=== PATIENT | female | born 1950 | race Two or more races ===

== ENCOUNTER 2020-09-14 15:02 | Emergency (ER) | payer MEDICARE, SELFPAY ==
[2020-09-14 15:56] VITALS: BP 189/81; PULSE 81; RESP 16; TEMP 36.6; O2SAT 98; BMI 45.4
[2020-09-14 19:04] VITALS: BP 151/88; PULSE 78; RESP 19; TEMP 36.6; O2SAT 98
--- NOTE | 2020-09-14 19:29 | CT_ITS ---
EXAMINATION: CT ABDOMEN AND PELVIS WITH CONTRAST CLINICAL INFORMATION: Left lower quadrant pain COMPARISON: None TECHNIQUE: Multidetector volumetric images were obtained from the superior aspect of the liver through the pubic symphysis following administration 85 mL of Omnipaque 350 intravenous contrast. Sagittal and coronal reformatted images were obtained on the technologist's workstation. Oral contrast: No This CT examination was performed using dose optimization techniques as appropriate, variously including the following: *Automated exposure control *Adjustment of mA and/or kV according to patient size (this includes techniques or standardized protocols for targeted exams where dose is matched to indication/reason for exam; i.e. extremities or head) *Use of iterative reconstruction technique DLP: 975 mGy-cm FINDINGS: LUNG BASES: The visualized lung bases are unremarkable. LIVER, GALLBLADDER, AND BILIARY TREE: The liver is normal in size, shape, and attenuation. There are a few scattered subcentimeter cysts. No suspicious liver lesions no intrahepatic or extrahepatic biliary ductal dilatation. Gallbladder unremarkable. PANCREAS: Unremarkable. SPLEEN: Unremarkable. ADRENAL GLANDS: Unremarkable. KIDNEYS AND URETERS: The kidneys are normal in size, shape, and attenuation. Subcentimeter cyst within the midpole left kidney and upper pole of the right kidney. There is a 3 mm hypodensity within the lower pole of the right kidney which is too small to characterize. No hydronephrosis, hydroureter, or calculi seen. No perinephric stranding. BLADDER: Unremarkable. GASTROINTESTINAL TRACT: There is inflammation surrounding a lobule of fat along the inferior sigmoid colon as seen on coronal image 49 and axial image 80, most compatible with epiploic appendicitis. Gastrointestinal tract otherwise unremarkable. ABDOMINAL WALL: No significant hernia is appreciated. LYMPH NODES: Normal. VASCULAR: Unremarkable. PELVIC VISCERA: Hysterectomy. Left oophorectomy. Right ovary unremarkable. OSSEOUS STRUCTURES: No acute or suspicious osseous abnormalities. CT/CT abdomen pelvis w con IMPRESSION: Findings compatible with epiploic appendagitis involving the sigmoid colon.
[2020-09-14 19:50] LABS: Basophils Percent Auto 0.4 % (0-2); Eosinophils Absolute Auto 0.2 X10*3/uL (0.0-0.4); Eosinophils Percent Auto 2.9 % (0-4); Hematocrit 45.1 % (37-47); Imm Gran Abs Auto 0.01 X10*3/uL (0.00-0.03); Imm Gran Pct Auto 0.1 % (0.0-0.4); Lymphocytes Absolute Auto 2.2 X10*3/uL (1.2-4.9); Lymphocytes Percent Auto 27.2 % (20-40); Mean Corpuscular HGB Conc 33.3 g/dl (31.0-35.0); Mean Corpuscular Hemoglobin 32.5 pg (27.0-33.0); Mean Corpuscular Volume 97.8 fL (80-98); Mean Platelet Volume 11.1 fL (9.4-12.3); Monocytes Absolute Auto 0.5 X10*3/uL (0.1-1.2); Monocytes Percent Auto 5.5 % (2-11); Neutrophils Absolute Auto 5.2 X10*3/uL (2.0-8.3); Neutrophils Percent Auto 63.9 % (45-73); Platelet Count 227 X10*3/uL (160-400); Red Blood Count 4.61 X10*6/uL (4.20-5.50); Red Cell Distribution Width 12.9 % (11.0-16.0); White Blood Count 8.2 X10*3/uL (4.8-10.8)
[2020-09-14 19:51] LABS: MANUAL DIFF FLAG NO
--- NOTE | 2020-09-14 20:00 | ED.ABDPAIN ---
HPI - Abdominal Pain General Chief Complaint: Abdominal Pain Stated Complaint: Pelvis pain Time Seen by Provider: 09/14/20 19:18 Source: patient Mode of arrival: ambulatory Limitations: no limitations History of Present Illness HPI narrative: Patient comes to the emergency room complaining of left lower quadrant pain since 05:00. Patient states she initially tried to wait it out at home, however at 15:00 the pain became very intense and decided to come to the emergency room. Patient states that she has history of constipation, today she got [id number] medicine for constipation and the pharmacy, but did not drink it because she was not feeling well and came here to the ED. patient denies previous history of diverticulosis. Patient denies vomiting, no diarrhea, no fever. Patient states the pain is 8 out of 10, constant, nonradiating. Denies urinary symptoms. Related Data Home Medications Medication Instructions Recorded Confirmed atorvastatin 1 tab PO BEDTIME 09/14/20 09/14/20 cetirizine 1 tab PO DAILY 09/14/20 09/14/20 cyclobenzaprine 1 tab PO TID PRN 09/14/20 09/14/20 famotidine 1 tab PO DAILY 09/14/20 09/14/20 Previous Rx's Medication Instructions Recorded ibuprofen 600 mg PO Q6H #14 tab 09/14/20 Allergies Allergy/AdvReac Type Severity Reaction Status Date / Time No Known Allergies Allergy Unverified 06/16/20 17:05 [No Known Allergies*] Review of Systems Review of Systems Constitutional : No Weight loss, No Fever, No Chills, No Night Sweats, No Fatigue, No Malaise ENT/Mouth : No Hearing loss, No Ear Pain, No Nasal Congestion, No Sinus Pain, No Hoarseness, No sore throat, No Rhinorrhea, No Swallowing Difficulty Eyes: No Eye Pain, No Swelling, No Redness, No Foreign Body, No Discharge, No Vision Changes Cardiovascular : No Chest Pain, No SOB, No Dyspnea on Exertion, No Orthopnea, No Edema, No Palpitations Respiratory : No Cough, No Sputum, No Wheezing, No Smoke Exposure, No Dyspnea Gastrointestinal : No Nausea, No Vomiting, No Diarrhea, No Constipation, complaining of left lower quadrant pain, No Hematochezia, No Melena Genitourinary : no irregular bleeding, No Dysuria, No Urinary Frequency, No Hematuria, No Urinary Incontinence, No Urgency, No Flank Pain, No Urinary Flow Changes, No Hesitancy Musculoskeletal : No joint pain, No Myalgias, No Joint Swelling Skin : No Skin Lesions, No rash Neuro : No Weakness, No Numbness, No Paresthesias, No Loss of Consciousness, No Dizziness, No Headache Psych : No Anxiety/Panic, No Depression, No SI/HI/AH/VH, No Social Issues, Heme/Lymph: No Bruising, No Bleeding,No Lymphadenopathy Endocrine : No Polyuria, No Polydipsia, No Temperature Intolerance Physical Exam Vital Signs: Vital Signs: Last Vital Signs Temp 97.9 F 09/14/20 19:04 Pulse 78 09/14/20 19:04 Resp 19 09/14/20 20:02 BP 151/88 H 09/14/20 19:04 Pulse Ox 98 09/14/20 19:04 Body Mass Index 45.4 Appearance: Alert. Oriented X3. No acute distress. Eyes: Pupils equal, round and reactive to light. ENT: Pharynx normal. Neck: Normal inspection. Neck supple. No lymph nodes noted. No crepitus CVS: Normal heart rate and rhythm. Pulses normal. Normal S1 and S2 Respiratory: No respiratory distress. Breath sounds normal. No Wheezing. No rales Abdomen: Soft , tender to palpation in left lower quadrant, No rigidity. No distention. good BS x4 Skin: Skin warm and dry. Normal skin color. Normal skin turgor. Extremities: No lower extremity edema. No lower extremity edema. No Lacerations. No Rash Neuro: Oriented X 3. No motor deficit. No sensory deficit. Moving all extermities. No slurred speech. Course Course Course Narrative: Patient is feeling better, I discussed with the patient the CT findings, patient does not have diverticulosis, perforation or infection. Patient will be medicated with ibuprofen prior to discharge, and her prescription will be sent to the pharmacy. MDM - Abdominal Pain Lab Data Result diagrams: 09/14/20 19:42 09/14/20 20:15 Labs: Lab Results 09/14/20 09/14/20 09/14/20 Range/Units 19:42 19:42 20:15 WBC 8.2 (4.8-10.8) X10*3/uL RBC 4.61 (4.20-5.50) X10*6/uL Hgb 15.0 (12.0-16.0) g/dl Hct 45.1 (37-47) % MCV 97.8 (80-98) fL MCH 32.5 (27.0-33.0) pg MCHC 33.3 (31.0-35.0) g/dl RDW 12.9 (11.0-16.0) % Plt Count 227 (160-400) X10*3/uL MPV 11.1 (9.4-12.3) fL Immature Gran % (Auto) 0.1 (0.0-0.4) % Neut % (Auto) 63.9 (45-73) % Lymph % (Auto) 27.2 (20-40) % [place] % (Auto) 5.5 (2-11) % Eos % (Auto) 2.9 (0-4) % Baso % (Auto) 0.4 (0-2) % Lymph # (Auto) 2.2 (1.2-4.9) X10*3/uL [place] # (Auto) 0.5 (0.1-1.2) X10*3/uL Eos # (Auto) 0.2 (0.0-0.4) X10*3/uL Baso # (Auto) 0.0 (0.0-0.2) X10*3/uL Abs Immat Gran (auto) 0.01 (0.00-0.03) X10*3/uL Absolute Neuts (auto) 5.2 (2.0-8.3) X10*3/uL Absolute Nucleated RBC 0.000 (0.0-0.012) X10*3/uL Nucleated RBC % (auto) 0.0 (0.0-0.2) /100WBC Sodium Cancelled 140 Potassium Cancelled 4.3 Chloride Cancelled 104 Carbon Dioxide Cancelled 29 Anion Gap Cancelled 11 L BUN Cancelled 17 H Creatinine Cancelled 0.83 Estim Creat Clear Calc Cancelled 82.8 Estimated GFR Cancelled > 60 Random Glucose Cancelled 91 Calcium Cancelled 9.7 Total Bilirubin Cancelled 0.4 Direct Bilirubin Cancelled 0.2 AST Cancelled 18 ALT Cancelled 11 Alkaline Phosphatase Cancelled 82 Total Protein Cancelled 7.4 Albumin Cancelled 4.[address] scan - abdomen: Radiologist's impression: This CT examination was performed using dose optimization techniques as appropriate, variously including the following: *Automated exposure control *Adjustment of mA and/or kV according to patient size (this includes techniques or standardized protocols for targeted exams where dose is matched to indication/reason for exam; i.e. extremities or head) *Use of iterative reconstruction technique DLP: 975 mGy-cm FINDINGS: LUNG BASES: The visualized lung bases are unremarkable. LIVER, GALLBLADDER, AND BILIARY TREE: The liver is normal in size, shape, and attenuation. There are a few scattered subcentimeter cysts. No suspicious liver lesions no intrahepatic or extrahepatic biliary ductal dilatation. Gallbladder unremarkable. PANCREAS: Unremarkable. SPLEEN: Unremarkable. ADRENAL GLANDS: Unremarkable. KIDNEYS AND URETERS: The kidneys are normal in size, shape, and attenuation. Subcentimeter cyst within the midpole left kidney and upper pole of the right kidney. There is a 3 mm hypodensity within the lower pole of the right kidney which is too small to characterize. No hydronephrosis, hydroureter, or calculi seen. No perinephric stranding. BLADDER: Unremarkable. GASTROINTESTINAL TRACT: There is inflammation surrounding a lobule of fat along the inferior sigmoid colon as seen on coronal image 49 and axial image 80, most compatible with epiploic appendicitis. Gastrointestinal tract otherwise unremarkable. ABDOMINAL WALL: No significant hernia is appreciated. LYMPH NODES: Normal. VASCULAR: Unremarkable. PELVIC VISCERA: Hysterectomy. Left oophorectomy. Right ovary unremarkable. OSSEOUS STRUCTURES: No acute or suspicious osseous abnormalities. CT/CT abdomen pelvis w con IMPRESSION: Findings compatible with epiploic appendagitis involving the sigmoid colon. Discharge Plan Discharge Clinical Impression: Epiploic appendagitis Patient Disposition: Home, Self-Care Instructions: Abdominal Pain (ED) Additional Instructions: Please follow-up with your primary care physician tomorrow. If you have any worsening or new symptoms, please return to the emergency room or call 911 Prescriptions: New ibuprofen 600 mg tablet 600 mg PO Q6H Qty: 14 RF: 0 No Action atorvastatin 20 mg tablet 1 tab PO BEDTIME RF: 0 cetirizine 10 mg tablet 1 tab PO DAILY RF: 0 famotidine 40 mg tablet 1 tab PO DAILY RF: 0 cyclobenzaprine 5 mg tablet 1 tab PO TID PRN (Reason: Pain) RF: 0 PMFSH Past Medical History Medical History (Updated 09/14/20 @ 22:08 by Danyelle Bucio MD) Hypercholesteremia Social History Social History Alcohol intake: never Smoked in Last 30 Days: No Use of substances other than those prescribed or required for medical reasons: No Advance Directives: No Advance Directives Information Provided: Yes
[2020-09-14 20:02] VITALS: RESP 19
[2020-09-14] MEDS: ondansetron HCL 4 MG/2 ML VIAL IVPUSH (20:02)
[2020-09-14] MEDS: Morphine Sulfate 4 MG/ML CARTRIDGE IVPUSH (20:02)
[2020-09-14 20:58] LABS: Alanine Aminotransferase 11 U/L (0-31); Albumin Level 4.6 g/dL (3.5-5.0); Alkaline Phosphatase 82 U/L (39-117); Anion Gap 11 (12-20); Aspartate Amino Transferase 18 U/L (5-31); Bilirubin Direct 0.2 mg/dL (0.0-0.5); Bilirubin Total 0.4 mg/dL (0.0-1.0); Blood Urea Nitrogen 17 mg/dL (9-16); Calcium 9.7 mg/dL (8.4-10.2); Carbon Dioxide 29 mmol/L (22-29); Chloride 104 mmol/L (96-108); Creatinine Clr Calc Pharmacy 82.8; Estimated Glomerular Filt Rate > 60; Glucose Random 91 mg/dL (60-115); Potassium 4.3 mmol/l (3.3-5.1); Sodium 140 mmol/L (135-145); Total Protein 7.4 g/dL (6.5-8.0)
[2020-09-14] MEDS: iohexoL 350 MG/ML 100 ML INFUS..BTL IV (21:21)
[2020-09-14] MEDS: Ibuprofen 600 MG TABLET PO (22:18)
== END 2020-09-14 22:24 | disposition home or self-care (01) ==
PROVIDERS: Emergency Provider Emergency Medicine; PCP Family Medicine
DX: K63.89 Other specified diseases of intestine (principal); R10.32 Left lower quadrant pain
CPT/HCPCS: 36415; 74177; 80048; 80076; 85025; 96374; 96375; 99284; J2270; J2405; Q9967

== ENCOUNTER 2021-07-10 11:29 | Emergency (ER) | payer MEDICARE, SELFPAY ==
[2021-07-10 11:54] VITALS: BP 165/90; PULSE 82; RESP 16; TEMP 37.1; O2SAT 95; BMI 46.3
== END 2021-07-10 14:15 | disposition left against medical advice (07) ==
PROVIDERS: Emergency Provider Emergency Medicine
DX: R10.2 Pelvic and perineal pain (principal)
CPT/HCPCS: 99281; 99282

== ENCOUNTER 2022-02-08 07:01 | Outpatient (REF) | payer MEDICARE, SELFPAY ==
--- NOTE | ~2022-02-08 | XR_ITS ---
EXAMINATION: XR KNEE STANDING, BILATERAL XR KNEE, RIGHT CLINICAL INFORMATION: Right knee pain COMPARISON: None TECHNIQUE: AP bilateral knees standing. Right knee 2 views. FINDINGS: AP BILATERAL KNEE: There is severe loss of medial compartment joint spaces, both knees, with moderate jane-articular spurring. The lateral compartment joints were maintained, normal. RIGHT KNEE: There is loss of patellofemoral compartment joint space with superior jane-articular spurring. There is mild suprapatellar joint effusion. No visible acute fracture, dislocation, or subluxation seen. XR/XR knee RT 2V IMPRESSION: 1. Severe degenerative changes, medial compartment, both knees, with moderate jane-articular spurring. 2. Mild suprapatellar joint effusion with degenerative changes, patellofemoral compartment, right knee. No acute fracture or loose body seen.
--- NOTE | ~2022-02-08 | XR_ITS ---
EXAMINATION: XR KNEE STANDING, BILATERAL XR KNEE, RIGHT CLINICAL INFORMATION: Right knee pain COMPARISON: None TECHNIQUE: AP bilateral knees standing. Right knee 2 views. FINDINGS: AP BILATERAL KNEE: There is severe loss of medial compartment joint spaces, both knees, with moderate jane-articular spurring. The lateral compartment joints were maintained, normal. RIGHT KNEE: There is loss of patellofemoral compartment joint space with superior jane-articular spurring. There is mild suprapatellar joint effusion. No visible acute fracture, dislocation, or subluxation seen. XR/XR knee standing BI IMPRESSION: 1. Severe degenerative changes, medial compartment, both knees, with moderate jane-articular spurring. 2. Mild suprapatellar joint effusion with degenerative changes, patellofemoral compartment, right knee. No acute fracture or loose body seen.
== END 2022-02-08 07:02 | disposition home or self-care (01) ==
LOC: HO.HOSX 07:01
PROVIDERS: Visit Provider Orthopaedic Surgery
DX: M25.561 Pain in right knee (principal); M17.11 Unilateral primary osteoarthritis, right knee; E78.00 Pure hypercholesterolemia, unspecified; E66.9 Obesity, unspecified; Z68.42 Body mass index [BMI] 45.0-49.9, adult; Z98.890 Other specified postprocedural states
CPT/HCPCS: 20610; 73560; 73565; 99202; J1100

== ENCOUNTER 2022-09-01 06:22 | Emergency (ER) | payer MEDICARE, SELFPAY ==
--- NOTE | 2022-09-01 | ECG_ITS ---
Test Reason : abd pain Blood Pressure : / mmHG Vent. Rate : 070 BPM Atrial Rate : 070 BPM P-R Int : 176 ms QRS Dur : 090 ms QT Int : 386 ms P-R-T Axes : 001 -12 033 degrees QTc Int : 416 ms Normal sinus rhythm Normal ECG When compared with ECG of 15-FEB-2019 10:46, No significant change was found Referred By: Generic ED Physician Electronically Signed By:Dangelo Stern
--- NOTE | ~2022-09-01 | CT_ITS ---
EXAMINATION: CT ABDOMEN AND PELVIS WITH CONTRAST CLINICAL INFORMATION: Abdominal pain. COMPARISON: 09/14/2020 TECHNIQUE: Multidetector volumetric images were obtained from the superior aspect of the liver through the pubic symphysis following administration 85 mL of Omnipaque 350 intravenous contrast. Sagittal and coronal reformatted images were obtained on the technologist's workstation. Oral contrast: No This CT examination was performed using dose optimization techniques as appropriate, variously including the following: *Automated exposure control *Adjustment of mA and/or kV according to patient size (this includes techniques or standardized protocols for targeted exams where dose is matched to indication/reason for exam; i.e. extremities or head) *Use of iterative reconstruction technique DLP: 1359 mGy-cm FINDINGS: LOCALIZER IMAGES: Obese body habitus. Normal bowel gas pattern. LUNG BASES: No acute findings in the visualized lung bases. No pulmonary consolidation or pleural effusion. The right diaphragm is chronically elevated, unchanged compared to 09/14/2020. LIVER: The liver has normal size, shape, and attenuation. 1 cm simple cyst is present in the left lobe of the liver. Also, there appear to be two very small cysts in the right lobe. No suspicious hepatic lesion. No liver imaging follow-up is recommended. GALLBLADDER AND BILIARY TREE: Gallbladder is without radiopaque stones, wall thickening or pericholecystic fluid. No dilated bile ducts. PANCREAS: Normal. No edema, pancreatic ductal dilatation or mass. SPLEEN: Normal. ADRENAL GLANDS: Normal. KIDNEYS AND URETERS: Kidneys are normal in size and enhance symmetrically. No nephrolithiasis or hydronephrosis. Small simple cysts of both kidneys. No renal imaging follow-up is recommended. No nephrolithiasis, hydronephrosis or perinephric edema. The ureters are unremarkable. BLADDER: Normal. No calculi or wall thickening. BOWEL AND PERITONEUM: Stomach is unremarkable. No dilated loops of bowel. The appendix is normal. No overt bowel wall thickening. No free fluid or pneumoperitoneum. There is a focus of circumscribed fat surrounded by mild haziness inferior to the sigmoid colon, corresponding to same region of mild inflammation of fat observed on 09/14/2020. If patient has pelvic pain, then this could represent recurrent epiploic appendagitis. There is no evidence of an inflamed diverticulum in this region. ABDOMINAL WALL: Unremarkable. VASCULATURE: Unremarkable. LYMPH NODES: No pathologic sized lymph nodes in the abdomen or pelvis. No inguinal lymphadenopathy. PELVIC VISCERA: Status post hysterectomy. No adnexal mass. No pelvic free fluid. MUSCULOSKELETAL: No suspicious bone lesions. 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 Chronic moderate degenerative change of L3-L4, L4-5 and L5-S1. Also, there are are multilevel discovertebral degenerative changes of the visualized lower thoracic spine. CT/CT abdomen pelvis w IV con IMPRESSION: The findings are consistent with epiploic appendagitis along the inferior sigmoid colon. Correlate for presence of pelvic pain. No new abnormalities along the gastrointestinal tract compared to 09/14/2020.
[2022-09-01 06:26] VITALS: BP 165/91; PULSE 66; RESP 18; TEMP 36.6; O2SAT 95; BMI 50.3
[2022-09-01 06:41] LABS: MANUAL DIFF FLAG NO
[2022-09-01 07:00] LABS: Basophils Percent Auto 0.7 % (0-2); Eosinophils Absolute Auto 0.2 X10*3/uL (0.0-0.4); Eosinophils Percent Auto 2.7 % (0-4); Hematocrit 41.4 % (37.0-47.0); Imm Gran Abs Auto 0.01 X10*3/uL (0.00-0.03); Imm Gran Pct Auto 0.2 % (0.0-0.4); Lymphocytes Absolute Auto 2.2 X10*3/uL (1.2-4.9); Lymphocytes Percent Auto 37.2 % (20-40); Mean Corpuscular HGB Conc 33.8 g/dl (31.0-35.0); Mean Corpuscular Volume 94.7 fL (80.0-98.0); Monocytes Absolute Auto 0.5 X10*3/uL (0.1-1.2); Monocytes Percent Auto 7.8 % (2-11); Neutrophils Absolute Auto 3.1 x10*3/uL (2.0-8.3); Neutrophils Percent Auto 51.4 % (45-73); Platelet Count 208 X10*3/uL (160-400); Red Blood Count 4.37 X10*6/uL (4.20-5.50); White Blood Count 5.9 X10*3/uL (4.8-10.8)
[2022-09-01 07:19] LABS: Influenza A PCR NEGATIVE (Negative); Influenza B PCR NEGATIVE (Negative); Resp Syncy Virus RNA Qual PCR NEGATIVE (Negative); SARS COV2 PCR INHOUSE NEGATIVE (Negative)
[2022-09-01 07:55] VITALS: BP 154/80; PULSE 72; RESP 16; TEMP 36.8; O2SAT 97
[2022-09-01 07:56] LABS: Alanine Aminotransferase 10 U/L (0-31); Albumin Level 4.1 g/dL (3.5-5.0); Alkaline Phosphatase 78 U/L (39-117); Anion Gap 12 (12-20); Aspartate Amino Transferase 18 U/L (5-31); Bilirubin Total 0.6 mg/dL (0.0-1.0); Blood Urea Nitrogen 14 mg/dL (9-16); Calcium 9.4 mg/dL (8.4-10.2); Carbon Dioxide 22 mmol/L (22-29); Chloride 106 mmol/L (96-108); Creatinine Clr Calc Pharmacy 82.5; Estimated Glomerular Filt Rate > 60; Glucose Random 98 mg/dL (60-115); Lipase 22 U/L (8-78); Potassium 4.1 mmol/L (3.3-5.1); Sodium 136 mmol/L (135-145); Total Protein 6.7 g/dL (6.5-8.0)
[2022-09-01 08:26] LABS: Appearance Urine Clear; Color Urine Yellow; Glucose Urine UA Negative (Negative); Leukocyte Esterase Urine Negative (Negative); Nitrite Urine Negative (Negative); PH 5.5 (5.0-9.0); Specific Gravity - Urine 1.015 (1.005-1.025); Urine Blood Negative (Negative); Urine Ketones Negative (Negative); Urine Protein Negative (Neg-Trace)
--- NOTE | 2022-09-01 08:27 | ED_ITS ---
HPI - General Adult General Chief complaint: General Medical Stated complaint: Abd pain/ Nausea Time Seen by Provider: 09/01/22 07:59 Source: patient Mode of arrival: ambulatory Limitations: no limitations History of Present Illness HPI narrative: 72 year old female with a past medical history of epiploic appendagitis and high cholesterol presents to the ED today with abdominal pain. The patient states she has had left lower quadrant abdominal pain for approximately 2 weeks. She did call her primary care doctor last week who told her to go to the emergency room because it will be faster , but she did not want to come at that time. Denies any nausea or vomiting. There has been no diarrhea. Pain is mil [id number] and is fairly constant. Onset (ago): week(s) Location: abdomen Radiation: non-radiation Severity: mild and moderate Quality: aching and dull Pain Consistency: constant Relieving factors: none Exacerbating factors: none Associated symptoms: denies other symptoms Related Data Home Medications Medication Instructions Recorded Confirmed atorvastatin 20 mg tablet 1 tab PO BEDTIME 09/14/20 09/14/20 cetirizine 10 mg tablet 1 tab PO DAILY 09/14/20 09/14/20 cyclobenzaprine 5 mg tablet 1 tab PO TID PRN Pain 09/14/20 09/14/20 famotidine 40 mg tablet 1 tab PO DAILY 09/14/20 09/14/20 Previous Rx's Medication Instructions Recorded ibuprofen 600 mg tablet 600 mg PO Q6H #14 tabs 09/14/20 Allergies Allergy/AdvReac Type Severity Reaction Status Date / Time No Known Allergies Allergy Verified 09/01/22 06:30 [No Known Allergies*] Review of Systems Constitutional: Constitutional: Denies chills, Denies fever(s), Denies headache(s), Denies weakness, Denies weight gain and Denies weight loss Eyes: Eyes: Denies blurry vision and Denies diplopia ENT: Denies dizziness, Denies headache(s) and Denies sore throat Cardiovascular: Cardiovascular: Denies chest pain, Denies rapid heart rate, Denies Loss of Consciousness and Denies dyspnea Respiratory: Respiratory: Denies cough, Denies dyspnea and Denies wheezing Gastrointestinal: Gastrointestinal: Reports abdominal pain, Denies consti pation, Denies diarrhea and Denies nausea Genitourinary: Genitourinary: Reports no additional female genitourinary complaints Musculoskeletal: Musculoskeletal: Reports no additional musculoskeletal complaints Neurologic: Denies Abnormal speech present, Denies dizziness, Denies headache(s) and Denies weakness Allergic/Immunologic: Allergic/Immunologic: Denies wheezing [facility] Past Medical History Attestation statement: The following information was validated with the patient. Medical History Hypercholesteremia Social History Social History Alcohol intake: never Smoked in Last 30 Days: No Use of substances other than those prescribed or required for medical reasons: No Advance Directives: No Advance Directives Information Provided: Yes Physical Exam ED Vital Signs: Vital Signs - 24 hr 09/01/22 06:26 09/01/22 07:55 09/01/22 08:32 Temperature 98 F 98.2 F Pulse Rate 66 72 70 Respiratory Rate 18 16 20 Blood Pressure 165/91 H 154/80 H 128/63 Pulse Oximetry 95 97 96 Oxygen Delivery Method Room Air Room Air Room Air 09/01/22 10:59 Temperature 98.4 F Pulse Rate 67 Respiratory Rate 16 Blood Pressure 139/62 Pulse Oximetry 94 Oxygen Delivery Method Room Air BMI result Body Mass Index 50.3 Vital signs stable and normal with mild hypertension Const General: cooperative, healthy appearing and no acute distress; No acute distress Nutritional Appearance: obese Orientation/consciousness: patient oriented x3 HENMT Head: Yes normal to inspection, Yes normocephalic and Yes atraumatic Ears: external ears normal General nose exam: Normal external nose present Face and sinus: Yes normal facial exam Eyes Eyelids: Yes eyelids normal Conjunctivae: conjunctivae normal Sclerae: sclerae normal Pupils: Equal, round and reactive pupils present EOM: EOMs intact bilaterally Neck Neck: Yes normal visual inspection and Yes full ROM Resp Effort & Inspection: normal respiratory effort and no cough Auscultation: clear to auscultation bilaterally Cardio Rate: regular rate Rhythm: regular rhythm GI Inspection: Yes obesity Palpation (GI): Soft to palpation and nontender General: Yes CVA tenderness and Yes no CVA tenderness Back/Spine/Pelvis Back: no CVA tenderness and CVA tenderness Skin General skin exam: no rashes or lesions noted, no mottling and no pallor Neuro General: patient oriented x3 Cranial nerves: Yes CN's II-XII intact bilaterally and Yes Equal, round and reactive pupils present Cognition (Neuro): normal cognition Speech: No Abnormal speech present Gait exam (Neuro): Normal gait present Medications Administered Discontinued Medications Generic Name Dose Route Start Last Admin Trade Name Ann PRN Reason Stop Dose Admin Iohexol 100 ml 09/01/22 11:11 09/01/22 11:12 Iohexol 350 Mg/Ml 100 Ml Infus..Btl IV 09/01/22 11:12 85 ml ONCE ONE Administration Medical Decision Making MDM Narrative Medical decision making narrative: 72-year-old female presenting to the ED with abdominal pain. Similar to previous episodes. The patient states she has been diagnosed with epiploic appendagitis in the past. Laboratory studies were reviewed and are documented below. CT scan normal with the exception of finding epiploic appendagitis as documented below. the patient will be discharged home with mild pain medication and instructed to follow-up with her primary care doctor Medical Records Medical records reviewed: Yes I reviewed the patient's medical records. Lab Data Lab results reviewed: Yes I reviewed the patient's lab results. Lab results narrative: labs are normal Result diagrams: 09/01/22 06:33 09/01/22 06:33 Labs: Lab Results 09/01/22 09/01/22 09/01/22 Range/Units 06:33 06:33 06:35 WBC 5.9 (4.8-10.8) X10*3/uL RBC 4.37 (4.20-5.50) X10*6/uL Hgb 14.0 (12.0-16.0) g/dl Hct 41.4 (37.0-47.0) % MCV 94.7 (80.0-98.0) fL MCH 32.0 (27.0-33.0) pg MCHC 33.8 (31.0-35.0) g/dl RDW 13.0 (11.0-16.0) % Plt Count 208 (160-400) X10*3/uL MPV 11.0 (9.4-12.3) fL Immature Gran % (Auto) 0.2 (0.0-0.4) % Neut % (Auto) 51.4 (45-73) % Lymph % (Auto) 37.2 (20-40) % [place] % (Auto) 7.8 (2-11) % Eos % (Auto) 2.7 (0-4) % Baso % (Auto) 0.7 (0-2) % Lymph # (Auto) 2.2 (1.2-4.9) X10*3/uL [place] # (Auto) 0.5 (0.1-1.2) X10*3/uL Eos # (Auto) 0.2 (0.0-0.4) X10*3/uL Baso # (Auto) 0.0 (0.0-0.2) X10*3/uL Abs Immat Gran (auto) 0.01 (0.00-0.03) X10*3/uL Absolute Neuts (auto) 3.1 (2.0-8.3) x10*3/uL Absolute Nucleated RBC 0.000 (0.0-0.012) X10*3/uL Nucleated RBC % (auto) 0.0 (0.0-0.2) /100WBC Sodium 136 (135-145) mmol/L Potassium 4.1 (3.3-5.1) mmol/L Chloride 106 (96-108) mmol/L Carbon Dioxide 22 (22-29) mmol/L Anion Gap 12 (12-20) BUN 14 (9-16) mg/dL Creatinine 0.80 (0.5-1.4) mg/dL Estim Creat Clear Calc 82.5 Estimated GFR > 60 Random Glucose 98 (60-115) mg/dL Calcium 9.4 (8.4-10.2) mg/dL Total Bilirubin 0.6 (0.0-1.0) mg/dL AST 18 (5-31) U/L ALT 10 (0-31) U/L Alkaline Phosphatase 78 (39-117) U/L Total Protein 6.7 (6.5-8.0) g/dL Albumin 4.1 (3.5-5.0) g/dL Lipase 22 (8-78) U/L Urine Color Urine Appearance Urine pH (5.0-9.0) Ur Specific [place] (1.005-1.025) Urine Protein (Neg-Trace) mg/dL Urine Glucose (UA) (Negative) mg/dL Urine Ketones (Negative) mg/dL Urine Blood (Negative) Urine Nitrite (Negative) Ur Leukocyte Esterase (Negative) Influenza Type A (PCR) NEGATIVE (Negative) Influenza Type B (PCR) NEGATIVE (Negative) RSV RNA Qual (PCR) NEGATIVE (Negative) SARS-CoV-2 RNA (RT-PCR) NEGATIVE (Negative) 09/01/22 Range/Units 08:16 WBC (4.8-10.8) X10*3/uL RBC (4.20-5.50) X10*6/uL Hgb (12.0-16.0) g/dl Hct (37.0-47.0) % MCV (80.0-98.0) fL MCH (27.0-33.0) pg MCHC (31.0-35.0) g/dl RDW (11.0-16.0) % Plt Count (160-400) X10*3/uL MPV (9.4-12.3) fL Immature Gran % (Auto) (0.0-0.4) % Neut % (Auto) (45-73) % Lymph % (Auto) (20-40) % [place] % (Auto) (2-11) % Eos % (Auto) (0-4) % Baso % (Auto) (0-2) % Lymph # (Auto) (1.2-4.9) X10*3/uL [place] # (Auto) (0.1-1.2) X10*3/uL Eos # (Auto) (0.0-0.4) X10*3/uL Baso # (Auto) (0.0-0.2) X10*3/uL Abs Immat Gran (auto) (0.00-0.03) X10*3/uL Absolute Neuts (auto) (2.0-8.3) x10*3/uL Absolute Nucleated RBC (0.0-0.012) X10*3/uL Nucleated RBC % (auto) (0.0-0.2) /100WBC Sodium (135-145) mmol/L Potassium (3.3-5.1) mmol/L Chloride (96-108) mmol/L Carbon Dioxide (22-29) mmol/L Anion Gap (12-20) BUN (9-16) mg/dL Creatinine (0.5-1.4) mg/dL Estim Creat Clear Calc Estimated GFR Random Glucose (60-115) mg/dL Calcium (8.4-10.2) mg/dL Total Bilirubin (0.0-1.0) mg/dL AST (5-31) U/L ALT (0-31) U/L Alkaline Phosphatase (39-117) U/L Total Protein (6.5-8.0) g/dL Albumin (3.5-5.0) g/dL Lipase (8-78) U/L Urine Color Yellow Urine Appearance Clear Urine pH 5.5 (5.0-9.0) Ur Specific [place] 1.015 (1.005-1.025) Urine Protein Negative (Neg-Trace) mg/dL Urine Glucose (UA) Negative (Negative) mg/dL Urine Ketones Negative (Negative) mg/dL Urine Blood Negative (Negative) Urine Nitrite Negative (Negative) Ur Leukocyte Esterase Negative (Negative) Influenza Type A (PCR) (Negative) Influenza Type B (PCR) (Negative) RSV RNA Qual (PCR) (Negative) SARS-CoV-2 RNA (RT-PCR) (Negative) Imaging Data CT scan - abdomen: Radiologist's impression: IMPRESSION: The findings are consistent with epiploic appendagitis along the inferior sigmoid colon. Correlate for presence of pelvic pain. No new abnormalities along the gastrointestinal tract compared to 09/14/2020 Discharge Plan Discharge Clinical Impression: Epiploic appendagitis, Abdominal pain Patient Disposition: Home, Self-Care Instructions: Abdominal Pain (ED) Additional Instructions: may take ibuprofen 600 mg. every every 6 hours as needed for pain. Prescriptions: No Action atorvastatin 20 mg tablet 1 tab PO BEDTIME cetirizine 10 mg tablet 1 tab PO DAILY famotidine 40 mg tablet 1 tab PO DAILY cyclobenzaprine 5 mg tablet 1 tab PO TID PRN (Reason: Pain) ibuprofen 600 mg tablet 600 mg PO Q6H Qty: 14 0RF
[2022-09-01 08:32] VITALS: BP 128/63; PULSE 70; RESP 20; O2SAT 96
[2022-09-01 10:59] VITALS: BP 139/62; PULSE 67; RESP 16; TEMP 36.9; O2SAT 94
[2022-09-01] MEDS: iohexoL 350 MG/ML 100 ML INFUS..BTL IV (11:12)
== END 2022-09-01 13:30 | disposition home or self-care (01) ==
PROVIDERS: Emergency Provider Emergency Medicine
DX: K63.89 Other specified diseases of intestine (principal); R10.32 Left lower quadrant pain; Z20.822 Contact with and (suspected) exposure to COVID-19; E78.5 Hyperlipidemia, unspecified; E66.9 Obesity, unspecified; Z68.43 Body mass index [BMI] 50.0-59.9, adult; Z79.02 Long term (current) use of antithrombotics/antiplatelets; Z79.899 Other long term (current) drug therapy
CPT/HCPCS: 0241U; 36415; 74177; 80053; 81003; 83690; 85025; 93005; 99284; Q9967

== ENCOUNTER → 2022-09-13 08:14 | Outpatient (BNVA) | payer MEDICARE, SELFPAY | PROVIDERS: Visit Provider Orthopaedic Surgery | DX: M17.11 Unilateral primary osteoarthritis, right knee (principal) | CPT/HCPCS: 20610; 99212; J1100 ==

== ENCOUNTER 2022-12-28 12:49 | Emergency (ER) | payer MEDICARE, SELFPAY ==
--- NOTE | ~2022-12-28 | XR_ITS ---
EXAMINATION: XR SHOULDER, LEFT CLINICAL INFORMATION: Left shoulder pain. COMPARISON: None available. TECHNIQUE: Three views of the left shoulder. FINDINGS: The bones and soft tissues are normal. No fracture. Glenohumeral and acromioclavicular alignment is anatomic with normal joint space. No abnormal soft tissue calcifications. XR/XR shoulder LT min 2V IMPRESSION: Unremarkable left shoulder.
--- NOTE | ~2022-12-28 | XR_ITS ---
EXAMINATION: XR CERVICAL SPINE CLINICAL INFORMATION: Neck and shoulder pain. COMPARISON: Cervical spine radiographs dated 08/18/2019. TECHNIQUE: 3 views of the cervical spine were obtained. FINDINGS: There are no prevertebral soft tissue or bony abnormalities demonstrated. No compression fractures or subluxations are identified. Alignment is maintained at the atlanto-axial articulation. The disc spaces are preserved. Mild anterior osteophyte formation is seen at C5-6. No endplate changes are seen. The prevertebral soft tissues are normal. The foramina are patent. XR/XR cervical spine 3V IMPRESSION: C5-6 mild anterior osteophyte formation without significant change. No acute abnormality or significant degenerative changes.
[2022-12-28 12:54] VITALS: BP 158/81; PULSE 70; RESP 17; TEMP 36.3; O2SAT 97; BMI 47.8
--- NOTE | 2022-12-28 12:55 | ED.GENADULT ---
HPI - General Adult General Chief complaint: Extremity Problem <MARIELLE Ruiz Last Filed: 12/28/22 17:19> Stated complaint: L arm pain no inj <MARIELLE Ruiz Last Filed: 12/28/22 17:19> Time Seen by Provider: 12/28/22 13:06 <MARIELLE Ruiz Last Filed: 12/28/22 17:19> Source: patient and RN notes reviewed <MARIELLE James Last Filed: 12/28/22 18:57> Mode of arrival: ambulatory <MARIELLE James Last Filed: 12/28/22 18:57> Limitations: no limitations <MARIELLE James Last Filed: 12/28/22 18:57> History of Present Illness HPI narrative: This is a 72-year-old female with no significant past medical history, who presents emergency department today with complaints left shoulder pain and left sided neck pain since yesterday. Patient reports that she just returned from vacation and was wearing a backpack over her back. She states that she has slowly felt her left side of her neck as well as her left shoulder start to cause her pain. She reports that she woke up this morning and her pain was significant. She has had decreased range of motion of her left shoulder secondary to the pain. She denies history of shoulder injuries in the past. She denies any fevers, chills, nausea, vomiting, diarrhea chest pain, shortness of breath, or palpitations. She took muscle relaxers this morning which provided her with no relief. She also tried a heating pad without relief. <MARIELLE James Last Filed: 12/28/22 18:57> MD complaint: Left shoulder pain <MARIELLE James Last Filed: 12/28/22 18:57> Onset (ago): day(s) <MARIELLE James Last Filed: 12/28/22 18:57> Location: upper extremity <MARIELLE aJmes Last Filed: 12/28/22 18:57> Severity: moderate <MARIELLE James Last Filed: 12/28/22 18:57> Severity scale (1-10): 5 <MARIELLE James Last Filed: 12/28/22 18:57> Quality: aching <MARIELLE James - Last Filed: 12/28/22 18:57> Pain Consistency: constant <MARIELLE James - Last Filed: 12/28/22 18:57> Relieving factors: none <MARIELLE James - Last Filed: 12/28/22 18:57> Exacerbating factors: none <MARIELLE James - Last Filed: 12/28/22 18:57> Associated symptoms: denies other symptoms <MARIELLE James - Last Filed: 12/28/22 18:57> Treatments prior to arrival: none <MARIELLE James - Last Filed: 12/28/22 18:57> Related Data Home medications: Home Medications Medication Instructions Recorded Confirmed atorvastatin 20 mg tablet 1 tab PO BEDTIME 09/14/20 09/14/20 cetirizine 10 mg tablet 1 tab PO DAILY 09/14/20 09/14/20 cyclobenzaprine 5 mg tablet 1 tab PO TID PRN Pain 09/14/20 09/14/20 famotidine 40 mg tablet 1 tab PO DAILY 09/14/20 09/14/20 Previous Rx's Medication Instructions Recorded ibuprofen 600 mg tablet 600 mg PO Q6H #14 tabs 09/14/20 acetaminophen 325 mg capsule 650 mg PO Q6H PRN pain #30 caps 12/28/22 (Tylenol) cyclobenzaprine 5 mg tablet 5 mg PO BEDTIME PRN muscle spasm 12/28/22 #5 tabs <MARIELLE Ruiz - Last Filed: 12/28/22 17:19> Allergies/adverse reactions: Allergies Allergy/AdvReac Type Severity Reaction Status Date / Time No Known Allergies Allergy Verified 09/13/22 08:22 [No Known Allergies*] <MARIELLE Ruiz - Last Filed: 12/28/22 17:19> Review of Systems Review of Systems: Yes all other systems are reviewed and are negative <MARIELLE James - Last Filed: 12/28/22 18:57> [facility] Past Medical History Medical History: Medical History Hypercholesteremia <MARIELLE Ruiz Last Filed: 12/28/22 17:19> Social History Social History: Social History Alcohol intake: never Advance Directives: Yes Advance Directives Information Provided: Yes Advance Directives on File: No <MARIELLE Ruiz - Last Filed: 12/28/22 17:19> Physical Exam ED Vital Signs: Vital Signs - 24 hr 12/28/22 12:54 12/28/22 13:07 Temperature 97.4 F 97.5 F Pulse Rate 70 76 Respiratory Rate 17 18 Blood Pressure 158/81 H 168/83 H Pulse Oximetry 97 96 Oxygen Delivery Method Room Air Room Air BMI result Body Mass Index 47.8 <MARIELLE Ruiz - Last Filed: 12/28/22 17:19> Vital Signs - 24 hr 12/28/22 12:54 12/28/22 13:07 Temperature 97.4 F 97.5 F Pulse Rate 70 76 Respiratory Rate 17 18 Blood Pressure 158/81 H 168/83 H Pulse Oximetry 97 96 Oxygen Delivery Method Room Air Room Air BMI result Body Mass Index 47.8 <MARIELLE James - Last Filed: 12/28/22 18:57> General: Awake, alert, and oriented X3. No acute distress. HEENT: Normal inspection CVS: Normal heart rate and rhythm. Pulses normal. S1-S2 regular, no murmurs rubs or gallops. Respiratory: No respiratory distress, lungs clear to auscultation bilaterally Skin: Warm, dry, no rashes noted to exposed skin. Normal skin color. Normal skin turgor. Extremities: Left shoulder with tenderness to palpation over the entire joint, patient able to flex to approximately 90?, shoulder abduction about 90?, unable to perform lift-off test secondary to pain. Positive empty can test. Distal sensation and circulation intact. MSK: No midline cervical spine tenderness. Tenderness to palpation to the left cervical paraspinous muscles with spasm. Full ROM of the neck. Neuro: Oriented X 3. No motor deficit. No sensory deficit. <MARIELLE James - Last Filed: 12/28/22 18:57> Course Course Course Narrative: RME performed by Kamille Chery PA-C. Patient is 72 year old assigned female at presenting to the emergency department with left shoulder pain. Patient's exam is consistent with a left rotator cuff injury. Imaging ordered. Patient placed back in the waiting room pending room availability and results. <MARIELLE Ruiz - Last Filed: 12/28/22 17:19> Medications Administered Discontinued Medications Generic Name Dose Route Start Last Admin Trade Name Freq PRN Reason Stop Dose Admin Cyclobenzaprine HCl 5 mg 12/28/22 14:04 12/28/22 14:26 Cyclobenzaprine Hcl 5 Mg Tablet PO 12/28/22 14:05 5 mg ONCE ONE Administration Ketorolac Tromethamine 30 mg 12/28/22 14:04 12/28/22 14:25 Ketorolac Tromethamine 30 Mg/Ml Vial IM 12/28/22 14:05 30 mg ONCE ONE Administration <MARIELLE Ruiz - Last Filed: 12/28/22 17:19> Medications Administered Discontinued Medications Generic Name Dose Route Start Last Admin Trade Name Freq PRN Reason Stop Dose Admin Cyclobenzaprine HCl 5 mg 12/28/22 14:04 12/28/22 14:26 Cyclobenzaprine Hcl 5 Mg Tablet PO 12/28/22 14:05 5 mg ONCE ONE Administration Ketorolac Tromethamine 30 mg 12/28/22 14:04 12/28/22 14:25 Ketorolac Tromethamine 30 Mg/Ml Vial IM 12/28/22 14:05 30 mg ONCE ONE Administration <MARIELLE James - Last Filed: 12/28/22 18:57> Medical Decision Making Medical Decision Making [facility] Narrative: 72 y/o F presents to the ED for left shoulder and neck pain since yesterday. Recently wearing a backpack on shoulders yesterday. No recent trauma or injury. Left shoulder x-ray unremarkable. Cervical spine x-rays revealed C5-6 mild anterior osteophyte formation without significant change. No acute abnormality or significant degenerative changes . On examination patient has tenderness palpation overlying the left cervical paraspinous muscles, no midline spine tenderness. Good range of motion of the shoulder with a positive empty can test. Patient's vital signs are stable in the department today. Patient medicated in department with Toradol 30 mg IM and flexeril 5mg PO. Patient's symptoms significantly improved, with better ROM of the left shoulder. Patient's symptoms likely secondary to muscle spasms, but can have underlying tendinous injury. Discussed this with patient, discharged on flexeril and tylenol. Advised to use left shoulder and arm to prevent adhesive capsulitis. Advised if her symptoms do not improve, to call [facility] for further management. ? <MARIELLE James - Last Filed: 12/28/22 18:57> Differential Diagnosis Differential Diagnoses: The differential diagnosis associated with the presentation includes <MARIELLE James - Last Filed: 12/28/22 18:57> Cervical sprain, cervical radiculopathy, rotator cuff injury <MARIELLE James - Last Filed: 12/28/22 18:57> Independent Interpretation I performed an independent interpretation of an: Plain X-Ray <MARIELLE James - Last Filed: 12/28/22 18:57> Interpretation: I have reviewed cervical spine and shoulder x-rays and agree with radiologist's report. <MARIELLE James - Last Filed: 12/28/22 18:57> Radiology Impression Discussion of test interpretation with radiology: I have reviewed the radiologist's reading. <MARIELLE James - Last Filed: 12/28/22 18:57> Radiologist Impression: [address] [address] XRay Report Signed Patient: Kristal Calixto MR#: [id number] : 1950 Acct:[id number] Age/Sex: 72 / F ADM Date: 12/28/22 Loc: .ED Attending Dr: Ordering Physician: Viv Feliciano Date of Service: 12/28/22 Procedure(s): XR cervical spine 3V Accession Number(s): [id number] cc: Viv Feliciano~ EXAMINATION: XR CERVICAL SPINE CLINICAL INFORMATION: Neck and shoulder pain. COMPARISON: Cervical spine radiographs dated 08/18/2019. TECHNIQUE: 3 views of the cervical spine were obtained. FINDINGS: There are no prevertebral soft tissue or bony abnormalities demonstrated. No compression fractures or subluxations are identified. Alignment is maintained at the atlanto-axial articulation. The disc spaces are preserved. Mild anterior osteophyte formation is seen at C5-6. No endplate changes are seen. The prevertebral soft tissues are normal. The foramina are patent. XR/XR cervical spine 3V IMPRESSION: C5-6 mild anterior osteophyte formation without significant change. No acute abnormality or significant degenerative changes. ? [address] [address] XRay Report Signed Patient: Kristal Calixto MR#: [id number] : 1950 Acct:[id number] Age/Sex: 72 / F ADM Date: 12/28/22 Loc: HO.ED Attending Dr: Ordering Physician: Kamille Chery Date of Service: 12/28/22 Procedure(s): XR shoulder LT min 2V Accession Number(s): [id number] cc: Kamille Chery~ EXAMINATION: XR SHOULDER, LEFT CLINICAL INFORMATION: Left shoulder pain.? COMPARISON: None available.? TECHNIQUE: Three views of the left shoulder. FINDINGS: The bones and soft tissues are normal. No fracture. Glenohumeral and acromioclavicular alignment is anatomic with normal joint space. No abnormal soft tissue calcifications.? XR/XR shoulder LT min 2V IMPRESSION: Unremarkable left shoulder. <MARIELLE James - Last Filed: 12/28/22 18:57> Discharge Plan Discharge Clinical Impression: Acute pain of left shoulder, Spasm of cervical paraspinous muscle <MARIELLE Ruiz - Last Filed: 12/28/22 17:19> Patient Disposition: Home, Self-Care <MARIELLE Ruiz - Last Filed: 12/28/22 17:19> Instructions: Muscle Spasm (ED), Shoulder Pain (ED) <MARIELLE Ruiz - Last Filed: 12/28/22 17:19> Additional Instructions: Your x-rays of your left shoulder was normal today. Your neck x-ray revealed C5-6 mild anterior osteophyte formation. Please take prescribed medications as directed. Please be advised that MUSCLE RELAXERS CAN CAUSE DROWSINESS AND DIZZINESS. Do not drink or drive while taking this medication. Follow-up with your primary care physician. If your symptoms do not improve in next week, he may want to follow-up with [facility] as there may be a tendon involvement injury in her left shoulder. Any new or worsening symptoms occur please return for re-evaluation. <MARIELLE Ruiz - Last Filed: 12/28/22 17:19> Prescriptions: New acetaminophen [Tylenol] 325 mg capsule 650 mg PO Q6H PRN (Reason: pain) Qty: 30 0RF cyclobenzaprine 5 mg tablet 5 mg PO BEDTIME PRN (Reason: muscle spasm) Qty: 5 0RF No Action atorvastatin 20 mg tablet 1 tab PO BEDTIME cetirizine 10 mg tablet 1 tab PO DAILY famotidine 40 mg tablet 1 tab PO DAILY cyclobenzaprine 5 mg tablet 1 tab PO TID PRN (Reason: Pain) ibuprofen 600 mg tablet 600 mg PO Q6H Qty: 14 0RF <MARIELLE Ruiz - Last Filed: 12/28/22 17:19> Referrals: [facility] [Provider Group] <MARIELLE Ruiz - Last Filed: 12/28/22 17:19> Interventions: ED Discharge Assessment Last Done: 12/28/22 15:30 <MARIELLE Ruiz - Last Filed: 12/28/22 17:19> Discharge Date/Time: 12/28/22 15:35 <MARIELLE Ruiz - Last Filed: 12/28/22 17:19>
[2022-12-28 13:07] VITALS: BP 168/83; PULSE 76; RESP 18; TEMP 36.4; O2SAT 96
[2022-12-28] MEDS: Ketorolac Tromethamine 30 MG/ML VIAL IM (14:25)
[2022-12-28] MEDS: Cyclobenzaprine HCl 5 MG TABLET PO (14:26)
== END 2022-12-28 15:35 | disposition home or self-care (01) ==
PROVIDERS: Emergency Provider Emergency Medicine Emergency Medical Services
DX: M25.512 Pain in left shoulder (principal); M62.838 Other muscle spasm; E78.00 Pure hypercholesterolemia, unspecified; Z79.02 Long term (current) use of antithrombotics/antiplatelets
CPT/HCPCS: 72040; 73030; 96372; 99283; 99284; J1885

== ENCOUNTER 2023-03-05 07:14 | Outpatient (REF) | payer MEDICARE, SELFPAY ==
[2023-03-05 07:34] LABS: MANUAL DIFF FLAG NO
[2023-03-05 07:41] LABS: Basophils Percent Auto 0.5 % (0-2); Eosinophils Absolute Auto 0.1 X10*3/uL (0.0-0.4); Eosinophils Percent Auto 1.7 % (0-4); Hematocrit 43.3 % (37.0-47.0); Hemoglobin 14.3 g/dl (12.0-16.0); Imm Gran Abs Auto 0.01 X10*3/uL (0.00-0.03); Imm Gran Pct Auto 0.2 % (0.0-0.4); Lymphocytes Absolute Auto 2.2 X10*3/uL (1.2-4.9); Lymphocytes Percent Auto 37.5 % (20-40); Mean Corpuscular Hemoglobin 32.4 pg (27.0-33.0); Mean Corpuscular Volume 98.2 fL (80.0-98.0); Mean Platelet Volume 10.7 fL (9.4-12.3); Monocytes Absolute Auto 0.5 X10*3/uL (0.1-1.2); Neutrophils Percent Auto 52.1 % (45-73); Platelet Count 215 X10*3/uL (160-400); Red Blood Count 4.41 X10*6/uL (4.20-5.50); Red Cell Distribution Width 13.1 % (11.0-16.0); White Blood Count 5.8 X10*3/uL (4.8-10.8)
[2023-03-05 08:21] LABS: Alanine Aminotransferase 12 U/L (0-31); Albumin Level 4.1 g/dL (3.5-5.0); Alkaline Phosphatase 78 U/L (39-117); Anion Gap 12 (12-20); Aspartate Amino Transferase 18 U/L (5-31); Bilirubin Total 0.9 mg/dL (0.0-1.0); Blood Urea Nitrogen 15 mg/dL (9-16); Carbon Dioxide 26 mmol/L (22-29); Chloride 110 mmol/L (96-108); Cholesterol 151 mg/dL; Estimated Glomerular Filt Rate > 60; Glucose Random 96 mg/dL (60-115); HDL Cholesterol 54 mg/dL; LDL Cholesterol Calculated 79 mg/dl; Potassium 4.5 mmol/L (3.3-5.1); Sodium 143 mmol/L (135-145); Total Protein 6.8 g/dL (6.5-8.0); Triglycerides 92 mg/dL
== END 2023-03-05 07:15 | disposition home or self-care (01) ==
LOC: HO.LAB 07:14
PROVIDERS: PCP Internal Medicine; Visit Provider Internal Medicine
DX: E78.00 Pure hypercholesterolemia, unspecified (principal); G47.33 Obstructive sleep apnea (adult) (pediatric); H93.13 Tinnitus, bilateral; I10 Essential (primary) hypertension
CPT/HCPCS: 36415; 80053; 80061; 84443; 85025

== ENCOUNTER 2023-04-19 15:00 | Outpatient (REF) | payer MEDICARE, SELFPAY ==
[2023-04-19 18:52] LABS: Folate 9.5 ng/mL (> or = 4.0); Vitamin B12 367 pg/mL (200-900)
[2023-04-22 19:17] LABS: Transglutaminase Ab IgG <1.0 U/mL; Transglutaminase IgA <1.0 U/mL
[2023-04-25 12:53] LABS: Vitamin D 25-OH, D2 <4 ng/mL; Vitamin D 25-OH, D3 23 ng/mL; Vitamin D 25-OH, Total 23 ng/mL (30-100)
== END 2023-04-19 15:01 | disposition home or self-care (01) ==
LOC: HO.LAB 15:00
PROVIDERS: PCP Internal Medicine; Visit Provider Nurse Practitioner Family
DX: R10.12 Left upper quadrant pain (principal); K63.89 Other specified diseases of intestine; R19.7 Diarrhea, unspecified; K59.04 Chronic idiopathic constipation; E78.00 Pure hypercholesterolemia, unspecified; E55.9 Vitamin D deficiency, unspecified
CPT/HCPCS: 36415; 82306; 82607; 82746; 86364; 99202

== ENCOUNTER 2023-04-19 15:00 | Outpatient (AMB) | payer MEDICARE, SELFPAY ==
--- NOTE | 2023-04-19 15:02 | A.OFFVIS_ITS ---
Intake Vital Signs 04/19/23 15:03 Height 5 ft 3 in Weight 263 lb BMI 46.6 Blood Pressure Location Lt brachial Position Sitting Intake Visit Reasons: Abdominal pain Intake Note: New consult for abdominal pain., acid reflex, Patient cc: abdominal pain/bloating, constipation, pressing on her rectum ??? hemorrhoids. 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 Patient previously seen GI in [place], however due to her 's illness patient wants to be closer to home. Patient states that her needs 22/04 care. Patient was diagnosed with epiploic appendagitis and reports to her colonoscopy in 2019. The patient was told that she was told that she has polyps, however unsure of what kind or when she needs to return for screening. Patient reports left upper and left lower quadrant pain, constipation and rectal pain. Patient denies melena, hematochezia, unintentional weight loss or ribbon like stools. Patient reports occasional acid reflux with dyspepsia, without dysphagia or odynophagia. Patient denies any nausea or vomiting. [facility] Medical History Hypercholesteremia Surgical History Hx of hysterectomy Hx of knee surgery Family History Father Stomach cancer Paternal Grandfather Esophageal cancer Brother Diabetes Social History Household Members: Spouse Alcohol intake: never Patient Tobacco Use Status: Never used Tobacco Review of Systems Const Denies weight gain and Denies weight loss ENT Reports no additional complaints, Denies dysphagia and Denies odynophagia Card Reports no additional complaints Resp Reports no additional complaints GI Reports abdominal pain (Epigastric), Denies belching, Denies melena, Reports bloating, Denies change in bowel habits, Denies dysphagia, Denies excessive flatus, Reports dyspepsia, Reports heartburn, Denies diarrhea, Denies loose stools, Denies nausea, Denies odynophagia and Denies vomiting Reports no additional complaints Musc Reports no additional complaints Neuro Reports no additional complaints Psych Reports no additional complaints Endo Reports no additional complaints Physical Exam Vital Signs: BMI result Body Mass Index 46.6 Const General: healthy appearing, no acute distress and well developed Nutritional Appearance: obese Orientation/consciousness: patient oriented x3 HEENT Head: Yes normal to inspection, Yes normocephalic and Yes atraumatic Face and sinus: Yes normal facial exam Mouth: Normal oral and palatal mucosa present Throat: Yes posterior oropharynx normal, Yes tonsils normal and Yes uvula midline Eyes General: appearance normal, both eyes and all related structures Neck Neck: Yes normal visual inspection, Yes full ROM and Yes trachea midline Thyroid: Thyroid normal Resp Effort & Inspection: normal respiratory effort, able to speak in complete sentences, no tracheal deviation and symmetric chest movement Auscultation: clear to auscultation bilaterally Cardio Jugular venous distension: no JVD Rate: regular rate Heart sounds: S1 normal heart sound present, S2 normal heart sound present, no gallops and no murmurs GI Inspection: Yes normal to inspection and No distended Palpation (GI): Soft to palpation, not firm, nontender and No hepatosplenomegaly present Auscultation: normal bowel sounds General: Yes no CVA tenderness Back/Spine/Pelvis Back: no CVA tenderness Skin General skin exam: elasticity normal, turgor normal and dry skin Neuro General: patient oriented x3 Psych Appearance: grossly normal Mental Status: mental status grossly normal Speech and movement: Normal speech and movement present Affect: normal affect Attitude: cooperative Thought process: Normal thought process present Thought content: Normal thought content present Insight: Good insight present (Psych) Judgement: Good judgement present (Psych) Assessment & Plan Assessment & Plan (1) Epiploic appendagitis: Code(s): K63.89 - Other specified diseases of intestine Plan: Will order MRI. Patient keeps having abdominal pain. Will get records from her colonoscopy and last GI visit (2) Abdominal pain: Code(s): R10.9 - Unspecified abdominal pain Qualifiers: Abdominal location: left upper quadrant Qualified Code(s): R10.12 - Left upper quadrant pain Plan: Left upper and left lower quadrant pain most likely related to constipation. Patient does not have nausea or vomiting. Will send patient for MRI. (3) Chronic idiopathic constipation: Code(s): K59.04 - Chronic idiopathic constipation Plan: Start Senokot and MiraLax. Patient was also encouraged to increase fluid intake and activity to promote better bowel motility. I will see patient in 2 months, sooner on as needed basis. Patient is agreeable to this plan and verbalizes understanding of instructions. She was given the opportunity to ask questions and all questions answered Thank you for allowing me to participate in her care Orders: Orders Transglutaminase Ab IgG 04/19/23 R10.9 - Unspecified abdominal pain Transglutaminase IgA 04/19/23 R10.9 - Unspecified abdominal pain Vitamin B12 and Folate 04/19/23 R19.7 - Diarrhea, unspecified Vitamin D 25-OH (D2 and D3) 04/19/23 E55.9 - Vitamin D deficiency, unspecified MR abdomen wo/w con 04/19/23 K63.89 - Other specified diseases of intestine, R10.9 - Unspecified abdominal pain Medications: New sennosides (Natural Senna Laxative) 17.2 mg (2 x 8.6 mg) PO BEDTIME 180 tabs 3RF constipation K59.00 - Constipation, unspecified polyethylene glycol 3350 (Miralax) 17 grams PO DAILY 510 grams 2RF omeprazole 20 mg PO DAILY 30 caps 3RF K21.9 - Gastro-esophageal reflux disease without esophagitis Coding Level of Care Code New Pt Level 4 (58554) Diagnoses Epiploic appendagitis K63.89 Abdominal pain R10.12 Abdominal location: left upper quadrant Chronic idiopathic constipation K59.04 Time Spent (min) 45 Comment 30 minutes spent with patient and additional 15 minutes spent reviewing her records
[2023-04-19 15:03] VITALS: BMI 46.6
== END 2023-04-19 16:42 | disposition home or self-care (01) ==
PROVIDERS: PCP Internal Medicine; Visit Provider Nurse Practitioner Family
DX: K63.89 Other specified diseases of intestine (principal); R10.12 Left upper quadrant pain; K59.04 Chronic idiopathic constipation
CPT/HCPCS: 99204

== ENCOUNTER 2023-04-30 15:08 | Outpatient (AMB) | payer MEDICARE, SELFPAY ==
[2023-04-30 15:19] VITALS: BP 160/76; PULSE 77; BMI 46.4
--- NOTE | 2023-04-30 15:19 | A.OFFVIS_ITS ---
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 Patient keeps having abdominal pain.? Will get records from her colonoscopy and last GI visit (2) Abdominal pain: ?Code(s): R10.9 - Unspecified abdominal pain ?Qualifiers: ?Abdominal location:?left upper quadrant? Qualified Code(s):?R10.12 - Left upper quadrant pain ?Plan: Left upper and left lower quadrant pain most likely related to constipation.? Patient does not have nausea or vomiting.? Will send patient for MRI. (3) Chronic idiopathic constipation: ?Code(s): K59.04 - Chronic idiopathic constipation ?Plan: Start Senokot and MiraLax.? Patient was also encouraged to increase fluid intake and activity to promote better bowel motility.? I will see patient in 2 months, sooner on as needed basis.? Patient is agreeable to this plan and verbalizes understanding of instructions.? She was given the opportunity to ask questions and all questions answered TODAY'S VISIT Patient requested to be seen earlier than planned visit. Patient continues to have left lower quadrant pain and feeling like she needs to have a bowel movement and I able to go. Patient reports to have abdominal cramping not really empty her bowels better despite taking MiraLax and senna. Patient denies melena, hematochezia, unintentional weight loss or ribbon like stools. Awaiting records from patient GI specialist from [place]. Patient reports that omeprazole is working and she has no acid reflux. Patient denies dyspepsia, dysphagia or odynophagia. Lab results discussed with patient. Patient was found to have a low vitamin-D level and she started taking vitamin-D supplement. Patient denies any other GI concerning symptoms today. PFSH Medical History Hypercholesteremia Surgical History Hx of hysterectomy Hx of knee surgery Family History Father Stomach cancer Paternal Grandfather Esophageal cancer Brother Diabetes Social History Household Members: Spouse Alcohol intake: never Patient Tobacco Use Status: Never used Tobacco Review of Systems Const Denies weight gain and Denies weight loss ENT Reports no additional complaints, Denies dysphagia and Denies odynophagia Card Reports no additional complaints Resp Reports no additional complaints GI Reports abdominal pain (LLQ), Denies belching, Denies melena, Reports bloating, Reports constipation, Denies dysphagia, Denies excessive flatus, Denies dyspepsia, Denies heartburn, Denies diarrhea, Denies loose stools, Denies nausea, Denies odynophagia and Denies vomiting Reports no additional complaints Musc Reports no additional complaints Neuro Reports no additional complaints Psych Reports no additional complaints Endo Reports no additional complaints Physical Exam Vital Signs: Last Vital Signs Pulse 77 04/30/23 15:19 BP 160/76 H 04/30/23 15:19 BMI result Body Mass Index 46.4 Const General: healthy appearing, no acute distress and well developed Nutritional Appearance: obese Orientation/consciousness: patient oriented x3 HEENT Head: Yes normal to inspection, Yes normocephalic and Yes atraumatic Face and sinus: Yes normal facial exam Mouth: Normal oral and palatal mucosa present Throat: Yes posterior oropharynx normal, Yes tonsils normal and Yes uvula midline Eyes General: appearance normal, both eyes and all related structures Neck Neck: Yes normal visual inspection, Yes full ROM and Yes trachea midline Thyroid: Thyroid normal Resp Effort & Inspection: normal respiratory effort, able to speak in complete sentences, no tracheal deviation and symmetric chest movement Auscultation: clear to auscultation bilaterally Cardio Rate: regular rate Heart sounds: S1 normal heart sound present and S2 normal heart sound present GI Inspection: Yes normal to inspection, No distended and Yes obesity Palpation (GI): Soft to palpation, not firm, nontender and No hepatosplenomegaly present Auscultation: normal bowel sounds General: Yes no CVA tenderness Back/Spine/Pelvis Back: no CVA tenderness Skin General skin exam: elasticity normal, turgor normal and dry skin Neuro General: patient oriented x3 Psych Appearance: grossly normal Mental Status: mental status grossly normal Speech and movement: Normal speech and movement present Results Reviewed Results Reviewed: Laboratory Tests 04/19/23 04/19/23 04/19/23 16:16 16:16 16:16 Vitamin B12 367 25-OH Vitamin D Total 23 L Folate 9.5 Tiss Transglutamin IgG <1.0 Tiss Transglutamin IgA <1.0 Assessment & Plan Assessment & Plan (1) Abdominal pain: Code(s): R10.9 - Unspecified abdominal pain Qualifiers: Abdominal location: left lower quadrant Qualified Code(s): R10.32 - Left lower quadrant pain Plan: Left lower quadrant abdominal discomfort most likely related to patient not being able to empty completely. Possible gas trapping pain. Discussed with patient changing her diet (2) Chronic idiopathic constipation: Code(s): K59.04 - Chronic idiopathic constipation Plan: Patient reports that senna and MiraLax not working for her. Patient does not feel like she empties her bowels completely. Will start her on Linzess 145 mcg daily. Patient was also encouraged to increase fluid intake and activity to promote better bowel motility. (3) GERD (gastroesophageal reflux disease): Code(s): K21.9 - Gastro-esophageal reflux disease without esophagitis Qualifiers: Esophagitis presence: esophagitis presence not specified Qualified Code(s): K21.9 - Gastro-esophageal reflux disease without esophagitis Plan: Continue omeprazole daily. Patient was encouraged to avoid dietary triggers in late night snacking. Staying upright for minimal 3 hours after meals discussed with patient. I will see patient in 6 weeks, sooner on as needed basis. Patient is agreeable to this plan and verbalizes understanding of instructions. She was given the opportunity to ask questions and all questions answered. Thank you for allowing me to participate in her care Medications: New linaclotide (Linzess) 145 mcg PO DAILY 30 caps 2RF Coding Level of Care Code Est Pt Level 4 (32316) Diagnoses Abdominal pain R10.32 Abdominal location: left lower quadrant Chronic idiopathic constipation K59.04 GERD (gastroesophageal reflux disease) K21.9 Esophagitis presence: esophagitis presence not specified Time Spent (min) 35 Comment 20 minutes spent with patient and additional 15 minutes spent reviewing her
== END 2023-04-30 15:44 | disposition home or self-care (01) ==
PROVIDERS: PCP Internal Medicine; Visit Provider Nurse Practitioner Family
DX: R10.32 Left lower quadrant pain (principal); K59.04 Chronic idiopathic constipation; K21.9 Gastro-esophageal reflux disease without esophagitis
CPT/HCPCS: 99214

== ENCOUNTER → 2023-04-30 15:08 | Outpatient (BNVA) | payer MEDICARE, SELFPAY | PROVIDERS: PCP Internal Medicine; Visit Provider Nurse Practitioner Family | DX: K59.04 Chronic idiopathic constipation (principal); K21.9 Gastro-esophageal reflux disease without esophagitis; R10.32 Left lower quadrant pain | CPT/HCPCS: 99212 ==

== ENCOUNTER 2023-06-17 11:50 | Outpatient (REF) | payer MEDICARE, SELFPAY | END 2023-06-17 11:51 | disposition home or self-care (01) | LOC: HO.MAMMO 11:50 | PROVIDERS: PCP Internal Medicine; Visit Provider Internal Medicine | DX: Z12.31 Encounter for screening mammogram for malignant neoplasm of breast (principal); M17.11 Unilateral primary osteoarthritis, right knee | CPT/HCPCS: 20610; 77063; 77067; 99212; J1100 ==

== ENCOUNTER → 2023-06-17 12:30 | Outpatient (BNV) | payer MEDICARE, SELFPAY | PROVIDERS: PCP Internal Medicine; Visit Provider Radiology Diagnostic Radiology | DX: Z12.31 Encounter for screening mammogram for malignant neoplasm of breast (principal) | CPT/HCPCS: 77063; 77067 ==

== ENCOUNTER 2023-06-17 13:04 | Outpatient (AMB) | payer MEDICARE, SELFPAY ==
--- NOTE | 2023-06-17 13:14 | MHC.OFFVIS ---
Intake Intake Visit Reasons: OV - Right Knee OA - Last Injection 09/13/22 Intake Note: The patient agreed to use of a medical territory manager during this encounter. Scribed for Dr. Osmel Ortega by Shala Calero medical territory manager, on 06/17/2023 at 1:45 npm EST. Giraldo is a 73 year old female who presents today for a follow up of her right knee OA. Last Injection was 09/13/2022. This injection was very helpful and she would like to repeat injection today. She would like to talk about knee replacement but was told by Dr. Sahu she needs to loose weight prior to this discussion. States she is having slight pain in right knee. Allergies No Known Allergies [No Known Allergies*] Allergy (Verified 06/24/23 09:55) HPI OV - Right Knee OA - Last Injection 09/13/22 HPI Details This is a 73 yo with right knee OA. She has had injections in the past. Is possibly interested in TKA. She has a history of right knee . She describes pain with stairs and cannot walk for more than 5 minutes without pain. She feels the quality of her life is diminished. Her BMI is 46 PFSH Medical History Osteoarthritis of right knee Hypercholesteremia Surgical History Hx of knee surgery Hx of hysterectomy Family History Father Stomach cancer Paternal Grandfather Esophageal cancer Brother Diabetes Social History Household Members: Spouse Alcohol intake: never Patient Tobacco Use Status: Never used Tobacco Physical Exam Const General: cooperative, healthy appearing, no acute distress, well developed and alert HEENT Head: Yes normal to inspection, Yes normocephalic and Yes atraumatic Mouth: moist mucous membranes Eyes General: appearance normal, both eyes and all related structures EOM: EOMs intact bilaterally Chest Other: no audible wheezing. Resp Other: No audible wheezing Effort & Inspection: normal respiratory effort Cardio Other: Radial pulse palpable with no rythmic abnormalities Back/Spine/Pelvis Cervical Spine: normal cervical lordosis Skin General skin exam: no rashes or lesions noted Neuro General: no focal motor deficits Extrem Other: TTP medial joitn line + antalgic gait Psych Appearance: grossly normal and well kempt Mental Status: mental status grossly normal Speech and movement: Normal speech and movement present Affect: normal affect Attitude: cooperative Office Procedures Joint Injection/Drain Joint Injection/Drain Details: Injected 1 mL of Decadron and 3 mL 1% lidocaine and 3 mL of 0.25% Marcaine. Site was prepped using aseptic technique. Patient tolerated the procedure well. Primary Site: right knee Approach Used: anterolateral Coding - Large joint Procedure code (CPT) selection complete Results Reviewed Results Reviewed: 06/17/23 13:13 BUPivacaine MPF 0.25 % [Sensorcaine-MPF 0.25% 10 ML] 10 ml .ROUTE .STK-MED ONE Lidocaine HCl 2 % MPF [Xylocaine 2 % MPF] 5 ml .ROUTE .STK-MED ONE dexAMETHasone sod phosphate [Decadron] 4 mg .ROUTE .STK-MED ONE I personally reviewed relevant radiographs. Severe degenerative changes, medial compartment, both knees, with moderate jane-articular spurring. 2. Mild suprapatellar joint effusion with degenerative changes, patellofemoral compartment, right knee. No acute fracture or loose body seen. Assessment & Plan Assessment & Plan (1) Osteoarthritis of right knee: Code(s): M17.11 - Unilateral primary osteoarthritis, right knee Plan: Right knee OA. injected her right knee and discussed surgical options. She would benefit from weight loss although arthroplasty would benefit her regardless. I discussed the risks benefits and alternatives including but not limited to the risk of pain, infection, stiffness, need for further surgery as well as potential medical complications such as blood clots, pulmonary embolism and cardiac complications. Her family was present. I injected her knee and will see her in 3 months. Coding Level of Care Code Est Pt Level 4 (94743) Diagnoses Osteoarthritis of right knee M17.11 CPT Codes Coding - Large joint: 82961 - Large joint ([id number])
== END 2023-06-17 13:59 | disposition home or self-care (01) ==
PROVIDERS: PCP Internal Medicine; Visit Provider Orthopaedic Surgery
DX: M17.11 Unilateral primary osteoarthritis, right knee (principal)
CPT/HCPCS: 20610; 99214

== ENCOUNTER 2023-06-18 09:30 | Outpatient (REF) | payer MEDICARE, SELFPAY ==
--- NOTE | ~2023-06-18 | MR_ITS ---
STUDY PERFORMED: MRA of the abdomen without and with contrast Vasu Hopkins MD HISTORY: Abdominal pain DESCRIPTION: Routine abdominal MRA protocol without and with contrast was performed. 20 mL of Gadavist was administered. The images were reviewed and postprocessed on a dedicated 3-D workstation. COMPARISON: CT from 09/01/2022 FINDINGS: Vascular: 1. Abdominal aorta: Normal caliber and widely patent 2. Celiac and Mesenteric Arteries: Celiac artery, superior mesenteric artery and inferior mesenteric artery are widely patent and normal in caliber 3. Renal Arteries: Single bilateral renal arteries which are widely patent 4. Inferior Vena Cava: Widely patent 5. Iliac venous system: Widely patent 6. Re-mesenteric venous system: Patent Nonvascular: There is a 1.0 cm simple cyst in the left lobe of liver. There are subcentimeter T2 bright simple cyst in the bilateral kidneys. No follow-up indicated. Solid abdominal organs are otherwise unremarkable. No free fluid seen in the abdomen. MR/MR angio abdomen wo/w con IMPRESSION: Normal MRA of the abdomen.
[2023-06-18] MEDS: gadobutroL 10 ML VIAL IVPUSH ×2 (10:24→10:25)
== END 2023-06-18 09:31 | disposition home or self-care (01) ==
LOC: HO.MRI 09:30
PROVIDERS: PCP Internal Medicine; Visit Provider Nurse Practitioner Family
DX: K63.89 Other specified diseases of intestine (principal); R10.9 Unspecified abdominal pain
CPT/HCPCS: 74185; A9585

== ENCOUNTER 2023-06-24 09:25 | Outpatient (AMB) | payer MEDICARE, SELFPAY ==
--- NOTE | 2023-06-24 09:44 | MHC.OFFVIS ---
Intake Vital Signs 06/24/23 09:46 Height 5 ft 3 in Weight 264 lb 15.93 oz BMI 46.9 BP 138/63 Blood Pressure Location Lt brachial Position Sitting Pulse 71 Intake Visit Reasons: Follow up 2 months Intake Note: Patient returns to in office follow up today in 2 months follow up of CIC and MRA. CC: Patient reports she could not get the Linzess because it costs too much. She states that senna has been helping her with constipation. Patient c/o LUQ and LLQ abdominal pain. Denies other GI symptoms today. 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 Possible gas trapping pain. Discussed with patient changing her diet Chronic idiopathic constipation Patient reports that senna and MiraLax not working for her. Patient does not feel like she empties her bowels completely. Will start her on Linzess 145 mcg daily. Patient was also encouraged to increase fluid intake and activity to promote better bowel motility. GERD (gastroesophageal reflux disease) Continue omeprazole daily. Patient was encouraged to avoid dietary triggers in late night snacking. Staying upright for minimal 3 hours after meals discussed with patient. I will see patient in 6 weeks, sooner on as needed basis. Patient is agreeable to this plan and verbalizes understanding of instructions. She was given the opportunity to ask questions and all questions answered. TODAY'S VISIT Patient is here today for follow-up and to discuss MRI results. Patient reports that she is feeling well except for occasional left lower quadrant discomfort. Patient was unable to purchase Linzess as it was too expensive. Patient states that she is taking Senokot and states that she is moving her bowels better. Occasionally patient will take MiraLax as well. Patient reports that her symptoms of acid reflux are suppressed with omeprazole. Patient is also taking famotidine on as needed basis at bedtime. Patient denies any nausea or vomiting. MRI results discussed with patient. No acute findings seen. Patient will try to get of results from last colonoscopy from [facility]. Patient denies any other GI concerning symptoms. Reports to have a good appetite. Denies melena, hematochezia, unintentional weight loss or ribbon like stools. Denies any dyspepsia, dysphagia or odynophagia. [facility] Medical History Osteoarthritis of right knee Hypercholesteremia Surgical History Hx of knee surgery Hx of hysterectomy Family History Father Stomach cancer Paternal Grandfather Esophageal cancer Brother Diabetes Social History Household Members: Spouse Alcohol intake: never Patient Tobacco Use Status: Never used Tobacco Review of Systems Const Denies weight gain and Denies weight loss ENT Reports no additional complaints, Denies dysphagia and Denies odynophagia Card Reports no additional complaints Resp Reports no additional complaints GI Reports abdominal pain (LLQ), Denies belching, Denies melena, Denies bloating, Denies change in bowel habits, Denies dysphagia, Denies excessive flatus, Denies dyspepsia, Denies heartburn, Denies diarrhea, Denies loose stools, Denies nausea, Denies odynophagia and Denies vomiting Reports no additional complaints Musc Reports no additional complaints Neuro Reports no additional complaints Psych Reports no additional complaints Endo Reports no additional complaints Physical Exam Vital Signs: Last Vital Signs Pulse 71 06/24/23 09:46 BP 138/63 06/24/23 09:46 BMI result Body Mass Index 46.9 Const General: healthy appearing, no acute distress and well developed Nutritional Appearance: obese Orientation/consciousness: patient oriented x3 HEENT Head: Yes normal to inspection, Yes normocephalic and Yes atraumatic Face and sinus: Yes normal facial exam Mouth: Normal oral and palatal mucosa present Throat: Yes posterior oropharynx normal, Yes tonsils normal and Yes uvula midline Eyes General: appearance normal, both eyes and all related structures Neck Neck: Yes normal visual inspection, Yes full ROM and Yes trachea midline Thyroid: Thyroid normal Resp Effort & Inspection: normal respiratory effort, able to speak in complete sentences, no tracheal deviation and symmetric chest movement Auscultation: clear to auscultation bilaterally Cardio Rate: regular rate Heart sounds: S1 normal heart sound present and S2 normal heart sound present GI Inspection: Yes normal to inspection, No distended and Yes obesity Palpation (GI): Soft to palpation, not firm, nontender and No hepatosplenomegaly present Auscultation: normal bowel sounds General: Yes no CVA tenderness Back/Spine/Pelvis Back: no CVA tenderness Skin General skin exam: elasticity normal, turgor normal and dry skin Neuro General: patient oriented x3 Psych Appearance: grossly normal Mental Status: mental status grossly normal Speech and movement: Normal speech and movement present Results Reviewed Results Reviewed: MRI OF ABDOMEN 06/18/2023 FINDINGS: Vascular: 1. Abdominal aorta: Normal caliber and widely patent 2. Celiac and Mesenteric Arteries: Celiac artery, superior mesenteric artery and inferior mesenteric artery are widely patent and normal in caliber 3. Renal Arteries: Single bilateral renal arteries which are widely patent 4. Inferior Vena Cava: Widely patent 5. Iliac venous system: Widely patent 6. Re-mesenteric venous system: Patent Nonvascular: There is a 1.0 cm simple cyst in the left lobe of liver. There are subcentimeter T2 bright simple cyst in the bilateral kidneys. No follow-up indicated. Solid abdominal organs are otherwise unremarkable. No free fluid seen in the abdomen. Assessment & Plan Assessment & Plan (1) Abdominal pain: Code(s): R10.9 - Unspecified abdominal pain Qualifiers: Abdominal location: left lower quadrant Qualified Code(s): R10.32 - Left lower quadrant pain Plan: Left lower quadrant discomfort most likely related to patient being constipated. She is taking Senokot, reports to be moving her bowels better, not sure if she is emptying completely. I will add Colace. MRI normal (2) Chronic idiopathic constipation: Code(s): K59.04 - Chronic idiopathic constipation Plan: Continue Senokot and increase fluid intake and activity to promote better bowel motility. Adding Colace. (3) GERD (gastroesophageal reflux disease): Code(s): K21.9 - Gastro-esophageal reflux disease without esophagitis Qualifiers: Esophagitis presence: esophagitis presence not specified Qualified Code(s): K21.9 - Gastro-esophageal reflux disease without esophagitis Plan: Continue taking omeprazole in the morning and famotidine at bedtime. Patient was also encouraged to avoid dietary triggers in late night snacking. Staying upright for minimal 3 hours after meals discussed with patient. I will see patient in 3 months. Please try to get colonoscopy results from [facility]. We will discuss patient going for colonoscopy and possible upper endoscopy. Patient is agreeable to this plan and verbalizes understanding of instructions. She was given the opportunity to ask questions and all questions answered. Thank you for allowing me to participate in her care Medications: New docusate sodium 100 mg PO BEDTIME 90 caps 3RF K59.00 - Constipation, unspecified Discontinued linaclotide (Linzess) Discontinued Reason: Insurance Denied 145 mcg PO DAILY 30 caps 2RF Coding Level of Care Code Est Pt Level 3 (85217) Diagnoses Left lower quadrant abdominal pain R10.32 Abdominal location: left lower quadrant Chronic idiopathic constipation K59.04 Gastroesophageal reflux disease, unspecified whether esophagitis present K21.9 Esophagitis presence: esophagitis presence not specified Time Spent (min) 30 Comment 20 minutes spent with patient and additional 10 minutes spent reviewing her records
[2023-06-24 09:46] VITALS: BP 138/63; PULSE 71; BMI 46.9
== END 2023-06-24 11:24 | disposition home or self-care (01) ==
PROVIDERS: PCP Internal Medicine; Visit Provider Nurse Practitioner Family
DX: R10.32 Left lower quadrant pain (principal); K59.04 Chronic idiopathic constipation; K21.9 Gastro-esophageal reflux disease without esophagitis
CPT/HCPCS: 99213

== ENCOUNTER → 2023-06-24 09:25 | Outpatient (BNVA) | payer MEDICARE, SELFPAY | PROVIDERS: PCP Internal Medicine; Visit Provider Nurse Practitioner Family | DX: K59.04 Chronic idiopathic constipation (principal); K21.9 Gastro-esophageal reflux disease without esophagitis; R10.32 Left lower quadrant pain | CPT/HCPCS: 99212 ==

== ENCOUNTER 2023-10-01 14:30 | Outpatient (AMB) | payer MEDICARE, SELFPAY ==
--- NOTE | 2023-10-01 14:51 | A.OFFVIS_ITS ---
Intake Vital Signs 10/01/23 14:53 Height 5 ft 3 in Weight 264 lb 8.875 oz BMI 46.9 BP 144/76 H Blood Pressure Location Lt brachial Position Sitting Pulse 85 Intake Visit Reasons: 3 month follow up Intake Note: Kristal presents in the office as a 3 month follow up. CC: She states she only gets the LUQ pains and when she is full she gets it worse. Prism Inspector Required: No Allergies No Known Allergies [No Known Allergies*] Allergy (Verified 10/01/23 14:54) HPI 3 month follow up HPI Details LAST VISIT Abdominal pain Left lower quadrant discomfort most likely related to patient being constipated. She is taking Senokot, reports to be moving her bowels better, not sure if she is emptying completely. I will add Colace. MRI normal Chronic idiopathic constipation Continue Senokot and increase fluid intake and activity to promote better bowel motility. Adding Colace. GERD (gastroesophageal reflux disease) Continue taking omeprazole in the morning and famotidine at bedtime. Patient was also encouraged to avoid dietary triggers in late night snacking. Staying upright for minimal 3 hours after meals discussed with patient. I will see patient in 3 months. Please try to get colonoscopy results from [facility]. We will discuss patient going for colonoscopy and possible upper endoscopy. Patient is agreeable to this plan and verbalizes understanding of instructions. She was given the opportunity to ask questions and all questions answered. ? Thank you for allowing me to participate in her care Plan Medications New docusate sodium 100 mg PO BEDTIME 90 caps 3RF K59.00 Discontinued linaclotide (Linzess) Discontinued Reason: Insurance Denied 145 mcg PO DAILY 30 caps 2RF TODAY'S VISIT Patient is here today for follow-up. Patient reports that she has been doing well, able to move her bowels better. Patient is taking Senokot and Colace. Feels that she empties her bowels well. Occasional left lower quadrant pain. Patient denies melena, hematochezia, unintentional weight loss or ribbon like stools. Patient denies any dyspepsia, dysphagia or odynophagia. Patient denies any other GI concerning symptoms. [facility] Medical History Osteoarthritis of right knee Hypercholesteremia Surgical History History of esophagogastroduodenoscopy (EGD) Hx of colonoscopy Hx of knee surgery Hx of hysterectomy Family History Father Stomach cancer Paternal Grandfather Esophageal cancer Brother Diabetes Social History Household Members: Spouse Alcohol intake: never Patient Tobacco Use Status: Never used Tobacco Review of Systems Const Denies weight gain and Denies weight loss ENT Reports no additional complaints, Denies dysphagia and Denies odynophagia Card Reports no additional complaints Resp Reports no additional complaints GI Denies abdominal pain, Denies belching, Denies melena, Denies bloating, Denies change in bowel habits, Denies dysphagia, Denies excessive flatus, Denies dyspepsia, Denies heartburn, Denies diarrhea, Denies loose stools, Denies nausea, Denies odynophagia and Denies vomiting Musc Reports no additional complaints Neuro Reports no additional complaints Psych Reports no additional complaints Endo Reports no additional complaints Physical Exam Vital Signs: Last Vital Signs Pulse 85 10/01/23 14:53 BP 144/76 H 10/01/23 14:53 BMI result Body Mass Index 46.9 Const General: healthy appearing, no acute distress and well developed Nutritional Appearance: obese Orientation/consciousness: patient oriented x3 HEENT Head: Yes normal to inspection, Yes normocephalic and Yes atraumatic Face and sinus: Yes normal facial exam Mouth: Normal oral and palatal mucosa present Throat: Yes posterior oropharynx normal, Yes tonsils normal and Yes uvula midline Eyes General: appearance normal, both eyes and all related structures Neck Neck: Yes normal visual inspection, Yes full ROM and Yes trachea midline Thyroid: Thyroid normal Resp Effort & Inspection: normal respiratory effort, able to speak in complete sentences, no tracheal deviation and symmetric chest movement Auscultation: clear to auscultation bilaterally Cardio Rate: regular rate GI Inspection: Yes normal to inspection, No distended and Yes obesity Palpation (GI): Soft to palpation, not firm, nontender and No hepatosplenomegaly present Auscultation: normal bowel sounds General: Yes no CVA tenderness Back/Spine/Pelvis Back: no CVA tenderness Skin General skin exam: elasticity normal, turgor normal and dry skin Neuro General: patient oriented x3 Psych Appearance: grossly normal Mental Status: mental status grossly normal Assessment & Plan Assessment & Plan (1) Abdominal pain: Code(s): R10.9 - Unspecified abdominal pain Qualifiers: Abdominal location: left lower quadrant Qualified Code(s): R10.32 - Left lower quadrant pain (2) Chronic idiopathic constipation: Code(s): K59.04 - Chronic idiopathic constipation (3) GERD (gastroesophageal reflux disease): Code(s): K21.9 - Gastro-esophageal reflux disease without esophagitis Qualifiers: Esophagitis presence: esophagitis presence not specified Qualified Code(s): K21.9 - Gastro-esophageal reflux disease without esophagitis Plan Continue omeprazole in the morning and famotidine at bedtime. Discussed with patient avoiding dietary triggers. The importance of moving her bowels stressed with her. Patient can start taking MiraLax daily in addition to taking Senokot and Colace. Patient was encouraged to increase fluid intake and activity to promote better bowel motility. Patient is agreeable to this plan and verbalizes understanding of instructions. She was given the opportunity to ask questions and all questions answered. Thank you for allowing me to participate in her care Medications: New polyethylene glycol 3350 (Miralax) 17 grams PO DAILY 510 grams 2RF Coding Level of Care Code Est Pt Level 3 (73836) Diagnoses Left lower quadrant abdominal pain R10.32 Abdominal location: left lower quadrant Chronic idiopathic constipation K59.04 Gastroesophageal reflux disease, unspecified whether esophagitis present K21.9 Esophagitis presence: esophagitis presence not specified Time Spent (min) 30 Comment 20 minutes spent with patient and additional 10 minutes spent reviewing her records
[2023-10-01 14:53] VITALS: BP 144/76; PULSE 85; BMI 46.9
== END 2023-10-01 15:21 | disposition home or self-care (01) ==
PROVIDERS: PCP Internal Medicine; Visit Provider Nurse Practitioner Family
DX: R10.32 Left lower quadrant pain (principal); K59.04 Chronic idiopathic constipation; K21.9 Gastro-esophageal reflux disease without esophagitis
CPT/HCPCS: 99213

== ENCOUNTER → 2023-10-01 14:30 | Outpatient (BNVA) | payer MEDICARE, SELFPAY | PROVIDERS: PCP Internal Medicine; Visit Provider Nurse Practitioner Family | DX: R10.32 Left lower quadrant pain (principal); K59.04 Chronic idiopathic constipation; K21.9 Gastro-esophageal reflux disease without esophagitis; Z79.899 Other long term (current) drug therapy | CPT/HCPCS: 99212 ==

== ENCOUNTER 2023-11-11 11:06 | Outpatient (AMB) | payer MEDICARE, SELFPAY ==
--- NOTE | 2023-11-11 11:16 | MHC.OFFVIS ---
Intake Intake Visit Reasons: OV - Right Knee OA - Last Injection 06/17/23 Intake Note: Kristal is a 73 year old female who presents today for a follow up of her right knee OA, Last injected on 06/17/23. This injection was helpful but they have become less effective over time. She would like to repeat injection today. She also asks about getting a prescription for Diclofencc topical gel. Allergies No Known Allergies [No Known Allergies*] Allergy (Verified 11/11/23 11:17) HPI OV - Right Knee OA - Last Injection 06/17/23 HPI Details Kristal is a 73 year old woman with right knee OA, who returns with complaints of pain. She has pain with daily activity, and feels limited in her ADLs. She was last seen, and injected, on 06/17/23, with some relief. She feels the injections are becoming less effective over time, but she would like to repeat injections today. She would also like to discuss the use of topical Diclofenac. [facility] Medical History Osteoarthritis of right knee Hypercholesteremia Surgical History History of esophagogastroduodenoscopy (EGD) Hx of colonoscopy Hx of knee surgery Hx of hysterectomy Family History Father Stomach cancer Paternal Grandfather Esophageal cancer Brother Diabetes Social History Household Members: Spouse Alcohol intake: never Patient Tobacco Use Status: Never used Tobacco Review of Systems Const All systems reviewed & are unremarkable except as noted in HPI and below Physical Exam Const General: no acute distress, alert and awake Orientation/consciousness: patient oriented x3 HEENT Head: Yes normocephalic and Yes atraumatic Eyes EOM: EOMs intact bilaterally Resp Effort & Inspection: normal respiratory effort and able to speak in complete sentences Cardio Jugular venous distension: no JVD Skin General skin exam: turgor normal Rashes: no rashes Neuro General: patient oriented x3 Extrem Other: TTP medial compartment right knee + gait antalgia 5-120 deg motion stable to v/v stress trace effusion Psych Appearance: grossly normal Affect: normal affect Attitude: cooperative Office Procedures Joint Injection/Drain Joint Injection/Drain Details: Injected 1 mL of Decadron and 3 mL 1% lidocaine and 3 mL of 0.25% Marcaine. Site was prepped using aseptic technique. Patient tolerated the procedure well. Primary Site: right knee Approach Used: anterolateral Coding - Large joint Procedure code (CPT) selection complete Results Reviewed Results Reviewed: Severe degenerative changes bilateral knees Assessment & Plan Assessment & Plan (1) Osteoarthritis of right knee: Code(s): M17.11 - Unilateral primary osteoarthritis, right knee Plan: Right knee OA. Severe degenerative changes. Needs to focus on weight loss if arthroplasty considered. f/u 3 mo. Plan Prepared for Osmel Ortega MD by Lux Badillo, medical claims manager, on 11/11/23 at 11:19 AM, EST. Coding Level of Care Code Est Pt Level 3 (41490) Diagnoses Osteoarthritis of right knee M17.11 CPT Codes Coding - Large joint: 17334 - Large joint ([id number])
== END 2023-11-11 11:41 | disposition home or self-care (01) ==
PROVIDERS: PCP Internal Medicine; Visit Provider Orthopaedic Surgery
DX: M17.11 Unilateral primary osteoarthritis, right knee (principal)
CPT/HCPCS: 20610; 99213

== ENCOUNTER → 2023-11-11 11:06 | Outpatient (BNVA) | payer MEDICARE, SELFPAY | PROVIDERS: PCP Internal Medicine; Visit Provider Orthopaedic Surgery | DX: M17.11 Unilateral primary osteoarthritis, right knee (principal) | CPT/HCPCS: 20610; 99212; J0665; J1100 ==

== ENCOUNTER 2023-11-30 08:49 | Outpatient (REF) | payer MEDICARE, SELFPAY ==
[2023-11-30 10:17] LABS: Alanine Aminotransferase 8 U/L (0-31); Albumin Level 3.9 g/dL (3.5-5.0); Alkaline Phosphatase 60 U/L (39-117); Anion Gap 10 (12-20); Aspartate Amino Transferase 15 U/L (5-31); Bilirubin Total 0.4 mg/dL (0.0-1.0); Blood Urea Nitrogen 11 mg/dL (9-16); Calcium 9.5 mg/dL (8.4-10.2); Carbon Dioxide 27 mmol/L (22-29); Chloride 111 mmol/L (96-108); Cholesterol 221 mg/dL (<200); Estimated Glomerular Filt Rate > 60; Glucose Random 89 mg/dL (60-115); HDL Cholesterol 48 mg/dL (>40); LDL Cholesterol Calculated 146 mg/dL (<100); Potassium 4.1 mmol/L (3.3-5.1); Sodium 144 mmol/L (135-145); Total Protein 6.7 g/dL (6.5-8.0); Triglycerides 137 mg/dL (<150)
== END 2023-11-30 08:50 | disposition home or self-care (01) ==
LOC: HO.LAB 08:49
PROVIDERS: PCP Internal Medicine; Visit Provider Internal Medicine
DX: E78.00 Pure hypercholesterolemia, unspecified (principal); G47.33 Obstructive sleep apnea (adult) (pediatric); I10 Essential (primary) hypertension; J32.9 Chronic sinusitis, unspecified
CPT/HCPCS: 36415; 80053; 80061

== ENCOUNTER 2023-12-23 13:09 | Outpatient (AMB) | payer MEDICARE, SELFPAY ==
--- NOTE | 2023-12-23 13:13 | A.OFFVIS_ITS ---
Intake Vital Signs 12/23/23 13:22 Height 5 ft 3 in BP 131/58 L Blood Pressure Location Rt brachial Position Sitting Pulse 75 Pulse Source Pulse Oximeter Pulse Oximetry (%) 95 Oxygen Delivery Method Room Air Intake Visit Reasons: pt req appointment Intake Note: pt here for left side abdominal pain, constipation, no nausea or vomiting. Information Interpreted: non-clinical & clinical Accompanied by: Self / Same As Patient Allergies No Known Allergies [No Known Allergies*] Allergy (Verified 12/23/23 13:17) HPI pt req appointment HPI Details LAST VISIT Abdominal pain Chronic idiopathic constipation GERD (gastroesophageal reflux disease) Plan Continue omeprazole in the morning and famotidine at bedtime. Discussed with patient avoiding dietary triggers. The importance of moving her bowels stressed with her. Patient can start taking MiraLax daily in addition to taking Senokot and Colace. Patient was encouraged to increase fluid intake and activity to promote better bowel motility. Patient is agreeable to this plan and verbalizes understanding of instructions. She was given the opportunity to ask questions and all questions answered. ? Thank you for allowing me to participate in her care Medications New polyethylene glycol 3350 (Miralax) 17 grams PO DAILY 510 grams 2RF TODAY'S VISIT : Patient is here for requested visit. Patient states that she continues to have left upper quadrant pain. She states that she is taking MiraLax in the morning and senna with Colace in the evening and she continues to be constipated. Patient reports that she is drinking plenty fluids, however she is under stress and might not be drinking as much as she should. Patient states that she is frequently helping her who was diagnosed with liver cancer. As mentioned during previous visits patient had GI care at [facility], however due to long drive and her being sick she moved to our practice. Patient had colonoscopy in 2020 and we have requested records. Will try to fax medical record request that will be signed by patient today. Patient continues to have left upper quadrant discomfort. Previously CT scan in 2019 was negative for any acute processes except for suspicion of epiploic appendagitis seen. Patient had MRI of abdomen in May of 2023 that did not show any acute processes. Patient's pain now is in the left upper quadrant versus left lower quadrant like when CT scan was taken. Suspicion of constipation, with possible gas trapping causing her pain. Patient was given script in the past for Linzess, however due to high insurance co-pay patient opted not to get it. Patient states that she spends lots money on patient's medication every month. Patient denies any melena, hematochezia, unintentional weight loss or ribbon like stools. Patient reports no dyspepsia, dysphagia or odynophagia. Patient is taking famotidine in the evening and omeprazole daily and her symptoms of acid reflux are suppressed. [facility] Medical History Osteoarthritis of right knee Hypercholesteremia Surgical History History of esophagogastroduodenoscopy (EGD) Hx of colonoscopy Hx of knee surgery Hx of hysterectomy Family History Father Stomach cancer Paternal Grandfather Esophageal cancer Brother Diabetes Social History Household Members: Spouse Alcohol intake: never Patient Tobacco Use Status: Never used Tobacco Review of Systems Const Denies weight gain and Denies weight loss ENT Reports no additional complaints, Denies dysphagia and Denies odynophagia Card Reports no additional complaints Resp Reports no additional complaints GI Reports abdominal pain (LUQ), Denies belching, Denies melena, Denies bloating, Reports constipation, Denies dysphagia, Denies excessive flatus, Denies dyspepsia, Denies heartburn, Denies diarrhea, Denies loose stools, Denies nausea, Denies odynophagia and Denies vomiting Reports no additional complaints Musc Reports no additional complaints Neuro Reports no additional complaints Psych Reports no additional complaints Endo Reports no additional complaints Physical Exam Vital Signs: Last Vital Signs Pulse 75 12/23/23 13:22 BP 131/58 L 12/23/23 13:22 Pulse Ox 95 12/23/23 13:22 Oxygen Delivery Method Room Air 12/23/23 13:22 Const General: healthy appearing and no acute distress Nutritional Appearance: obese Orientation/consciousness: patient oriented x3 Resp Effort & Inspection: normal respiratory effort, able to speak in complete sentences, no tracheal deviation and symmetric chest movement Auscultation: clear to auscultation bilaterally Cardio Rate: regular rate GI Inspection: Yes normal to inspection, No distended and Yes obesity Palpation (GI): Soft to palpation, not firm, nontender and No hepatosplenomegaly present Auscultation: normal bowel sounds General: Yes no CVA tenderness Back/Spine/Pelvis Back: no CVA tenderness Skin General skin exam: elasticity normal, turgor normal and dry skin Neuro General: patient oriented x3 Psych Appearance: grossly normal Mental Status: mental status grossly normal Assessment & Plan Assessment & Plan (1) Abdominal pain: Code(s): R10.9 - Unspecified abdominal pain Qualifiers: Abdominal location: left upper quadrant Qualified Code(s): R10.12 - Left upper quadrant pain (2) Chronic idiopathic constipation: Code(s): K59.04 - Chronic idiopathic constipation (3) GERD (gastroesophageal reflux disease): Code(s): K21.9 - Gastro-esophageal reflux disease without esophagitis Qualifiers: Esophagitis presence: esophagitis presence not specified Qualified Code(s): K21.9 - Gastro-esophageal reflux disease without esophagitis (4) LUQ abdominal pain: Code(s): R10.12 - Left upper quadrant pain Plan Patient will start taking Dulcolax and Colace in the evening, however we will send a script for Linzess and we will try to get the medication covered through cover my meds . Medical records request sent to him [facility] for records of visits as well as last colonoscopy. Patient's pain is not related to food. Most likely as mentioned above in HPI related to patient's constipation and gas trapping kind of pain. Negative lipase in the past as well as negative CT and MRI. Patient will follow-up in 3 months, sooner on as needed basis. Patient is agreeable to this plan and verbalizes understanding of instructions. She was given the opportunity to ask questions all questions answered. Thank you for allowing me to participate in her care Medications: New bisacodyl (Dulcolax (bisacodyl)) 10 mg (2 x 5 mg) PO BEDTIME 180 tabs 4RF linaclotide (Linzess) 145 mcg PO DAILY 30 caps 2RF Changed From docusate sodium 100 mg PO BEDTIME 90 caps 3RF K59.00 - Constipation, unspecified To docusate sodium 200 mg (2 x 100 mg) PO BEDTIME 90 caps 3RF K59.00 - Constipation, unspecified Discontinued sennosides (Natural Senna Laxative) Discontinued Reason: Doctor's Order 17.2 mg (2 x 8.6 mg) PO BEDTIME 180 tabs 3RF constipation K59.00 - Constipation, unspecified Coding Level of Care Code Est Pt Level 4 (79661) Diagnoses Left upper quadrant abdominal pain R10.12 Abdominal location: left upper quadrant Chronic idiopathic constipation K59.04 Gastroesophageal reflux disease, unspecified whether esophagitis present K21.9 Esophagitis presence: esophagitis presence not specified LUQ abdominal pain R10.12 Time Spent (min) 35 Comment 20 minutes spent with patient and additional 15 minutes spent reviewing her records
[2023-12-23 13:22] VITALS: BP 131/58; PULSE 75; O2SAT 95
== END 2023-12-23 13:54 | disposition home or self-care (01) ==
PROVIDERS: PCP Internal Medicine; Visit Provider Nurse Practitioner Family
DX: R10.12 Left upper quadrant pain (principal); K59.04 Chronic idiopathic constipation; K21.9 Gastro-esophageal reflux disease without esophagitis
CPT/HCPCS: 99214

== ENCOUNTER → 2023-12-23 13:09 | Outpatient (BNVA) | payer MEDICARE, SELFPAY | PROVIDERS: PCP Internal Medicine; Visit Provider Nurse Practitioner Family | DX: K59.04 Chronic idiopathic constipation (principal); K21.9 Gastro-esophageal reflux disease without esophagitis; R10.12 Left upper quadrant pain | CPT/HCPCS: 99212 ==

== ENCOUNTER 2024-03-23 09:36 | Outpatient (AMB) | payer BC, SELFPAY ==
[2024-03-23 09:40] VITALS: BMI 46.9
--- NOTE | 2024-03-23 09:40 | MHC.OFFVIS ---
Vital Signs 03/23/24 09:40 Height 5 ft 3 in Weight 265 lb BMI 46.9 Intake Visit Reasons: OV - Right Knee Synvisc One Injection Intake Note: Kristal,74 yr old female, presents today for synvisc injections for her RT knee. Pt reports sharp pain when walking, especially on an incline and on the stairs. She has been using cold patches and gel to help with the pain. Allergies No Known Allergies [No Known Allergies*] Allergy (Verified 03/23/24 09:44) HPI HPI OV - Right Knee Synvisc One Injection: Details: Kristal is here for Synvisc injection. She describes ongoing right knee pain PFSH Medical History Osteoarthritis of right knee Hypercholesteremia Surgical History History of esophagogastroduodenoscopy (EGD) Hx of colonoscopy Hx of knee surgery Hx of hysterectomy Family History Father Stomach cancer Paternal Grandfather Esophageal cancer Brother Diabetes Social History Household Members: Spouse Alcohol intake: never Patient Tobacco Use Status: Never used Tobacco Physical Exam Vital Signs: BMI result Body Mass Index 46.9 Extrem Other: Skin clean dry and intact Office Procedures Joint Injection/Drain Joint Injection/Drain Details: Injected Synvisc One. Site was prepped using aseptic technique. Patient tolerated the procedure well. Primary Site: right knee Approach Used: anterolateral Coding 97579 - Large joint Procedure code (CPT) selection complete Assessment & Plan Assessment & Plan (1) Osteoarthritis of right knee: Code(s): M17.11 - Unilateral primary osteoarthritis, right knee Category: Medical Plan: Synvisc One injected. Coding Level of Care Code Est Pt Level 2 (44632) Diagnoses Osteoarthritis of right knee M17.11 CPT Codes Coding - Large joint: 02339 - Large joint ([id number])
== END 2024-03-23 12:42 | disposition home or self-care (01) ==
PROVIDERS: PCP Internal Medicine; Visit Provider Orthopaedic Surgery
DX: M17.11 Unilateral primary osteoarthritis, right knee (principal)
CPT/HCPCS: 20610

== ENCOUNTER → 2024-03-23 09:36 | Outpatient (BNVA) | payer BC, SELFPAY | PROVIDERS: PCP Internal Medicine; Visit Provider Orthopaedic Surgery | DX: M17.11 Unilateral primary osteoarthritis, right knee (principal) | CPT/HCPCS: 20610; J7325 ==

== ENCOUNTER 2024-06-16 06:56 | Outpatient (REF) | payer BC, SELFPAY ==
[2024-06-16 07:07] LABS: MANUAL DIFF FLAG NO
[2024-06-16 07:44] LABS: Basophils Percent Auto 0.7 % (0-2); Eosinophils Absolute Auto 0.2 X10*3/uL (0.0-0.4); Eosinophils Percent Auto 2.7 % (0-4); Hematocrit 39.9 % (37.0-47.0); Hemoglobin 13.4 g/dl (12.0-16.0); Imm Gran Abs Auto 0.01 X10*3/uL (0.00-0.03); Imm Gran Pct Auto 0.2 % (0.0-0.4); Lymphocytes Absolute Auto 2.2 X10*3/uL (1.2-4.9); Lymphocytes Percent Auto 38.2 % (20-40); Mean Corpuscular HGB Conc 33.6 g/dl (31.0-35.0); Mean Corpuscular Hemoglobin 32.7 pg (27.0-33.0); Mean Corpuscular Volume 97.3 fL (80.0-98.0); Mean Platelet Volume 10.8 fL (9.4-12.3); Monocytes Absolute Auto 0.4 X10*3/uL (0.1-1.2); Monocytes Percent Auto 7.8 % (2-11); Neutrophils Absolute Auto 2.8 x10*3/uL (2.0-8.3); Neutrophils Percent Auto 50.4 % (45-73); Platelet Count 222 X10*3/uL (160-400); Red Cell Distribution Width 13.1 % (11.0-16.0); White Blood Count 5.6 X10*3/uL (4.8-10.8)
[2024-06-16 08:05] LABS: Alanine Aminotransferase 12 U/L (0-31); Alkaline Phosphatase 72 U/L (39-117); Anion Gap 11 (12-20); Aspartate Amino Transferase 15 U/L (5-31); Bilirubin Total 0.6 mg/dL (0.0-1.0); Blood Urea Nitrogen 12 mg/dL (9-16); Calcium 9.8 mg/dL (8.4-10.2); Carbon Dioxide 25 mmol/L (22-29); Chloride 110 mmol/L (96-108); Cholesterol 174 mg/dL (<200); Estimated Glomerular Filt Rate > 60; Glucose Random 89 mg/dL (60-115); HDL Cholesterol 55 mg/dL (>40); LDL Cholesterol Calculated 92 mg/dL (<100); Potassium 4.1 mmol/L (3.3-5.1); Sodium 142 mmol/L (135-145); Total Protein 6.7 g/dL (6.5-8.0); Triglycerides 138 mg/dL (<150)
== END 2024-06-16 06:57 | disposition home or self-care (01) ==
LOC: HO.LAB 06:56
PROVIDERS: PCP Internal Medicine; Visit Provider Internal Medicine
DX: E78.00 Pure hypercholesterolemia, unspecified (principal); G47.33 Obstructive sleep apnea (adult) (pediatric); I10 Essential (primary) hypertension; L84 Corns and callosities; Z68.42 Body mass index [BMI] 45.0-49.9, adult
CPT/HCPCS: 36415; 80053; 80061; 85025

== ENCOUNTER 2024-06-22 11:20 | Outpatient (REF) | payer MEDICARE, SELFPAY ==
--- NOTE | ~2024-06-22 | MM_ITS ---
EXAMINATION: MM SCREENING DIGITAL BREAST TOMOSYNTHESIS, BILATERAL CLINICAL INFORMATION: Screening. Asymptomatic. COMPARISON: Mammography: Comparison is made with available priors TECHNIQUE: Digital breast mammography with tomosynthesis is performed in both the craniocaudal and mediolateral oblique views along with computer-aided detection (CAD). FINDINGS: There are scattered areas of fibroglandular density (ACR BI-RADS breast composition Category b). There are no significant masses, abnormal calcifications, or other abnormalities. MM/MM tomosynthesis screening BI IMPRESSION: No mammographic evidence of malignancy. ASSESSMENT: BI-RADS BI-RADS 1 - Negative RECOMMENDATION: Routine annual mammography screening. 1 year F/U This examination should not preclude the clinical evaluation of a suspicious palpable abnormality. This patient's information was entered into a reminder system with a target due date for their next mammogram. Electronically signed by: Monique Cardenas DO 07/03/2024 09:21 AM EDT
== END 2024-06-22 11:21 | disposition home or self-care (01) ==
LOC: HO.MAMMO 11:20
PROVIDERS: PCP Internal Medicine; Visit Provider Internal Medicine
DX: Z12.31 Encounter for screening mammogram for malignant neoplasm of breast (principal)
CPT/HCPCS: 77063; 77067

== ENCOUNTER → 2024-06-22 11:30 | Outpatient (BNV) | payer MEDICARE, SELFPAY | PROVIDERS: PCP Internal Medicine; Visit Provider Internal Medicine | DX: Z12.31 Encounter for screening mammogram for malignant neoplasm of breast (principal) | CPT/HCPCS: 77063; 77067 ==

== ENCOUNTER 2024-07-29 10:29 | Outpatient (AMB) | payer BC, MEDICAID, SELFPAY ==
--- NOTE | 2024-07-29 10:34 | A.OFFVIS_ITS ---
Vital Signs 07/29/24 10:35 Height 5 ft 3 in Weight 268 lb 15.423 oz BMI 47.6 BP 132/62 Blood Pressure Location Rt brachial Position Sitting Pulse 74 Pulse Source Pulse Oximeter Pulse Oximetry (%) 94 Oxygen Delivery Method Room Air Intake Visit Reasons: follow up req by patient Intake Note: PRESCRIPTIONS LAST GENERATED docusate sodium 100 mg capsule?200 mg (2 x 100 mg) PO BEDTIME 90 caps 3RF Coy,Dyana D 12/23/23 13:44 (Transmitted) bisacodyl 5 mg tablet,delayed release?(Dulcolax (bisacodyl))?10 mg (2 x 5 mg) PO BEDTIME 180 tabs 4RF Coy,Dyana D 12/23/23 13:44 (Transmitted) linaclotide 145 mcg capsule?(Linzess)?145 mcg PO DAILY 30 caps 2RF Coy,Dyana D 12/23/23 20:56 (Transmitted) Relevant Flags or Indicators ? Requires Survey Project Manager? Ana Kristal presents in office today for a scheduled ~ 6-8 mos FUV. CC; No recent labs, diagnostics placed. ?Pt did have labs per their PCP however. Pt would like to inform us that she is seeing urology on 09/02/24 (Dr. Pedersen) Relevant GI Sx as reported per pt? Abdominal Pain o?? Lower left abd pain. ? Hx of any recent surgeries? None, however; pt would like to discuss possible egd and colo due to chronic pain. Allergies No Known Allergies [No Known Allergies*] Allergy (Verified 07/29/24 10:35) HPI HPI follow up req by patient: Details: LAST VISIT: Abdominal pain Chronic idiopathic constipation GERD (gastroesophageal reflux disease) LUQ abdominal pain Plan Patient will start taking Dulcolax and Colace in the evening, however we will send a script for Linzess and we will try to get the medication covered through cover my meds . Medical records request sent to [facility] for records of visits as well as last colonoscopy. Patient's pain is not related to food. Most likely as mentioned above in HPI related to patient's constipation and gas trapping kind of pain. Negative lipase in the past as well as negative CT and MRI. Patient will follow-up in 3 months, sooner on as needed basis. Patient is agreeable to this plan and verbalizes understanding of instructions. She was given the opportunity to ask questions all questions answered. ? Thank you for allowing me to participate in her care Medications New bisacodyl (Dulcolax (bisacodyl)) 10 mg (2 x 5 mg) PO BEDTIME 180 tabs 4RF linaclotide (Linzess) 145 mcg PO DAILY 30 caps 2RF Changed Changed From docusate sodium 100 mg PO BEDTIME 90 caps 3RF K59.00 Changed To docusate sodium 200 mg (2 x 100 mg) PO BEDTIME 90 caps 3RF K59.00 Discontinued sennosides (Natural Senna Laxative) Discontinued Reason: Doctor's Order 17.2 mg (2 x 8.6 mg) PO BEDTIME 180 tabs 3RF constipation K59.00 TODAY'S VISIT Patient is here today for follow-up. Patient reports that she has been feeling well, has been grieving the of her who this summer. Patient is trying to take care of her needs and will be traveling to [place] to see family and to work on selling their home. Patient reports occasional left lower quadrant pain. States that she takes Dulcolax and is able to move her bowels. Her symptoms of acid reflux are suppressed for the most part with omeprazole. Previously we did CT scan that showed no acute processes. Patient will be due to go for colonoscopy next year. Denies any melena, hematochezia, unintentional weight loss or ribbon like stools. Patient denies any dyspepsia, dysphagia or odynophagia. Patient denies any nausea or vomiting. Patient denies any diarrhea. [facility] Medical History Osteoarthritis of right knee Hypercholesteremia Surgical History History of esophagogastroduodenoscopy (EGD) Hx of colonoscopy Hx of knee surgery Hx of hysterectomy Family History Father Stomach cancer Paternal Grandfather Esophageal cancer Brother Diabetes Social History Household Members: Spouse Alcohol intake: never Patient Tobacco Use Status: Never used Tobacco Review of Systems Const Denies weight gain and Denies weight loss ENT Reports no additional complaints, Denies dysphagia and Denies odynophagia Card Reports no additional complaints Resp Reports no additional complaints GI Reports abdominal pain (LLQ), Denies belching, Denies melena, Denies bloating, Denies change in bowel habits, Reports constipation (Occasional), Denies dysphagia, Denies excessive flatus, Denies early satiety, Denies dyspepsia, Denies heartburn, Denies diarrhea, Denies loose stools, Denies nausea, Denies odynophagia and Denies vomiting Reports no additional complaints Musc Reports no additional complaints Neuro Reports no additional complaints Psych Reports no additional complaints Endo Reports no additional complaints Physical Exam Vital Signs: Last Vital Signs Pulse 74 07/29/24 10:35 BP 132/62 07/29/24 10:35 Pulse Ox 94 07/29/24 10:35 Oxygen Delivery Method Room Air 07/29/24 10:35 BMI result Body Mass Index 47.6 Const General: healthy appearing and no acute distress Nutritional Appearance: obese Orientation/consciousness: patient oriented x3 Resp Effort & Inspection: normal respiratory effort, able to speak in complete sentences, no tracheal deviation and symmetric chest movement Auscultation: clear to auscultation bilaterally Cardio Rate: regular rate GI Inspection: Yes normal to inspection, No distended and Yes obesity Palpation (GI): Soft to palpation, not firm, nontender and No hepatosplenomegaly present Auscultation: normal bowel sounds General: Yes no CVA tenderness Back/Spine/Pelvis Back: no CVA tenderness Skin General skin exam: elasticity normal, turgor normal and dry skin Neuro General: patient oriented x3 Psych Appearance: grossly normal Mental Status: mental status grossly normal Assessment & Plan Assessment & Plan (1) Abdominal pain: Code(s): R10.9 - Unspecified abdominal pain Qualifiers: Abdominal location: left lower quadrant Qualified Code(s): R10.32 - Left lower quadrant pain (2) Chronic idiopathic constipation: Code(s): K59.04 - Chronic idiopathic constipation (3) GERD (gastroesophageal reflux disease): Code(s): K21.9 - Gastro-esophageal reflux disease without esophagitis Qualifiers: Esophagitis presence: esophagitis presence not specified Qualified Code(s): K21.9 - Gastro-esophageal reflux disease without esophagitis (4) LUQ abdominal pain: Code(s): R10.12 - Left upper quadrant pain Plan Continue current bowel management. Increase fluid intake and activity to promote better bowel motility. Patient will continue taking PPI. Avoid dietary triggers and late night snacking. Staying upright for minimum 3 hours after meals discussed with patient. Patient will be traveling to [place] and when she will return we will see her to discuss going for colonoscopy and possible upper endoscopy if she will continue to have symptoms. Patient is agreeable to this plan and verbalizes understanding of instructions. She was given the opportunity to ask questions and all questions answered. Thank you for allowing me to participate in her care Coding Level of Care Code Est Pt Level 3 (15299) Diagnoses Left lower quadrant abdominal pain R10.32 Abdominal location: left lower quadrant Chronic idiopathic constipation K59.04 Gastroesophageal reflux disease, unspecified whether esophagitis present K21.9 Esophagitis presence: esophagitis presence not specified LUQ abdominal pain R10.12 Time Spent (min) 30 Comment 20 minutes spent with patient and additional 10 minutes spent reviewing her records
[2024-07-29 10:35] VITALS: BP 132/62; PULSE 74; O2SAT 94; BMI 47.6
== END 2024-07-29 11:28 | disposition home or self-care (01) ==
LOC: HO.HGI 10:30
PROVIDERS: PCP Internal Medicine; Visit Provider Nurse Practitioner Family
DX: R10.32 Left lower quadrant pain (principal); K59.04 Chronic idiopathic constipation; K21.9 Gastro-esophageal reflux disease without esophagitis; R10.12 Left upper quadrant pain
CPT/HCPCS: 99213

== ENCOUNTER → 2024-07-29 10:29 | Outpatient (BNVA) | payer BC, MEDICAID, SELFPAY | PROVIDERS: PCP Internal Medicine; Visit Provider Nurse Practitioner Family ==

== ENCOUNTER 2024-09-03 13:26 | Outpatient (AMB) | payer BC, MEDICAID, SELFPAY ==
--- NOTE | 2024-09-03 13:53 | MHC.OFFVIS ---
Vital Signs 09/03/24 13:56 Height 5 ft 3 in Weight 268 lb BMI 47.5 Intake Visit Reasons: OV- Right knee OA - S/p Synvisc One 03/23/24 Intake Note: Kristal is a 74 year old female who presents today for a follow up of her right knee OA. Synvisc One injection was administered to the right knee on 03/23/24. States gel injection did not help at all. Allergies No Known Allergies [No Known Allergies*] Allergy (Verified 09/03/24 13:54) HPI HPI OV- Right knee OA - S/p Synvisc One 03/23/24: Details: Kristal is a 74 year old female who presents today for a follow up of her right knee OA. Synvisc One injection was administered to the right knee on 03/23/24. States gel injection did not help at all. Steroid injections have been helpful in the past. She recently suffered a loss in the family and feels frustrated that she can not be as active as she would like. She has bilateral knee pain but the right is worse than the left. Her radiographs have demonstrated severe arthritis in the past. She feels she can not exercise to lose weight. [facility] Medical History Osteoarthritis of right knee Hypercholesteremia Surgical History History of esophagogastroduodenoscopy (EGD) Hx of colonoscopy Hx of knee surgery Hx of hysterectomy Family History Father Stomach cancer Paternal Grandfather Esophageal cancer Brother Diabetes Social History Household Members: Spouse Alcohol intake: never Patient Tobacco Use Status: Never used Tobacco Physical Exam Vital Signs: BMI result Body Mass Index 47.5 Extrem Other: Tenderness to palpation medial compartment bilateral knees right greater than left. Office Procedures Joint Inj/Aspir; Non-Pain Clin Joint Injection/Drain Details: Injected 1 mL of Decadron and 3 mL 1% lidocaine and 3 mL of 0.25% Marcaine. Site was prepped using aseptic technique. Patient tolerated the procedure well. Shoulders, Hips, Knees, Knee Large Joint Injection : Right Knee Coding Procedure code (CPT) selection complete Assessment & Plan Assessment & Plan (1) Osteoarthritis of right knee: Code(s): M17.11 - Unilateral primary osteoarthritis, right knee Category: Medical Plan: This is a 74-year-old woman with severe osteoarthritis of her bilateral knees. She is interested in arthroplasty but at this point in time her BMI is 47. She is otherwise relatively healthy. I think it is reasonable that she wants to be more active and she certainly does have severe arthritis. She may be a good candidate for a GLP-1 agonist. I think this is reasonable to consider and I recommend that she see her PCP. Weight loss to be within consideration for a total knee arthroplasty would be proximally 35 lb. Coding Level of Care Code Est Pt Level 3 (31622) Diagnoses Osteoarthritis of right knee M17.11 CPT Codes Shoulders, Hips, Knees, - Knee Large Joint Injection : Right Knee ([id number])
[2024-09-03 13:56] VITALS: BMI 47.5
== END 2024-09-03 14:22 | disposition home or self-care (01) ==
PROVIDERS: PCP Internal Medicine; Visit Provider Orthopaedic Surgery
DX: M17.11 Unilateral primary osteoarthritis, right knee (principal)
CPT/HCPCS: 20610; 99213

== ENCOUNTER → 2024-09-03 13:26 | Outpatient (BNVA) | payer BC, MEDICAID, SELFPAY | PROVIDERS: PCP Internal Medicine; Visit Provider Orthopaedic Surgery | DX: M17.0 Bilateral primary osteoarthritis of knee (principal) | CPT/HCPCS: 20610; J0665; J1100; J2003; J7325 ==

== ENCOUNTER 2024-12-14 14:35 | Outpatient (AMB) | payer BC, MEDICAID, SELFPAY ==
--- NOTE | 2024-12-14 14:39 | MHC.OFFVIS ---
Intake Visit Reasons: frequent urination Intake Note: Patient presents to office today for frequent urination Urology Medication:none Blood Thinner:none Allergy to Antibiotic:none PVR:125ml Allergies No Known Allergies [No Known Allergies*] Allergy (Verified 12/14/24 14:41) HPI Comments Details: Kristal is a 74-year-old female she states that she is concerned regarding worsening urinary leakage. She wears a pad daily. Comorbidity-obesity. She states the problem has been worsening over the past several years. She states that 5 years ago she saw a urologist who tried a pessary but it was painful and it had to be removed. She states she has never been on medication for the bladder previously. She states she also saw a urologist many years ago and a type of test was done where her bladder was filled with water after the testing she states that no treatment was discussed with her. She denies having urinary tract infections. She states that her about 8 months ago. She denies seeing blood in the urine. UA - neg blood, neg leuk. Bladder scan PVR 125 mL. I have discussed further evaluation with kidney and bladder ultrasound we will trial VESIcare 5 mg daily and have her follow-up for office cystoscopy. [facility] Medical History Osteoarthritis of right knee Hypercholesteremia Surgical History History of esophagogastroduodenoscopy (EGD) Hx of colonoscopy Hx of knee surgery Hx of hysterectomy Family History Father Stomach cancer Paternal Grandfather Esophageal cancer Brother Diabetes Social History Household Members: Spouse Alcohol intake: never Patient Tobacco Use Status: Never used Tobacco Review of Systems Const All systems reviewed & are unremarkable except as noted in HPI and below Reports no additional complaints Eyes Reports no additional complaints ENT Reports no additional complaints Card Reports no additional complaints Resp Reports no additional complaints GI Reports no additional complaints Reports as per HPI Musc Reports no additional complaints Skin/Breast Reports system reviewed and no additional complaints, except as documented Neuro Reports no additional complaints Psych Reports no additional complaints Endo Reports no additional complaints Hunter/Lymph Reports no additional complaints Aller/Immun Reports no additional complaints Physical Exam Const General: cooperative, healthy appearing and no acute distress Nutritional Appearance: overweight Orientation/consciousness: patient oriented x3 HEENT Head: Yes normal to inspection, Yes normocephalic and Yes atraumatic Eyes Conjunctivae: conjunctivae normal Neck Neck: Yes normal visual inspection and Yes trachea midline Chest Chest palpation & inspection: normal inspection of the chest Resp Effort & Inspection: normal respiratory effort GI Inspection: Yes normal to inspection Neuro General: patient oriented x3 Psych Appearance: grossly normal Results AMB Urinalysis, Automated UA Leukoctes 0 Celia/uL Last Edit by Kathryn Ramirez on 12/14/24 15:05 UA Nitrite Negative Last Edit by Kathryn Ramirez on 12/14/24 15:05 UA Urobilinogen 3.5 mg/dL Last Edit by Kathryn Ramirez on 12/14/24 15:05 UA Protein 0 mg/dL Last Edit by Kathryn Ramirez on 12/14/24 15:05 UA pH 5.5 Last Edit by Kathryn Ramirez on 12/14/24 15:05 UA Blood 0 Aneudy/uL Last Edit by Kathryn Ramirez on 12/14/24 15:05 UA Specific [place] 1.020 Last Edit by Kathryn Ramirez on 12/14/24 15:05 UA Ketone Negative Last Edit by Kathryn Ramirez on 12/14/24 15:05 UA Bilirubin 0 mg/dL Last Edit by Kathryn Ramirez on 12/14/24 15:05 UA Glucose 0 mg/dL Last Edit by Kathryn Ramirez on 12/14/24 15:05 Results Reviewed Results Reviewed: Laboratory Last Values Urine pH (Auto) 5.5 12/14/24 14:09 Specific [place] (Auto) 1.020 12/14/24 14:09 Urine Protein (Auto) 0 mg/dL 12/14/24 14:09 Glucose (UA)(Auto) 0 mg/dL 12/14/24 14:09 Urine Ketones (Auto) Negative 12/14/24 14:09 Urine Blood (Auto) 0 Aneudy/uL 12/14/24 14:09 Urine Nitrite (Auto) Negative 12/14/24 14:09 Urine Bilirubin (Auto) 0 mg/dL 12/14/24 14:09 Urine Urobilinogen (Auto) 3.5 mg/dL 12/14/24 14:09 Leukocyte Esterase (Auto) 0 Celia/uL 12/14/24 14:09 Assessment & Plan Assessment & Plan (1) Obesity: Code(s): E66.9 - Obesity, unspecified Category: Medical (2) Urinary urgency: Code(s): R39.15 - Urgency of urination Category: Medical (3) Urinary incontinence: Code(s): R32 - Unspecified urinary incontinence Category: Medical Plan UA - neg blood, neg leuk. Bladder scan PVR 125 mL. I have discussed further evaluation with kidney and bladder ultrasound we will trial VESIcare 5 mg daily and have her follow-up for office cystoscopy. Orders: Orders AMB Urinalysis Automated Today Z13.9 - Encounter for screening, unspecified US retroperitoneal comp Today E66.9 - Obesity, unspecified, R32 - Unspecified urinary incontinence, R39.15 - Urgency of urination Medications: New solifenacin (Vesicare) 5 mg PO DAILY 30 tabs 3RF Patient Instructions: The patient had an opportunity to ask questions regarding treatment plan. The patient expressed understanding and agreement with the above treatment plan. The patient is aware they should contact our office by phone for worsening of their current condition or the appearance of new symptoms. Compliance is encouraged with any medications and followup testing that is ordered. It is a privilege to be allowed the opportunity to participate in the urologic care of your patient. If you have any questions or concerns regarding treatment for the above conditions please do not hesitate to contact me. The office telephone contact is [phone]. This note is constructed in part using voice recognition software. While every effort has been made to ensure accuracy seo engineer errors may have been included. Yours sincerely, Lori Vasquez MD Coding Level of Care Code New Pt Level 4 (82606) Diagnoses Obesity E66.9 Urinary urgency R39.15 Urinary incontinence R32
--- OUTSIDE RECORDS SUMMARY | 2024-12-14 17:11 | XMS_ITS | Patient Health Record ---
Author Organization [facility] [place] Address [address] [place] [address] Care Team Providers Care Bleaching Supervisor Name Role Phone Anushkakiran Sarah Primary Care Provider Unavailab Christina Garrtet Unavailable [phone] Allergies No Known Allergies Results Component Value [...] Ordered Date Performed Result Body Sit e 34167-SOIHLOU NAIL, 6 OR MORE 06/15/2024 N/A Encounters Encounter Location Date Provider Diagnosis [address] [address] 06/15/2024 Christina Monaco Pain in left foot M79.672 ; Pain in left ankle and joints of left foot M25.572 ; Bursitis of intermetatarsal bursa of left foot M77.52 ; Metatarsalgia, left foot M77.42 ; Tinea unguium B35.1 ; Pain in right toe(s) M79.674 ; Pain in left toe(s) M79.675 and Tinea pedis of both feet B35.[address] [address] 03/05/[address] [address] [facility]/2024 [facility] [address] [address] 09/07/2024 Christina Monaco Assessments Encounter Date Diagnosis [...] Treatment Pending Test Test Name Order Date [id number] NAIL, 6 OR MORE 06/15/2024 Next Appt Details Provider Name:Christina Monaco , 01/25/2025 03:45:00 PM, [address] [place], [address], Insurance Providers Payer Name Payer Address Payer Phone Subscriber Number Group Number Insured Name Patient Relationship to Insured Coverage Start Date Coverage End Date [facility] 65 Medicare Preferred [address] [place] [address] [id number] Kristla Ingram Self - patient is the insured Medical (General) History Medical History History ICD Code Back,Hip,and Knee pain High blood pressure C PAP Surgical History Surgery Date(Month/Year) 1989
--- OUTSIDE RECORDS SUMMARY | 2024-12-14 17:11 | XMS_ITS ---
[facility] Address [address] [place] [address] Care Team Providers Care Pay Clerk Name Role Phone Sarah Winter Primary Care Provider Unavailab Christina Garrett [phone] Encounters Encounter Location Date Provider Diagnosis [address] [address] 09/07/2024 Christina Monaco Plan Of Treatment Next Appt Details Provider Name:Christina Monaco , 01/25/2025 03:45:00 PM, [address] [place] [address], [phone], Progress Notes * Pepito COOPERAdrienneOB:1949 (74 yo F)Acc No.[id number]:09/07/2024 Progress Note Patient:?Kristal COOPER Provider:?Christina Monaco DPM :1950???Age:74 Y???Sex:Female D ate:09/07/2024 [address] Pcp:Sarah Winter Subjective: * Chief Complaints: * ??? * Medical History:? Objective: * Vitals:? Assessment: Plan: * Treatment: * Images: * The named appointment provid er may or may not be the originator of this progress note, and it is not deemed complete until electronically signed by the appointment provider. Sign off status: Pending * Provider:Mayco Monaco DPM Date:?2023 Generated for Asher headley/Sun/Liam on:?12/14/2024 05:11 PM EDT
--- OUTSIDE RECORDS SUMMARY | 2024-12-14 17:11 | XMS_ITS ---
Author Organization [facility] Address [address] [place] [address] Care Team Providers Care Scuba Instructor Name Role Phone Sarah Winter Primary Care Provider Unavailab Christina Garrett Unavailable [phone] REASON FOR VISIT 09/07/24 appt Encounters Encounter Location Date Provider [facility] [address] [place] [address] 09/07/2024 Christina Monaco Plan Of Treatment Next Appt Details Provider Name:Christina Monaco , 01/25/2025 03:45:00 PM, [address] [place], [address], Progress Notes * ALLISONPepitoAdrienneOB:1949 (74 yo F)Acc No.[id number]:09/07/2024 Patient:?Kristal COOPER :1950???Age:74 Y???Sex:Female Address[address] [place] [address] * true * Date:? Generated for Printi ng/Sun/eTransmitting on:?12/14/2024 05:11 PM EDT
--- OUTSIDE RECORDS SUMMARY | 2024-12-14 17:11 | XMS_ITS ---
Author [facility] Address [address] [place] [address] Care Team Providers Care Applied Marine Physics Professor Name Role Phone Sarah Winter Primary Care Provider Unavailab Christina Garrett [phone] Encounters Encounter Location Date Provider Diagnosis [address] [place] [address] [address] 12/03/2024 Christina Monaco Plan Of Treatment Next Appt Details Provider Name:Christina Monaco , 01/25/2025 03:45:00 PM, [address] [place] [address], [address], Progress Notes * Pepito COOPERAdrienneOB:1949 (74 yo F)Acc No.[id number]:12/03/2024 Progress Note Patient:?Kristal COOPER Provider:?Christina Monaco DPM :1950???Age:74 Y???Sex:Female D ate:12/03/2024 Address[address] [place] Pcp:Sarah Winter Subjective: * Chief Complaints: * ??? * Medical History:? Objective: * Vitals:? Assessment: Plan: * Treatment: * Images: * The named appointment provid er may or may not be the originator of this progress note, and it is not deemed complete until electronically signed by the appointment provider. Sign off status: Pending * Provider:Mayco Monaco DPM Date:?2024 Generated for Asher headley/Sun/Liam on:?12/14/2024 05:11 PM EDT
== END 2024-12-14 15:24 | disposition home or self-care (01) ==
LOC: HO.HUSH 14:35
PROVIDERS: PCP Internal Medicine; Visit Provider Urology
DX: E66.9 Obesity, unspecified (principal); R39.15 Urgency of urination; R32 Unspecified urinary incontinence; Z13.9 Encounter for screening, unspecified
CPT/HCPCS: 99204

== ENCOUNTER → 2024-12-14 14:35 | Outpatient (BNVA) | payer BC, MEDICAID, SELFPAY | PROVIDERS: PCP Internal Medicine; Visit Provider Urology | DX: R32 Unspecified urinary incontinence (principal); E66.9 Obesity, unspecified; R39.15 Urgency of urination | CPT/HCPCS: 51798; 81003 ==

== ENCOUNTER 2024-12-16 09:28 | Outpatient (AMB) | payer BC, MEDICAID, SELFPAY ==
--- NOTE | 2024-12-16 09:30 | MHC.OFFVIS ---
Vital Signs 12/16/24 09:41 Height 5 ft 3 in Weight 263 lb BMI 46.6 BP 138/76 Blood Pressure Location Rt brachial Position Sitting Pulse 72 Pulse Source Pulse Oximeter Pulse Oximetry (%) 97 Oxygen Delivery Method Room Air Intake Visit Reasons: ~4-5 mos FUV. Pre op + discuss US. Intake Note: ESTABLISHED PATIENT for mgmt of abd pain + pre operative visit. Chief Complaint; C/O chronic LLQ pain and intermittent fecal abn consistent with complaint from last visit. Pt does report however, that her reflux is well controlled at this time. Apartment Maintenance Required: No Accompanied by: Self / Same As Patient Allergies No Known Allergies [No Known Allergies*] Allergy (Verified 12/14/24 14:41) Medication List - Last Reconciled 12/16/24 by PHILL Yee-MARGARETH acetaminophen (Tylenol) 650 mg (2 x 325 mg) PO Q6H PRN atorvastatin 1 tab PO BEDTIME bisacodyl (Dulcolax (bisacodyl)) 10 mg PO BEDTIME PRN cetirizine 1 tab PO DAILY cholecalciferol (vitamin D3) 50 mcg PO DAILY cyanocobalamin (vitamin B-12) 100 mcg PO DAILY docusate sodium 200 mg PO BEDTIME PRN famotidine 40 mg PO DAILY fluticasone propionate 50 mcg/actuation sprays intranasal ibuprofen 600 mg PO Q6H linaclotide (Linzess) 145 mcg PO DAILY losartan 50 mg PO DAILY naproxen 500 mg PO BID PRN omega-3 fatty acids 500 mg PO DAILY omeprazole 20 mg PO DAILY PRN polyethylene glycol 3350 (Miralax) 17 grams PO DAILY solifenacin (Vesicare) 5 mg PO DAILY HPI HPI ~4-5 mos FUV. Pre op + discuss US.: Details: LAST VISIT: Abdominal pain Chronic idiopathic constipation GERD (gastroesophageal reflux disease) LUQ abdominal pain Plan Continue current bowel management. Increase fluid intake and activity to promote better bowel motility. Patient will continue taking PPI. Avoid dietary triggers and late night snacking. Staying upright for minimum 3 hours after meals discussed with patient. Patient will be traveling to [place] and when she will return we will see her to discuss going for colonoscopy and possible upper endoscopy if she will continue to have symptoms. Patient is agreeable to this plan and verbalizes understanding of instructions. She was given the opportunity to ask questions and all questions answered. TODAY'S VISIT: Patient is here today for follow-up and to discuss going for upper endoscopy and colonoscopy. Patient just returned from [place] few days ago. Reports ongoing left lower quadrant pain/discomfort. Patient denies any melena, hematochezia, unintentional weight loss or ribbon like stools. Patient denies any dyspepsia, dysphagia or odynophagia. Denies any issues with anesthesia in the past. Patient denies any cardiac or respiratory symptoms. Patient reports symptoms of acid reflux are suppressed for the most part with omeprazole. Patient is trying to avoid dietary triggers as well. Patient denies any other GI concerning symptoms. PFSH Medical History Osteoarthritis of right knee Hypercholesteremia Surgical History History of esophagogastroduodenoscopy (EGD) Hx of colonoscopy Hx of knee surgery Hx of hysterectomy Family History Father Stomach cancer Paternal Grandfather Esophageal cancer Brother Diabetes Social History Household Members: Spouse Alcohol intake: never Patient Tobacco Use Status: Never used Tobacco Review of Systems Const Denies weight gain and Denies weight loss ENT Reports no additional complaints, Denies dysphagia and Denies odynophagia Card Reports no additional complaints Resp Reports no additional complaints GI Reports abdominal pain (LLQ), Denies belching, Denies melena, Denies bloating, Denies change in bowel habits, Reports constipation (Occasional), Denies dysphagia, Denies excessive flatus, Denies early satiety, Denies dyspepsia, Denies heartburn, Denies diarrhea, Denies loose stools, Denies nausea, Denies odynophagia and Denies vomiting Reports no additional complaints Musc Reports no additional complaints Neuro Reports no additional complaints Psych Reports no additional complaints Endo Reports no additional complaints Physical Exam Vital Signs: Last Vital Signs Pulse 72 12/16/24 09:41 BP 138/76 12/16/24 09:41 Pulse Ox 97 12/16/24 09:41 Oxygen Delivery Method Room Air 12/16/24 09:41 BMI result Body Mass Index 46.6 Const General: healthy appearing and no acute distress Nutritional Appearance: obese Orientation/consciousness: patient oriented x3 Resp Effort & Inspection: normal respiratory effort, able to speak in complete sentences, no tracheal deviation and symmetric chest movement Auscultation: clear to auscultation bilaterally Cardio Rate: regular rate GI Inspection: Yes normal to inspection, No distended and Yes obesity Palpation (GI): Soft to palpation, not firm, nontender and No hepatosplenomegaly present Auscultation: normal bowel sounds General: Yes no CVA tenderness Back/Spine/Pelvis Back: no CVA tenderness Skin General skin exam: elasticity normal, turgor normal and dry skin Neuro General: patient oriented x3 Psych Appearance: grossly normal Mental Status: mental status grossly normal Assessment & Plan Assessment & Plan (1) Abdominal pain: Code(s): R10.9 - Unspecified abdominal pain Qualifiers: Abdominal location: left lower quadrant Qualified Code(s): R10.32 - Left lower quadrant pain (2) Chronic idiopathic constipation: Code(s): K59.04 - Chronic idiopathic constipation (3) GERD (gastroesophageal reflux disease): Code(s): K21.9 - Gastro-esophageal reflux disease without esophagitis Qualifiers: Esophagitis presence: esophagitis presence not specified Qualified Code(s): K21.9 - Gastro-esophageal reflux disease without esophagitis (4) LUQ abdominal pain: Code(s): R10.12 - Left upper quadrant pain (5) Screen for colon cancer: Code(s): Z12.11 - Encounter for screening for malignant neoplasm of colon Plan Patient has upper endoscopy and colonoscopy scheduled next month. What to expect before during and after procedure discussed with patient. Patient was encouraged to increase fluid intake and activity to promote better bowel motility. Take Dulcolax daily. We have discussed this in the past about making sure that she empties her bowels better. Pain in her left lower and left upper quadrant better after moving her bowels. Stressed the importance of good bowel prep day before procedure. Patient will upper endoscopy to rule out gastritis, duodenitis, esophagitis,. Continue omeprazole daily. Avoid dietary triggers and late night snacking. Staying upright for minimum 3 hours after meals discussed with patient. Medications: New bisacodyl (Dulcolax (bisacodyl)) Start taking 2 tablet every night 7 days before the procedure and 1 day before procedure take 4 tablets at noon time followed by MiraLax prep 10 mg (2 x 5 mg) PO BEDTIME 16 tabs 0RF Z12.11 - Encounter for screening for malignant neoplasm of colon polyethylene glycol 3350 (Miralax) As directed by gastroenterology department at [facility] 238 grams PO ONCE 238 grams 0RF Z12.11 - Encounter for screening for malignant neoplasm of colon Coding Level of Care Code Est Pt Level 3 (11692) Diagnoses Left lower quadrant abdominal pain R10.32 Abdominal location: left lower quadrant Chronic idiopathic constipation K59.04 Gastroesophageal reflux disease, unspecified whether esophagitis present K21.9 Esophagitis presence: esophagitis presence not specified LUQ abdominal pain R10.12 Screen for colon cancer Z12.11 Time Spent (min) 30 Comment 20 minutes spent with patient and additional 10 minutes spent reviewing her records
[2024-12-16 09:41] VITALS: BP 138/76; PULSE 72; O2SAT 97; BMI 46.6
--- OUTSIDE RECORDS SUMMARY | 2024-12-16 10:27 | XMS_ITS ---
Author Organization [facility] Address [address] [place] [address] Care Team Providers Care Information Technology Intern Name Role Phone Sarah Winter Primary Care Provider Unavailab Christina Garrett [phone] Encounters Encounter Location Date Provider Diagnosis [address] [address] 12/03/2024 Christina Monaco Plan Of Treatment Next Appt Details Provider Name:Christina Monaco , 01/25/2025 03:45:00 PM, [address] [place] [address], [address], Progress Notes * Pepito COOPERAdrienneOB:1949 (74 yo F)Acc No.[id number]:12/03/2024 Progress Note Patient:?Kristal COOPER Provider:?Christina Monaco DPM :1950???Age:74 Y???Sex:Female D ate:12/03/2024 Address[address] Pcp:Sarah Winter Subjective: * Chief Complaints: * ??? * Medical History:? Objective: * Vitals:? Assessment: Plan: * Treatment: * Images: * The named appointment provid er may or may not be the originator of this progress note, and it is not deemed complete until electronically signed by the appointment provider. Sign off status: Pending * Provider:Mayco Monaco DPM Date:?2024 Generated for Asher headley/Sun/Liam on:?12/16/2024 10:27 AM EDT
--- OUTSIDE RECORDS SUMMARY | 2024-12-16 10:27 | XMS_ITS ---
Author Organization [facility] Address [address] [place] [address] Care Team Providers Care Special Education Professor Name Role Phone Sarah Winter Primary Care Provider Unavailab Christina Garrett [phone] Encounters Encounter Location Date Provider Diagnosis [address] [address] 09/07/2024 Christina Monaco Plan Of Treatment Next Appt Details Provider Name:Christina Monaco , 01/25/2025 03:45:00 PM, [address] [place] [address], [address], Progress Notes * Pepito COOPERAdrienneOB:1949 (74 yo F)Acc No.[id number]:09/07/2024 Progress Note Patient:?Kristal COOPER Provider:?Christina Monaco DPM :1950???Age:74 Y???Sex:Female D ate:09/07/2024 Address[address] Pcp:Sarah Winter Subjective: * Chief Complaints: * ??? * Medical History:? Objective: * Vitals:? Assessment: Plan: * Treatment: * Images: * The named appointment provid er may or may not be the originator of this progress note, and it is not deemed complete until electronically signed by the appointment provider. Sign off status: Pending * Provider:Mayco Monaco DPM Date:?2023 Generated for Asher headley/Sun/Liam on:?12/16/2024 10:27 AM EDT
--- OUTSIDE RECORDS SUMMARY | 2024-12-16 10:27 | XMS_ITS | Patient Health Record ---
Author Organization [facility] [place] Address [address] [facility] [place] [address] Care Team Providers Care Corner Brace Block Machine Operator Name Role Phone Anushkakiran Sarah Primary Care Provider Unavailab Christina Garrett Unavailable [phone] Allergies No Known Allergies Results Component Value [...] Ordered Date Performed Result Body Sit e 54706-MZCLWSL NAIL, 6 OR MORE 06/15/2024 N/A Encounters Encounter Location Date Provider Diagnosis [address] [address] 06/15/2024 Christina Monaco Pain in left foot M79.672 ; Pain in left ankle and joints of left foot M25.572 ; Bursitis of intermetatarsal bursa of left foot M77.52 ; Metatarsalgia, left foot M77.42 ; Tinea unguium B35.1 ; Pain in right toe(s) M79.674 ; Pain in left toe(s) M79.675 and Tinea pedis of both feet B35.[address] [address] 03/05/[address] [address] [facility]/15/2024 [facility] [address] [address] 09/07/2024 Christina Monaco Assessments Encounter Date Diagnosis [...] Treatment Pending Test Test Name Order Date [id number] NAIL, 6 OR MORE 06/15/2024 Next Appt Details Provider Name:Christina Monaco , 01/25/2025 03:45:00 PM, [address] [place], [address], Insurance Providers Payer Name Payer Address Payer Phone Subscriber Number Group Number Insured Name Patient Relationship to Insured Coverage Start Date Coverage End Date [facility] 65 Medicare Preferred [address] [place] [address] [id number] Kristal Ingram Self - patient is the insured Medical (General) History Medical History History ICD Code Back,Hip,and Knee pain High blood pressure C PAP Surgical History Surgery Date(Month/Year) 1989
--- OUTSIDE RECORDS SUMMARY | 2024-12-16 10:28 | XMS_ITS ---
Author Organization [facility] Address [address] [place] [address] Care Team Providers Care Supervisor Shed Workers Name Role Phone Sarah Winter Primary Care Provider Unavailab Christina Garrett Unavailable [phone] REASON FOR VISIT 09/07/24 appt Encounters Encounter Location Date [facility] [address] [place] [address] 09/07/2024 Christina Monaco Plan Of Treatment Next Appt Details Provider Name:Christina Monaco , 01/25/2025 03:45:00 PM, [address] [place], [address], Progress Notes * ALLISONPepitoAdrienneOB:1949 (74 yo F)Acc No.[id number]:09/07/2024 Patient:?Kristal COOPER :1950???Age:74 Y???Sex:Female Address[address] [place] [address] * true * Date:? Generated for Printi ng/Sun/eTransmitting on:?12/16/2024 10:27 AM EDT
== END 2024-12-16 10:01 | disposition home or self-care (01) ==
LOC: HO.HGI 09:29
PROVIDERS: PCP Internal Medicine; Visit Provider Nurse Practitioner Family
DX: K59.04 Chronic idiopathic constipation (principal); K21.9 Gastro-esophageal reflux disease without esophagitis; Z12.11 Encounter for screening for malignant neoplasm of colon
CPT/HCPCS: 99213

== ENCOUNTER → 2024-12-16 09:28 | Outpatient (BNVA) | payer BC, MEDICAID, SELFPAY | PROVIDERS: PCP Internal Medicine; Visit Provider Nurse Practitioner Family ==

== ENCOUNTER 2024-12-30 06:59 | Outpatient (REF) | payer MEDICARE, MEDICAID, SELFPAY ==
--- OUTSIDE RECORDS SUMMARY | 2024-12-30 07:03 | XMS_ITS | Patient Health Record ---
Author Organization [facility] [place] Address [address] [facility] [place] [address] Care Team Providers Care Ironworker Apprentice Shop Name Role Phone Anushkakiran Sarah Primary Care Provider Unavailab Christina Garrett Unavailable [phone] Allergies No Known Allergies Results Component Value [...] Ordered Date Performed Result Body Sit e 59878-VBFRUOX NAIL, 6 OR MORE 06/15/2024 N/A Encounters Encounter Location Date Provider Diagnosis [address] [address] 06/15/2024 Christina Monaco Pain in left foot M79.672 ; Pain in left ankle and joints of left foot M25.572 ; Bursitis of intermetatarsal bursa of left foot M77.52 ; Metatarsalgia, left foot M77.42 ; Tinea unguium B35.1 ; Pain in right toe(s) M79.674 ; Pain in left toe(s) M79.675 and Tinea pedis of both feet B35.[address] [address] 03/05/[address] [address] [facility]/20[facility] [address] [address] 09/07/2024 Christina Monaco Assessments Encounter Date Diagnosis [...] Treatment Pending Test Test Name Order Date [id number] NAIL, 6 OR MORE 06/15/2024 Next Appt Details Provider Name:Christina Monaco , 01/25/2025 03:45:00 PM, [address] [place], [address], Insurance Providers Payer Name Payer Address Payer Phone Subscriber Number Group Number Insured Name Patient Relationship to Insured Coverage Start Date Coverage End Date [facility] 65 Medicare Preferred [address] [place] [address] [id number] Kristal Ingram Self - patient is the insured Medical (General) History Medical History History ICD Code Back,Hip,and Knee pain High blood pressure C PAP Surgical History Surgery Date(Month/Year) 1989
--- OUTSIDE RECORDS SUMMARY | 2024-12-30 07:03 | XMS_ITS ---
Author Organization [facility] Address [address] [place] [address] Care Team Providers Care Interpreter For The Deaf Name Role Phone Sarah Winter Primary Care Provider Unavailab Christina Garrett Unavailable [phone] REASON FOR VISIT 09/07/24 appt Encounters Encounter Location Date Provider Diagnosis [facility] [address] [place] [address] 09/07/2024 Christina Monaco Plan Of Treatment Next Appt Details Provider Name:Christina Monaco , 01/25/2025 03:45:00 PM, [address] [place], [address], Progress Notes * ALLISONPepitoAdrienneOB:1949 (74 yo F)Acc No.[id number]:09/07/2024 Patient:?Kristal COOPER :1950???Age:74 Y???Sex:Female Address[address] [place] [address] * true * Date:? Generated for Sivai kayode/Sun/eTransmitting on:?12/30/2024 07:03 AM EDT
--- OUTSIDE RECORDS SUMMARY | 2024-12-30 07:03 | XMS_ITS ---
Author Organization [facility] Address [address] [place] [address] Care Team Providers Care Military Police Officer Name Role Phone Sarah Winter Primary Care Provider Unavailab Christina Garrett [phone] Encounters Encounter Location Date Provider Diagnosis [address] [address] 12/03/2024 Christina Monaco Plan Of Treatment Next Appt Details Provider Name:Christina Monaco , 01/25/2025 03:45:00 PM, [address] [place] [address], [address], Progress Notes * Pepito COOPERAdrienneOB:1949 (74 yo F)Acc No.[id number]:12/03/2024 Progress Note Patient:?Kristal COOPER Provider:?Christina Monaco DPM :1950???Age:74 Y???Sex:Female D ate:12/03/2024 Address[address] [place] Pcp:Sarah Winter Subjective: * Chief Complaints: * ??? * Medical History:? Objective: * Vitals:? Assessment: Plan: * Treatment: * Images: * The named appointment provid er may or may not be the originator of this progress note, and it is not deemed complete until electronically signed by the appointment provider. Sign off status: Pending * Provider:Mayco Monaco DPM Date:?2024 Generated for Asher headley/Sun/Liam on:?12/30/2024 07:02 AM EDT
--- OUTSIDE RECORDS SUMMARY | 2024-12-30 07:03 | XMS_ITS ---
Author Organization [facility] Address [address] [place] [address] Care Team Providers Care Truck Shop Mechanic Name Role Phone Sarah Winter Primary Care Provider Unavailab Christina Garrett [phone] Encounters Encounter Location Date Provider Diagnosis [address] [address] 09/07/2024 Christina Monaco Plan Of Treatment Next Appt Details Provider Name:Christina Monaco , 01/25/2025 03:45:00 PM, [address] [place] [address], [address], Progress Notes * Pepito COOPERAdrienneOB:1949 (74 yo F)Acc No.[id number]:09/07/2024 Progress Note Patient:?Kristal COOPER Provider:?Christina Monaco DPM :1950???Age:74 Y???Sex:Female D ate:09/07/2024 Address[address] Pcp:Sarah Winter Subjective: * Chief Complaints: * ??? * Medical History:? Objective: * Vitals:? Assessment: Plan: * Treatment: * Images: * The named appointment provid er may or may not be the originator of this progress note, and it is not deemed complete until electronically signed by the appointment provider. Sign off status: Pending * Provider:Mayco Monaco DPM Date:?2023 Generated for Asher headley/Sun/Liam on:?12/30/2024 07:03 AM EDT
[2024-12-30 08:12] LABS: Alanine Aminotransferase 11 U/L (0-31); Albumin Level 3.9 g/dL (3.5-5.0); Alkaline Phosphatase 74 U/L (39-117); Anion Gap 9 (12-20); Aspartate Amino Transferase 17 U/L (5-31); Bilirubin Total 0.5 mg/dL (0.0-1.0); Blood Urea Nitrogen 13 mg/dL (9-16); Calcium 9.5 mg/dL (8.4-10.2); Carbon Dioxide 27 mmol/L (22-29); Chloride 110 mmol/L (96-108); Estimated Glomerular Filt Rate > 60; Glucose Random 90 mg/dL (60-115); Potassium 4.8 mmol/L (3.3-5.1); Sodium 141 mmol/L (135-145); Total Protein 6.7 g/dL (6.5-8.0)
== END 2024-12-30 07:00 | disposition home or self-care (01) ==
LOC: HO.LAB 06:59
PROVIDERS: PCP Internal Medicine; Visit Provider Internal Medicine
DX: E78.00 Pure hypercholesterolemia, unspecified (principal); G47.33 Obstructive sleep apnea (adult) (pediatric); H81.11 Benign paroxysmal vertigo, right ear; I10 Essential (primary) hypertension
CPT/HCPCS: 36415; 80053

== ENCOUNTER 2025-01-01 13:43 | Outpatient (REF) | payer MEDICARE, MEDICAID, SELFPAY ==
--- NOTE | ~2025-01-01 | US_ITS ---
CLINICAL HISTORY: R32 - Unspecified urinary incontinence US Renal Comparison: None Findings: Right kidney normal size and echotexture, 9.0 cm length. Left kidney normal size and echotexture, 11.3 cm length. No collecting system dilatation of either kidney. Normal color Doppler. Urinary bladder is unremarkable. Prevoid volume 684 mL. Postvoid volume 524 mL. Bilateral ureteral jets are visualized. IMPRESSION: 1. Normal kidneys. 2. Large postvoid residual. This document has been electronically signed by: Gutierrez Castillo MD on 01/02/2025 08:21:59
--- OUTSIDE RECORDS SUMMARY | 2025-01-01 15:32 | XMS_ITS | Patient Health Record ---
Author Organization [facility] [place] Address [address] [facility] [place] [address] Care Team Providers Care Trust Administrator Name Role Phone Anushkakiran Sarah Primary Care Provider Unavailab Christina Garrett Unavailable [phone] Allergies No Known Allergies Results Component Value [...] Ordered Date Performed Result Body Sit e 10431-HANXVQZ NAIL, 6 OR MORE 06/15/2024 N/A Encounters Encounter Location Date Provider Diagnosis [address] [address] 06/15/2024 Christina Monaco Pain in left foot M79.672 ; Pain in left ankle and joints of left foot M25.572 ; Bursitis of intermetatarsal bursa of left foot M77.52 ; Metatarsalgia, left foot M77.42 ; Tinea unguium B35.1 ; Pain in right toe(s) M79.674 ; Pain in left toe(s) M79.675 and Tinea pedis of both feet B35.[address] [address] 03/05/[address] [address] 06/15/2024 [facility] [address] [address] 09/07/2024 Christina Monaco Assessments Encounter Date Diagnosis [...] Treatment Pending Test Test Name Order Date [id number] NAIL, 6 OR MORE 06/15/2024 Next Appt Details Provider Name:Christina Moncao , 01/25/2025 03:45:00 PM, [address] [place], [address], Insurance Providers Payer Name Payer Address Payer Phone Subscriber Number Group Number Insured Name Patient Relationship to Insured Coverage Start Date Coverage End Date [facility] 65 Medicare Preferred [address] [place] [address] [id number] Kristal Ingram Self - patient is the insured Medical (General) History Medical History History ICD Code Back,Hip,and Knee pain High blood pressure C PAP Surgical History Surgery Date(Month/Year) 1989
--- OUTSIDE RECORDS SUMMARY | 2025-01-01 15:32 | XMS_ITS ---
Author Organization [facility] Address [address] [place] [address] Care Team Providers Care Education Coordinator Name Role Phone Sarah Winter Primary Care Provider Unavailab Christina Garrett [phone] Encounters Encounter Location Date Provider Diagnosis [address] [address] 12/03/2024 Christina Monaco Plan Of Treatment Next Appt Details Provider Name:Christina Monaco , 01/25/2025 03:45:00 PM, [address] [place] [address], [address], Progress Notes * Pepito COOPERAdrienneOB:1949 (74 yo F)Acc No.[id number]:12/03/2024 Progress Note Patient:?Kristal COOPER Provider:?Christina Monaco DPM :1950???Age:74 Y???Sex:Female D ate:12/03/2024 Address[address] [place] Pcp:Sarah Winter Subjective: * Chief Complaints: * ??? * Medical History:? Objective: * Vitals:? Assessment: Plan: * Treatment: * Images: * The named appointment provid er may or may not be the originator of this progress note, and it is not deemed complete until electronically signed by the appointment provider. Sign off status: Pending * Provider:Mayco Monaco DPM Date:?2024 Generated for Asher headley/Sun/Liam on:?01/01/2025 03:31 PM EDT
--- OUTSIDE RECORDS SUMMARY | 2025-01-01 15:32 | XMS_ITS ---
Author Organization [facility] Address [address] [place] [address] Care Team Providers Care Industrial Management Teacher Name Role Phone Sarah Winter Primary Care Provider Unavailab Christina Garrett [phone] Encounters Encounter Location Date Provider Diagnosis [address] [address] 09/07/2024 Christina Monaco Plan Of Treatment Next Appt Details Provider Name:Christina Monaco , 01/25/2025 03:45:00 PM, [address] [place] [address], [address], Progress Notes * Pepito COOPERAdrienneOB:1949 (74 yo F)Acc No.[id number]:09/07/2024 Progress Note Patient:?Kristal COOPER Provider:?Chrsitina Monaco DPM :1950???Age:74 Y???Sex:Female D ate:09/07/2024 Address[address] Pcp:Sarah Winter Subjective: * Chief Complaints: * ??? * Medical History:? Objective: * Vitals:? Assessment: Plan: * Treatment: * Images: * The named appointment provid er may or may not be the originator of this progress note, and it is not deemed complete until electronically signed by the appointment provider. Sign off status: Pending * Provider:Mayco Monaco DPM Date:?2023 Generated for Asher headley/Sun/Liam on:?01/01/2025 03:31 PM EDT
--- OUTSIDE RECORDS SUMMARY | 2025-01-01 15:32 | XMS_ITS ---
Author Organization [facility] Address [address] [place] [address] Care Team Providers Care Rural Service Engineer Name Role Phone Sarah Winter Primary Care Provider Unavailab Christina Garrett Unavailable [phone] REASON FOR VISIT 09/07/24 appt Encounters Encounter Location Date Provider [facility] [address] [place] [address] 09/07/2024 Christina Monaco Plan Of Treatment Next Appt Details Provider Name:Christina Monaco , 01/25/2025 03:45:00 PM, [address] [place], [address], Progress Notes * ALLISONPepitoAdrienneOB:1949 (74 yo F)Acc No.[id number]:09/07/2024 Patient:?Kristal COOPER :1950???Age:74 Y???Sex:Female Address:[address] [place] [address] * true * Date:? Generated for Printi ng/Sun/eTransmitting on:?01/01/2025 03:32 PM EDT
== END 2025-01-01 13:44 | disposition home or self-care (01) ==
LOC: HO.US 13:43
PROVIDERS: PCP Internal Medicine; Visit Provider Urology
DX: R32 Unspecified urinary incontinence (principal); R39.15 Urgency of urination; E66.9 Obesity, unspecified
CPT/HCPCS: 76770

== ENCOUNTER → 2025-01-01 13:45 | Outpatient (BNV) | payer MEDICARE, MEDICAID, SELFPAY | PROVIDERS: PCP Internal Medicine; Visit Provider Specialist | DX: R33.8 Other retention of urine (principal) | CPT/HCPCS: 76770 ==

== ENCOUNTER 2025-01-21 06:14 | Day surgery (SDC) | payer MEDICARE, OTHER, SELFPAY ==
--- OUTSIDE RECORDS SUMMARY | 2024-12-09 13:19 | XMS_ITS ---
Author Organization [facility] Address [address] [place] [address] Care Team Providers Care Freight Flow Sales Leader Name Role Phone Sarah Winter Primary Care Provider Unavailab Christina Garrett [phone] Encounters Encounter Location Date Provider Diagnosis [address] [address] 09/07/2024 Christina Monaco Plan Of Treatment Next Appt Details Provider Name:Christina Monaco , 01/25/2025 03:45:00 PM, [address] [place] [address], [address], Progress Notes * Pepito COOPERAdrienneOB:1949 (74 yo F)Acc No.[id number]:09/07/2024 Progress Note Patient:?Kristal COOPER Provider:?Christina Monaco DPM :1950???Age:74 Y???Sex:Female D ate:09/07/2024 [address] Pcp:Sarah Winter Subjective: * Chief Complaints: * ??? * Medical History:? Objective: * Vitals:? Assessment: Plan: * Treatment: * Images: * The named appointment provid er may or may not be the originator of this progress note, and it is not deemed complete until electronically signed by the appointment provider. Sign off status: Pending * Provider:Mayco Monaco DPM Date:?2023 Generated for Asher headley/Sun/Liam on:?12/09/2024 01:19 PM EDT
--- OUTSIDE RECORDS SUMMARY | 2024-12-09 13:19 | XMS_ITS ---
Author Organization [facility] Address [address] [place] [address] Care Team Providers Care Boiler Cleaner Name Role Phone Sarah Winter Primary Care Provider Unavailab Christina Garrett [phone] Encounters Encounter Location Date Provider Diagnosis [address] [address] 12/03/2024 Christina Monaco Plan Of Treatment Next Appt Details Provider Name:Christina Monaco , 01/25/2025 03:45:00 PM, [address] [place] [address], [address], Progress Notes * Pepito COOPERAdrienneOB:1949 (74 yo F)Acc No.[id number]:12/03/2024 Progress Note Patient:?Kristal COOPER Provider:?Christina Monaco DPM :1950???Age:74 Y???Sex:Female D ate:12/03/2024 [address] Pcp:Sarah Winter Subjective: * Chief Complaints: * ??? * Medical History:? Objective: * Vitals:? Assessment: Plan: * Treatment: * Images: * The named appointment provid er may or may not be the originator of this progress note, and it is not deemed complete until electronically signed by the appointment provider. Sign off status: Pending * Provider:Mayco Monaco DPM Date:?2024 Generated for Asher headley/Sun/Liam on:?12/09/2024 01:18 PM EDT
--- OUTSIDE RECORDS SUMMARY | 2024-12-09 13:19 | XMS_ITS ---
Author Organization [facility] Address [address] [place] [address] Care Team Providers Care Financial Aid Manager Name Role Phone Sarah Winter Primary Care Provider Unavailab Christina Garrett Unavailable [phone] REASON FOR VISIT 09/07/24 appt Encounters Encounter Location Date [facility] [address] [place] [address] 09/07/2024 Christina Monaco Plan Of Treatment Next Appt Details Provider Name:Christina Monaco , 01/25/2025 03:45:00 PM, [address] [place], [address], Progress Notes * ALLISONPepitoAdrienneOB:1949 (74 yo F)Acc No.[id number]:09/07/2024 Patient:?Kristal COOPER :1950???Age:74 Y???Sex:Female Address[address] [place] [address] * true * Date:? Generated for Printi ng/Sun/eTransmitting on:?12/09/2024 01:19 PM EDT
--- OUTSIDE RECORDS SUMMARY | 2024-12-09 13:19 | XMS_ITS | Patient Health Record ---
Author Organization [facility] Address [address] [place] [address] Care Team Providers Care Currency Counter Name Role Phone Anushkakiran Sarah Primary Care Provider Unavailab Christina Garrett Unavailable [phone] Allergies No Known Allergies Results Component Value Reference Range Notes X ray : Foot, left 3V Reviewed date:06/15/2024 12:15:32 PM Interpretation:See Examination above Performing Lab: Notes/Report: See Examination above Reason For Referral No Information Medications Medication SIG (Take, Route, Frequency, Duration) Notes Start Date End Date Status Famotidine 40 MG as directed A ctive Losartan Potassium 50 MG as directed Active ZyrTEC Active Ciclopirox Olamine 0.77 % 1 application Externally Twice a day to feet including between the toes for 30 days Active Atorvastatin Calcium 20 MG 1 tablet Oral ly Once a day Active Fluticasone Furoate 27.5 MCG/SPRAY 2 sprays (1 spray in each nostril) Nasally Once a day Active Social History Tobacco Use: Social History Observation Description Date Details (start date - stop date) Never Smoker NA - NA Tobacco Use/Smoking Question Answer Notes Are you a: nonsmoker Additional Findings: Tobacco Non-User Current no n-smoker Alcohol Screen Question Answer Notes Did you have a drink containing alcohol in the p ast year? No Points 0 Interpretation Negative Tobacco use other than smoking: Question Answer Notes Are you an other tobacco user? No Vital Signs Height 5 ft 4 in in 06/15/2024 Weight 264 lbs lbs 06/15/2024 BMI 45.31 kg/m2 06/15/2024 Procedures Procedure Date Ordered Date Performed Result Body Sit e 11647-[id number] NAIL, 6 OR MORE 06/15/2024 N/A Encounters Encounter Location Date Provider Diagnosis [address] [address] 06/15/2024 Christina Monaco Pain in left foot M79.672 ; Pain in left ankle and joints of left foot M25.572 ; Bursitis of intermetatarsal bursa of left foot M77.52 ; Metatarsalgia, left foot M77.42 ; Tinea unguium B35.1 ; Pain in right toe(s) M79.674 ; Pain in left toe(s) M79.675 and Tinea pedis of both feet B35.[address] [address] 03/05/[address] [address] [facility] [address] [address] 09/07/2024 Christina Monaco Assessments Encounter Date Diagnosis (ICD Code) Assessment Notes Treatment Notes Treatment Clinical Notes Section Notes 06/15/2024 Pain in left ankle and joints of left foot (ICD-10 - M25.572) 06/15/2024 Pain in left foot (ICD-10 - M79.672) 06/15/2024 Bursitis of intermetatarsal bursa of left foot (ICD-10 - M77.52) 06/15/2024 Metatarsalgia, left foot (ICD-10 - M77.42) 06/15/2024 Tinea unguium (ICD-10 - B35.1) Rx Formula #7 Patient Educated with: FUNGUS NAIL INFECTIONS.pd f (FUNGUS NAIL INFECTIONS.pd f) 06/15/2024 Pain in right toe(s) (ICD-10 - M79.674) 06/15/2024 Pain in left toe(s) (ICD-10 - M79.675) 06/15/2024 Tinea pedis of both feet (ICD-10 - B35.3) Patient Educated with: ATHELETE .pdf (ATHELETE .pdf) Plan Of Treatment Pending Test Test Name Order Date [id number] NAIL, 6 OR MORE 06/15/2024 Next Appt Details Provider Name:Christina Monaco , 01/25/2025 03:45:00 PM, [address] [place], [address], Insurance Providers Payer Name Payer Address Payer Phone Subscriber Number Group Number Insured Name Patient Relationship to Insured Coverage Start Date Coverage End Date [facility] 65 Medicare Preferred [address] [place] [address] [phone] [id number] Kristal Ingram Self - patient is the insured Medical (General) History Medical History History ICD Code Back,Hip,and Knee pain High blood pressure C PAP Surgical History Surgery Date(Month/Year) 1989
[2025-01-19 14:01] VITALS: BMI 46.6
--- NOTE | 2025-01-20 09:42 | P.CONAN_ITS ---
Documented by User: Taylor Collins NP 01/20/25 09:43 HPI - Anesthesia Eval Consult details Narrative: 74yo F for Upper Endoscopy and Colonoscopy BMI 46 PMFSH Active Problems Active Problems: All Active Problems Obesity (Acute) Urinary urgency (Acute) Urinary incontinence (Acute) Right ankle pain (Acute) Osteoarthritis of left knee (Acute) History of arthroscopy of right knee (Acute) Osteoarthritis of right knee (Acute) Past Medical History Medical History (Updated 01/19/25 @ 13:59 by Elizabeth Roe RN) HTN (hypertension) GERD (gastroesophageal reflux disease) Osteoarthritis of right knee Hypercholesteremia Family History Family History Father Stomach cancer Paternal Grandfather Esophageal cancer Brother Diabetes Surgical History Surgical History History of esophagogastroduodenoscopy (EGD) Hx of colonoscopy Hx of knee surgery Hx of hysterectomy Social History Social History Household Members: Spouse Alcohol intake: never Patient Tobacco Use Status: Never used Tobacco Use of substances other than those prescribed or required for medical reasons: No Have you been hit, kicked, punched, or otherwise hurt by someone within the past year? If so, by whom?: No Are you DNR?: No Advance Directives: No Advance Directives Information Provided: Yes Patient : No Meds Allergies Allergy/AdvReac Type Severity Reaction Status Date / Time No Known Allergies Allergy Verified 12/14/24 14:41 [No Known Allergies*] Home Medications ?Medication ?Instructions ?Recorded ?Confirmed ?Last Taken ?Type atorvastatin 20 mg tablet 1 tab PO BEDTIME 09/14/20 01/19/25 01/14/25 History cetirizine 10 mg tablet 1 tab PO DAILY 09/14/20 01/19/25 01/14/25 History fluticasone propionate 50 1 spray intranasal DAILY 04/19/23 01/19/25 01/14/25 History mcg/actuation nasal spray,suspension famotidine 40 mg tablet 40 mg PO DAILY 10/01/23 01/19/25 01/14/25 History losartan 50 mg tablet 50 mg PO DAILY 12/23/23 01/19/25 01/14/25 History naproxen 500 mg tablet 500 mg PO BID PRN Pain 07/29/24 01/19/25 12/21/24 History bisacodyl 5 mg tablet,delayed 10 mg PO BEDTIME PRN Constipation 12/16/24 01/14/25 History release (Dulcolax (bisacodyl)) cyanocobalamin (vitamin B-12) 100 100 mcg PO DAILY 12/16/24 01/19/25 01/14/25 History mcg tablet docusate sodium 100 mg capsule 200 mg PO BEDTIME PRN Constipation 12/16/24 01/19/25 01/14/25 History omega-3 fatty acids 500 mg capsule 500 mg PO DAILY 12/16/24 01/19/25 01/14/25 History omeprazole 20 mg capsule,delayed 20 mg PO DAILY 12/16/24 01/19/25 01/14/25 History release Exam Height,Weight and Vital Signs: Height 5 ft 3 in Weight 119.295 kg Assessment and Plan Assessment Anesthesia Assessment: Chart Reviewed Documented by User: Juan Lei MD 01/21/25 07:32 [facility] Past Medical History Medical History (Updated 01/19/25 @ 13:59 by Elizabeth Roe RN) HTN (hypertension) GERD (gastroesophageal reflux disease) Osteoarthritis of right knee Hypercholesteremia Family History Family History Father Stomach cancer Paternal Grandfather Esophageal cancer Brother Diabetes Family history of problems with anesthesia: No Surgical History Surgical History History of esophagogastroduodenoscopy (EGD) Hx of colonoscopy Hx of knee surgery Hx of hysterectomy History of Problems with Anesthesia: No Social History Social History Household Members: Spouse Alcohol intake: never Patient Tobacco Use Status: Never used Tobacco Use of substances other than those prescribed or required for medical reasons: No Have you been hit, kicked, punched, or otherwise hurt by someone within the past year? If so, by whom?: No Are you DNR?: No Advance Directives: No Advance Directives Information Provided: Yes Patient : No Meds Allergies Allergy/AdvReac Type Severity Reaction Status Date / Time No Known Allergies Allergy Verified 12/14/24 14:41 [No Known Allergies*] Home Medications ?Medication ?Instructions ?Recorded ?Confirmed ?Last Taken ?Type atorvastatin 20 mg tablet 1 tab PO BEDTIME 09/14/20 01/19/25 01/14/25 History cetirizine 10 mg tablet 1 tab PO DAILY 09/14/20 01/19/25 01/14/25 History fluticasone propionate 50 1 spray intranasal DAILY 04/19/23 01/19/25 01/14/25 History mcg/actuation nasal spray,suspension famotidine 40 mg tablet 40 mg PO DAILY 10/01/23 01/19/25 01/14/25 History losartan 50 mg tablet 50 mg PO DAILY 12/23/23 01/19/25 01/14/25 History naproxen 500 mg tablet 500 mg PO BID PRN Pain 07/29/24 01/19/25 12/21/24 History bisacodyl 5 mg tablet,delayed 10 mg PO BEDTIME PRN Constipation 12/16/24 01/14/25 History release (Dulcolax (bisacodyl)) cyanocobalamin (vitamin B-12) 100 100 mcg PO DAILY 12/16/24 01/19/25 01/14/25 History mcg tablet docusate sodium 100 mg capsule 200 mg PO BEDTIME PRN Constipation 12/16/24 01/19/25 01/14/25 History omega-3 fatty acids 500 mg capsule 500 mg PO DAILY 12/16/24 01/19/25 01/14/25 History omeprazole 20 mg capsule,delayed 20 mg PO DAILY 12/16/24 01/19/25 01/14/25 History release Exam Airway Mallampati Class: II TM Dist: <=3cm Neck ROM: Full Loose/Missing/Broken Teeth: No Heart: ok Lungs: ok Assessment and Plan Assessment Anesthesia Assessment: Anesthesia Plan Discussed Final Anesthetic Review Family History of Problems with Anesthesia: No History of Problems with Anesthesia: No NPO: Yes ASA Class: III Final Preanesthetic Review: No Changes in Pt Med Stat, Meds/Allgs Chart Rev iewed, Consent Obtained/Reviewed and Anes Risks/Benef Reviewed Patient Risk: Intermediate Procedure Risk: Intermediate Anesthetic Plan Anesthetic Plan: Agree w/ Assess. and Plan and TIVA Disposition: Standard PACU
[2025-01-21 06:22] VITALS: BMI 47.2
--- NOTE | 2025-01-21 06:45 | MHC.SHP ---
Pre-Procedural Eval Section A - 24 Hr Update-Section A only Date of Service: 01/21/25 Section B - Complete if H&P > 30 days Chief Complaint: Left lower quadrant pain,gerd, Relevant Family History (Specify if Yes): Yes Relevant Social History: None Present Medications: see Short Stay Collaborative assessment Medical History: Significant History ( HTN (hypertension) GERD (gastroesophageal reflux disease) Osteoarthritis of right knee Hypercholesteremia) History of Previous Operations: Relevant previous surgery/procedure and date(s) (History of esophagogastroduodenoscopy (EGD) Hx of colonoscopy Hx of knee surgery Hx of hysterectomy) Allergies: Allergies Allergy/AdvReac Type Severity Reaction Status Date / Time No Known Allergies Allergy Verified 12/14/24 14:41 [No Known Allergies*] Review of Systems Sugical H&P ROS: Negative: Constitution, Cardiovascular, Respiratory, Neurological, Psychiatric, Hem-Onc, Allergic/Immunologic, Gastrointestinal, Genitourinary, Musculoskeletal, Integumentary, Endocrine and Eyes/Ears/Nose/Throat Exam Surgical H&P Exam: Normal: HEENT, Normal: Heart, Normal: Lungs, Normal: Extremities, Normal: Abdomen, Normal: Skin and Normal: Neurological Plan Diagnosis/Plan: Unchanged I have reviewed the history and physical and performed a pertinent physical examination on my patient. No changes have occurred unless specified. Time Spent With Patient Time: Total time managing care of this patient today ____ minutes.
[2025-01-21] MEDS: Lactated Ringers 1,000 ML 100 ML IVCONT (06:47)
[2025-01-21 06:48] VITALS: BP 135/77; PULSE 81; RESP 16; TEMP 36.1; O2SAT 95
--- NOTE | 2025-01-21 07:41 | HO.OPN-COLON ---
Colonoscopy Operative Note Operative Note Date of Service: 01/21/25 Narrative: Operative Information Procedure Description: EGD, Colonoscopy Indication: GERD, LLQ pain Anesthesia: MAC FLEXIBLE TRANSORAL UPPER GASTROINTESTINAL ENDOSCOPY AND COLONOSCOPY PROCEDURE NOTE UPPER ENDOSCOPY Consent: Indications for the procedure and potential complications of bleeding, perforation, reaction to medications and missed diagnosis were discussed with the patient and informed consent was obtained. Instrument: Olympus GIF H 190 J mid size upper endoscope Monitoring: Vital signs and clinical assessment, continuous EKG monitoring, Pulse oximetry, Carbon Dioxide monitoring and blood pressure monitoring were done throughout the procedure. Procedure: The patient was placed in the left lateral decubitis position and pre-procedure medications were administered and a bite block was placed. The endoscope was inserted into the mouth and advanced under direct vision to the third part of duodenum. A careful inspection was made as the upper endoscope was withdrawn including a retroflexed examination of the proximal stomach; Findings and interventions are described below. Findings: Larynx:normal Esophagus: GE junction at 38 cm, diaphragm hiatus at 38 cm, mild esophagitis at GEJ Stomach: patchy erythema. Biopsies were obtained. Grade 2 flap valve on retroflexed examination of the cardia. Duodenum: mild bulbar duodenitis Intervention: Biopsies as noted above, COLONOSCOPY Instrument: Olympus variable stiffness pediatric scope 190L Colonoscopy Monitoring: Vital signs and clinical assessment, continuous EKG monitoring, Pulse oximetry, Carbon Dioxide monitoring and blood pressure monitoring were done throughout the procedure. Colon withdrawal time was 10 minutes. Procedure: The patient was placed in the left lateral decubitis position and pre-procedure medications were administered. After a digital rectal examination of the ano-rectum, the video colonoscope was inserted into the rectum and advanced through the colon to the cecum/TI. The colonoscope was slowly withdrawn in a retrograde panoramic fashion and the colon mucosa was carefully examined including a retroflexed view of the rectum. Findings and interventions are described below. Procedure Difficulty:moderate--pressure applied Findings: Terminal Ileum- superficial intubation- nml Cecum:normal Ascending Colon: normal Transverse Colon -normal Descending Colon:normal Sigmoid Colon: moderate diverticulosis Rectum: Retroflexion with small internal hemorrhoids, grade I Anorectum - normal Colon preparation: [place] Bowel Preparation Scale Right colon; 1-2 Transverse colon: 2 Left colon; 2 (0 = Unprepared colon segment with mucosa not seen due to solid stool that cannot be cleared. 1 = Portion of mucosa of the colon segment seen, but other areas of the colon segment not well seen due to staining, residual stool and/or opaque liquid. 2 = Minor amount of residual staining, small fragments of stool and/or opaque liquid, but mucosa of colon segment seen well. 3 = Entire mucosa of colon segment seen well with no residual staining, small fragments of stool or opaque liquid) Impression and Post Procedure Diagnosis: Endoscopy Findings: duodenitis gastritis mild esophagitis Colonoscopy Findings: diverticulosis internal hemorrhoids Plan: Await Pathology results Repeat Colonoscopy in 5 years due to some areas of fair prep on the right or earlier if clinically indicated High fiber diet leaflet avoid straining at stool, epsom salts and sitz bath, anusol supps or cream Above findings were reviewed with the patient and relevant handouts were provided if indicated.
[2025-01-21 08:18] VITALS: BP 113/67; PULSE 72; RESP 20; TEMP 36.1; O2SAT 94
[2025-01-21 08:31] VITALS: BP 131/62; PULSE 67; RESP 17; TEMP 36.5; O2SAT 97
== END 2025-01-21 08:57 | disposition home or self-care (01) ==
PROVIDERS: PCP Internal Medicine; Visit Provider Internal Medicine Gastroenterology
PROC: (CPT 43239; principal; 2025-01-21 07:30)
DX: K57.30 Diverticulosis of large intestine without perforation or abscess without bleeding (principal); K64.0 First degree hemorrhoids; R10.32 Left lower quadrant pain; K29.60 Other gastritis without bleeding; K29.80 Duodenitis without bleeding; K21.00 Gastro-esophageal reflux disease with esophagitis, without bleeding; E78.00 Pure hypercholesterolemia, unspecified; E66.9 Obesity, unspecified; Z68.42 Body mass index [BMI] 45.0-49.9, adult; Z79.02 Long term (current) use of antithrombotics/antiplatelets; Z79.899 Other long term (current) drug therapy
CPT/HCPCS: 43239; G0121; 88305; 88313; 88342; J2003; J2704; J3010

== ENCOUNTER → 2025-01-21 06:14 | Outpatient (BNV) | payer MEDICARE, SELFPAY | PROVIDERS: PCP Internal Medicine; Visit Provider Internal Medicine Gastroenterology | DX: K21.00 Gastro-esophageal reflux disease with esophagitis, without bleeding (principal); K29.80 Duodenitis without bleeding; K29.70 Gastritis, unspecified, without bleeding; K57.30 Diverticulosis of large intestine without perforation or abscess without bleeding; K64.0 First degree hemorrhoids | CPT/HCPCS: 43239; 45378 ==

== ENCOUNTER 2025-02-02 08:37 | Outpatient (AMB) | payer BC, MEDICAID, SELFPAY ==
--- NOTE | 2025-02-02 08:50 | A.OFFVIS_ITS ---
Vital Signs 02/02/25 08:51 Height 5 ft 3 in Weight 265 lb BMI 46.9 BP 138/62 Blood Pressure Location Rt brachial Position Sitting Pulse 68 Pulse Source Pulse Oximeter Pulse Oximetry (%) 93 Oxygen Delivery Method Room Air Intake Visit Reasons: s/p colo egd covarrubias Intake Note: ESTABLISHED PATIENT for mgmt of chronic abd pain. S/P duo FUV. Chief Complaint; Pt reports chronic abd pain still present occasionally, RUQ, pt also comments that she is not always consistent with remembering to take some of her medications. When she does take them they are helpful. Pt denies any additional sx or concerns at this time. 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 What to expect before during and after procedure discussed with patient. Patient was encouraged to increase fluid intake and activity to promote better bowel motility. Take Dulcolax daily. We have discussed this in the past about making sure that she empties her bowels better. Pain in her left lower and left upper quadrant better after moving her bowels. Stressed the importance of good bowel prep day before procedure. Patient will upper endoscopy to rule out gastritis, duodenitis, esophagitis,. Continue omeprazole daily. Avoid dietary triggers and late night snacking. Staying upright for minimum 3 hours after meals discussed with patient. Medications New bisacodyl (Dulcolax (bisacodyl)) Start taking 2 tablet every night 7 days before the procedure and 1 day before procedure take 4 tablets at noon time followed by MiraLax prep 10 mg (2 x 5 mg) PO BEDTIME 16 tabs 0RF Z12.11 polyethylene glycol 3350 (Miralax) As directed by gastroenterology department at [facility] 238 grams PO ONCE 238 grams 0RF Z12.11 UPPER ENDOSCOPY AND COLONOSCOPY Findings: Larynx:normal Esophagus: GE junction at 38 cm, diaphragm hiatus at 38 cm, mild esophagitis at GEJ Stomach: patchy erythema. Biopsies were obtained. Grade 2 flap valve on retroflexed examination of the cardia. Duodenum: mild bulbar duodenitis Intervention: Biopsies as noted above, COLONOSCOPY Instrument: Olympus variable stiffness pediatric scope 190L Colonoscopy Monitoring: Vital signs and clinical assessment, continuous EKG monitoring, Pulse oximetry, Carbon Dioxide monitoring and blood pressure monitoring were done throughout the procedure. Colon withdrawal time was 10 minutes. Procedure: The patient was placed in the left lateral decubitis position and pre-procedure medications were administered. After a digital rectal examination of the ano-rectum, the video colonoscope was inserted into the rectum and advanced through the colon to the cecum/TI. The colonoscope was slowly withdrawn in a retrograde panoramic fashion and the colon mucosa was carefully examined including a retroflexed view of the rectum. Findings and interventions are described below. Procedure Difficulty:moderate--pressure applied Findings: Terminal Ileum- superficial intubation- nml Cecum:normal Ascending Colon: normal Transverse Colon -normal Descending Colon:normal Sigmoid Colon: moderate diverticulosis Rectum: Retroflexion with small internal hemorrhoids, grade I Anorectum - normal Colon preparation: Hartsel Bowel Preparation Scale Right colon; 1-2 Transverse colon: 2 Left colon; 2 (0 = Unprepared colon segment with mucosa not seen due to solid stool that cannot be cleared. 1 = Portion of mucosa of the colon segment seen, but other areas of the colon segment not well seen due to staining, residual stool and/or opaque liquid. 2 = Minor amount of residual staining, small fragments of stool and/or opaque liquid, but mucosa of colon segment seen well. 3 = Entire mucosa of colon segment seen well with no residual staining, small fragments of stool or opaque liquid) Impression and Post Procedure Diagnosis: Endoscopy Findings: duodenitis gastritis mild esophagitis Colonoscopy Findings: diverticulosis internal hemorrhoids Plan: Await Pathology results Repeat Colonoscopy in 5 years due to some areas of fair prep on the right or earlier if clinically indicated High fiber diet leaflet avoid straining at stool, epsom salts and sitz bath, anusol supps or cream PATHOLOGY Diagnosis A. Duodenum, biopsy: Chronic inactive duodenitis. B. Stomach, biopsy: Antral-type and oxyntic mucosa with mild chronic inactive inflammation; no Helicobacter organisms seen TODAY'S VISIT Patient is here today for follow-up and to discuss upper endoscopy and colonoscopy results. Patient denies any ill effects from the prep, anesthesia or procedure itself. Upper endoscopy and colonoscopy discussed with patient. Patient had no polyps, however had suboptimal prep and recommendation was to return for colorectal screening in 5 years. Upper endoscopy chronic inactive duodenitis and mild chronic inactive inflammation in her stomach, normal esophagus. Moderate diverticulosis seen in sigmoid colon. Patient continues to have a left lower quadrant pain denies fever or chills. Denies any mucus in her stools. Reports constipation. Patient is taking omeprazole in the morning and famotidine at bedtime. Patient admits not taking Linzess or Dulcolax regularly. Patient reports constant and chronic left lower quadrant pain, history of epiploic appendagitis. Patient does not report tenderness in that area. [facility] Medical History HTN (hypertension) GERD (gastroesophageal reflux disease) Osteoarthritis of right knee Hypercholesteremia Surgical History History of esophagogastroduodenoscopy (EGD) Hx of colonoscopy Hx of knee surgery Hx of hysterectomy Family History Father Stomach cancer Paternal Grandfather Esophageal cancer Brother Diabetes Social History Household Members: Spouse Alcohol intake: never Patient Tobacco Use Status: Never used Tobacco Review of Systems Const Denies weight gain and Denies weight loss ENT Reports no additional complaints, Denies dysphagia and Denies odynophagia Card Reports no additional complaints Resp Reports no additional complaints GI Reports abdominal pain (LLQ), Denies belching, Denies melena, Reports bloating, Denies change in bowel habits, Reports constipation (Occasional), Denies dysphagia, Denies excessive flatus, Denies early satiety, Denies dyspepsia, Denies heartburn, Denies diarrhea, Denies loose stools, Denies nausea, Denies odynophagia and Denies vomiting Reports no additional complaints Musc Reports no additional complaints Neuro Reports no additional complaints Psych Reports no additional complaints Endo Reports no additional complaints Physical Exam Vital Signs: Last Vital Signs Pulse 68 02/02/25 08:51 BP 138/62 02/02/25 08:51 Pulse Ox 93 02/02/25 08:51 Oxygen Delivery Method Room Air 02/02/25 08:51 BMI result Body Mass Index 46.9 Const General: healthy appearing and no acute distress Nutritional Appearance: obese Orientation/consciousness: patient oriented x3 Resp Effort & Inspection: normal respiratory effort, able to speak in complete sentences, no tracheal deviation and symmetric chest movement Auscultation: clear to auscultation bilaterally Cardio Rate: regular rate GI Inspection: Yes normal to inspection, No distended and Yes obesity Palpation (GI): Soft to palpation, not firm, nontender and No hepatosplenomegaly present Auscultation: normal bowel sounds General: Yes no CVA tenderness Back/Spine/Pelvis Back: no CVA tenderness Skin General skin exam: elasticity normal, turgor normal and dry skin Neuro General: patient oriented x3 Psych Appearance: grossly normal Mental Status: mental status grossly normal Assessment & Plan Assessment & Plan (1) Abdominal pain: Code(s): R10.9 - Unspecified abdominal pain Qualifiers: Abdominal location: left lower quadrant Qualified Code(s): R10.32 - Left lower quadrant pain (2) Chronic idiopathic constipation: Code(s): K59.04 - Chronic idiopathic constipation (3) GERD (gastroesophageal reflux disease): Code(s): K21.9 - Gastro-esophageal reflux disease without esophagitis Qualifiers: Esophagitis presence: without esophagitis Qualified Code(s): K21.9 - Gastro-esophageal reflux disease without esophagitis (4) LUQ abdominal pain: Code(s): R10.12 - Left upper quadrant pain (5) Screen for colon cancer: Code(s): Z12.11 - Encounter for screening for malignant neoplasm of colon Plan Patient continues with left lower quadrant pain, moderate diverticulosis seen. Patient will be sent for CT scan to rule out diverticulitis or recurrence of epiploic appendagitis. Patient will take 2 Dulcolax every evening. Increase fluid intake and activity to promote better bowel motility. Continue omeprazole in the morning and famotidine at bedtime. Patient will also increase fiber in her diet. Patient will return in 3 months, sooner on as needed basis. She is agreeable to this plan and verbalizes understanding of instructions. She was given the opportunity ask questions and all questions answered. Thank you for allowing me to participate in her care Orders: Orders CT abdomen pelvis w IV con Today R10.32 - Left lower quadrant pain, R10.9 - Unspecified abdominal pain Creatinine Today R10.11 - Right upper quadrant pain Blood Urea Nitrogen Today R10.11 - Right upper quadrant pain Medications: New omeprazole 20 mg PO DAILY 90 caps 3RF K21.9 - Gastro-esophageal reflux disease without esophagitis Coding Level of Care Code Est Pt Level 4 (11527) Complex EM visit Add On G2211 Diagnoses Left lower quadrant abdominal pain R10.32 Abdominal location: left lower quadrant Chronic idiopathic constipation K59.04 Gastroesophageal reflux disease without esophagitis K21.9 Esophagitis presence: without esophagitis LUQ abdominal pain R10.12 Screen for colon cancer Z12.11 Time Spent (min) 35 Comment 25 minutes spent with patient and additional 10 minutes spent reviewing her records
[2025-02-02 08:51] VITALS: BP 138/62; PULSE 68; O2SAT 93; BMI 46.9
--- OUTSIDE RECORDS SUMMARY | 2025-02-02 09:03 | XMS_ITS | Patient Health Record ---
Author Organization [facility] [place] Address [address] [place] [address] Care Team Providers Care Bill Peddler Name Role Phone Anushakkiran Sarah Primary Care Provider Unavailab Christina Garrett Unavailable [phone] Allergies No Known Allergies Results Component Value [...] Ordered Date Performed Result Body Sit e 48987-XIGIHWP NAIL, 6 OR MORE 06/15/2024 N/A Encounters Encounter Location Date Provider Diagnosis [address] [address] 06/15/2024 Christina Monaco Pain in left foot M79.672 ; Pain in left ankle and joints of left foot M25.572 ; Bursitis of intermetatarsal bursa of left foot M77.52 ; Metatarsalgia, left foot M77.42 ; Tinea unguium B35.1 ; Pain in right toe(s) M79.674 ; Pain in left toe(s) M79.675 and Tinea pedis of both feet B35.[address] [address] 03/05/[address] [address] [facility]20[facility] [address] [address] [facility] [address] 01/21/2025 Christina Monaco Assessments Encounter Date Diagnosis (ICD [...] Treatment Pending Test Test Name Order Date [id number] NAIL, 6 OR MORE 06/15/2024 Insurance Providers Payer Name Payer Address Payer Phone Subscriber Number Group Number Insured Name Patient Relationship to Insured Coverage Start Date Coverage End Date BlueCare 65 Medicare [address] [place] [address] [id number] Kristal Ingram Self - patient is the insured Medical (General) History Medical History History ICD Code Back,Hip,and Knee pain High blood pressure C PAP Surgical History Surgery Date(Month/Year) 1989
--- OUTSIDE RECORDS SUMMARY | 2025-02-02 09:03 | XMS_ITS ---
Author Organization [facility] Address [address] [place] [address] Care Team Providers Care Store Lead Name Role Phone AnushkaSarah beck Primary Care Provider Unavailab Christina Garrett Unavailable [phone] REASON FOR VISIT cx appt 01/25/25 Encounters Encounter Location Date Provider Diagnosis [facility] [address] [place] [address] 01/21/2025 Christina Black Plan Of Treatment No Information Progress Notes * Ashlie COOPEROB:1949 (74 yo F)Acc No.[id number]:01/21/2025 Patient:?Kristal COOPER :1950???Age:74 Y???Sex:Female Address:[address] [place] [address] * true * Date:? Generated for Sivai kayode/Sun/eTransmitting on:?02/02/2025 09:03 AM EDT
--- OUTSIDE RECORDS SUMMARY | 2025-02-02 09:04 | XMS_ITS ---
Author Organization [facility] Address [address] [place] [address] Care Team Providers Care Hoop Flaring Machine Operator Helper Name Role Phone Sarah Winter Primary Care Provider Unavailab Christina Garrett [phone] Encounters Encounter Location Date Provider Diagnosis [facility] [address] [place] [address] 01/25/2025 Christina Monaco Plan Of Treatment No Information Progress Notes * Ashlie COOPEROB:1949 (75 yo F)Acc No.[id number]:01/25/2025 Progress Note Patient:Kristal BERRIOS Provider:?Christina Monaco DPM :1950???Age:74 Y???Sex:Female D ate:01/25/2025 Address:[address] [id number] Pcp:Sarah Winter Subjective: * Chief Complaints: * ??? * Medical History:? Objective: * Vitals:? Assessment: Plan: * Treatment: * Images: * The named appointment provid er may or may not be the originator of this progress note, and it is not deemed complete until electronically signed by the appointment provider. Sign off status: Pending * Provider:?Christina Monaco DPM Date:?2024 Generated for Asher headley/Faxing/eTransmitting on:?02/02/2025 09:04 AM EDT
--- OUTSIDE RECORDS SUMMARY | 2025-02-02 09:04 | XMS_ITS ---
Author Organization [facility] Address [address] [place] [address] Care Team Providers Care Electrical Worker Name Role Phone Sarah Winter Primary Care Provider Unavailab Christina Garrett [phone] Encounters Encounter Location Date Provider Diagnosis [facility] [address] [place] [address] 12/03/2024 Christina Monaco Plan Of Treatment No Information Progress Notes * Ashlie COOPEROB:1949 (75 yo F)Acc No.[id number]:12/03/2024 Progress Note Patient:Kristal BERRIOS Provider:?Christina Monaco DPM :1950???Age:74 Y???Sex:Female D ate:12/03/2024 Address:[address] [place] Pcp:Sarah Winter Subjective: * Chief Complaints: * [...] DPM Date:?2024 Generated for Asher headley/Faxing/eTransmitting on:?02/02/2025 09:03 AM EDT
== END 2025-02-02 10:05 | disposition home or self-care (01) ==
LOC: HO.HGI 08:38
PROVIDERS: PCP Internal Medicine; Visit Provider Nurse Practitioner Family
DX: K59.04 Chronic idiopathic constipation (principal); K21.9 Gastro-esophageal reflux disease without esophagitis
CPT/HCPCS: 99213

== ENCOUNTER 2025-02-08 09:20 | Outpatient (AMB) | payer BC, MEDICAID, SELFPAY ==
--- OUTSIDE RECORDS SUMMARY | 2025-02-08 09:26 | XMS_ITS ---
Author Organization [facility] Address [address] [place] [address] Care Team Providers Care [employer] Name Role Phone HaleySarah rodriguez Primary Care Provider Unavailab Christina Garrett Unavailable [phone] REASON FOR VISIT cx appt 01/25/25 Encounters Encounter Location Date Provider Diagnosis [facility] [address] [place] [address] 01/21/2025 Christina Black Plan Of Treatment No Information Progress Notes * Ashlie COOPEROB:1949 (74 yo F)Acc No.[id number]:01/21/2025 Patient:?Kristal COOPER :1950???Age:74 Y???Sex:Female Address:[address] [place] [address] * true * Date:? Generated for Sivai kayode/Sun/eTransmitting on:?02/08/2025 09:26 AM EDT
--- OUTSIDE RECORDS SUMMARY | 2025-02-08 09:26 | XMS_ITS | Patient Health Record ---
Author Organization [facility] [place] Address [address] [place] [address] Care Team Providers Care Steam Drier Tender Name Role Phone Anushkakiran Sarah Primary Care Provider Unavailab Christina Garrett Unavailable [phone] Allergies No Known Allergies Results Component Value [...] Ordered Date Performed Result Body Sit e 06161-RJJZUZI NAIL, 6 OR MORE 06/15/2024 N/A Encounters Encounter Location Date Provider Diagnosis [address] [address] 06/15/2024 Christina Monaoc Pain in left foot M79.672 ; Pain in left ankle and joints of left foot M25.572 ; Bursitis of intermetatarsal bursa of left foot M77.52 ; Metatarsalgia, left foot M77.42 ; Tinea unguium B35.1 ; Pain in right toe(s) M79.674 ; Pain in left toe(s) M79.675 and Tinea pedis of both feet B35.[address] [address] 03/05/[address] [address] 06[facility]20[facility] [address] [address] [facility] [address] 01/21/2025 Christina Monaco Assessments Encounter Date Diagnosis [...] Treatment Pending Test Test Name Order Date [id number] NAIL, 6 OR MORE 06/15/2024 Insurance Providers Payer Name Payer Address Payer Phone Subscriber Number Group Number Insured Name Patient Relationship to Insured Coverage Start Date Coverage End Date BlueCare 65 Medicare [address] [place] [address] [phone] [id number] Kristal Ingram Self - patient is the insured Medical (General) History Medical History History ICD Code Back,Hip,and Knee pain High blood pressure C PAP Surgical History Surgery Date(Month/Year) 1989
--- OUTSIDE RECORDS SUMMARY | 2025-02-08 09:26 | XMS_ITS ---
Author Organization [facility] Address [address] [place] [address] Care Team Providers Care Flight Service Specialist Name Role Phone Sarah Winter Primary Care Provider Unavailab Christina Garrett [phone] Encounters Encounter Location Date Provider Diagnosis [facility] [address] [place] [address] 01/25/2025 Christina Monaco Plan Of Treatment No Information Progress Notes * Ashlie COOPEROB:1949 (75 yo F)Acc No.[id number]:01/25/2025 Progress Note Patient:Kristal BERRIOS Provider:?Christina Monaco DPM :1950???Age:74 Y???Sex:Female D ate:01/25/2025 Address:[address] [id number] Pcp:Sarah Winter Subjective: * Chief Complaints: * ??? * Medical History:? Objective: * Vitals:? Assessment: Plan: * Treatment: * Images: * The named appointment provid er may or may not be the originator of this progress note, and it is not deemed complete until electronically signed by the appointment provider. Sign off status: Pending * Provider:?Christina Monaco DPM Date:?2024 Generated for Asher headley/Faxing/eTransmitting on:?02/08/2025 09:26 AM EDT
--- OUTSIDE RECORDS SUMMARY | 2025-02-08 09:26 | XMS_ITS ---
Author Organization [facility] Address [address] [place] [address] Care Team Providers Care Art Sales Consultant Name Role Phone Sarah Winter Primary Care Provider Unavailab Christina Garrett [phone] Encounters Encounter Location Date Provider Diagnosis [facility] [address] [place] [address] 12/03/2024 Christina Monaco Plan Of Treatment No Information Progress Notes * Ashlie COOPEROB:1949 (75 yo F)Acc No.[id number]:12/03/2024 Progress Note Patient:Kristal BERRIOS Provider:?Christina Monaco DPM :1950???Age:74 Y???Sex:Female D ate:12/03/2024 Address:[address] [place] Pcp:Sarah Winter Subjective: * Chief Complaints: * [...]
--- NOTE | 2025-02-08 09:32 | A.OFFVIS_ITS ---
Intake Visit Reasons: Cysto/ Pelvic exam/ US Intake Note: Patient presents to office today for cystoscopy Urology Medication: Vitamin B12, Solifenacin(not taking) Blood Thinner:none Allergy to Antibiotic:none Allergies No Known Allergies (No Known Allergies*) Allergy (Verified 03/29/25 14:29) HPI Comments Details: 02/08/25-- History of Present Illness The patient is a 75-year-old female presenting for an office cystoscopy due to a history of recurrent Urinary Tract Infections (UTIs). She has been previously evaluated for the frequent UTIs. The patient also has symptoms of urinary incontinence and frequent urinary tract infections. She has experienced improvement with the use of Vessicare. The issue of incontinence has been ongoing with increasing urgency and frequent urination. An ultrasound showed kidneys WNL but detected a large post-void residual. The patient experiences increased urgency and frequency upon waking and after prolonged sitting, consistently leading to immediate urination upon standing. Urinary Symptoms Review - Daily urinary incontinence, more pronounced after sitting - Frequent urination, especially 3-4 times in the morning - Urgency upon standing - Manages with frequent pad use - Large post-void residual on ultrasound - Nocturnal symptoms occasionally present - Difficulty fully emptying bladder Results - Renal Ultrasound (01/01/25): Normal kidneys, large post-void residual (pre-void volume: 684 mL; post-void: 524 mL) Procedures Office cystoscopy today. Cystoscopy findings: Mild to moderate trabeculations, no suspicious bladder lesions Discussed use of pessary. We will trial a smaller size pessary for bladder management due to previous inefficacy and discomfort with a larger size, after obtaining proper consent. 12/14/24--Kristal is a 74-year-old female she states that she is concerned regarding worsening urinary leakage. She wears a pad daily. Comorbidity-obesity. She states the problem has been worsening over the past several years. She states that 5 years ago she saw a urologist who tried a pessary but it was painful and it had to be removed. She states she has never been on medication for the bladder previously. She states she also saw a urologist many years ago and a type of test was done where her bladder was filled with water after the testing she states that no treatment was discussed with her. She denies having urinary tract infections. She states that her about 8 months ago. She denies seeing blood in the urine. UA - neg blood, neg leuk. Bladder scan PVR 125 mL. I have discussed further e valuation with kidney and bladder ultrasound we will trial VESIcare 5 mg daily and have her follow-up for office cystoscopy. [facility] Medical History HTN (hypertension) GERD (gastroesophageal reflux disease) Osteoarthritis of right knee Hypercholesteremia Surgical History History of esophagogastroduodenoscopy (EGD) Hx of colonoscopy Hx of knee surgery Hx of hysterectomy Family History Father Stomach cancer Paternal Grandfather Esophageal cancer Brother Diabetes Social History Household Members: Spouse Alcohol intake: never Patient Tobacco Use Status: Never used Tobacco Office Procedures Cystoscopy Consent Discussed risk and benefit or proposed procedure with the patient. Information consent for procedure given to the patient. Discussed technical aspects, risks, benefits and alternatives in full. Addressed all of the patient's questions and concerns regarding the procedure. The patient demonstrated knowledge and understanding. They wish to proceed with this procedure. Preparation The patient was prepped in the usual manner. A positive printer operator was present and in the room. Genitalia was prepped with betadine solution in a sterile manner. Lidocaine Jelly 2% was placed into the urethra and 16Fr flexible Olympus cystoscope was inserted into the meatus after adequate lubrication. Procedure Time out per protocol performed. Speculum used as indicated for adequate visualization of urethra, the flexible cystoscope is passed transurethrally: The bladder was inspected in its entirety with utilization retroflexion displaying: Tumor(s): no suspicious bladder lesions visualized Trabeculation: Mild Moderate Mucosal Erthema: mild Orifices: normal shape and position Urethra: normal 77967-Gflroiwwfo DISPOSABLE SCOPE URO-G FLEXIBLE SCOPE Procedure code (CPT) selection complete Office Meds lidocaine HCl 2 % mucosal jelly in applicator Performing Provider: Lori Vasquez MD [facility] [facility] Administered by: Thomas De La Rosa LPN on 02/08/25 09:53 Dose Route Admin Location Dispensed Lot Number Expiration Date [facility] [employer] 10 mL intra-urethral 20 mL ciprofloxacin HCl 500 mg tablet Performing Provider: Lori Vasquez MD Performing [place] [facility] Administered by: Thomas De La Rosa LPN on 02/08/25 09:53 Dose Route Admin Location Dispensed Lot Number Expiration Date NDC [employer] 500 mg PO 1 tab phenazopyridine 200 mg tablet Performing Provider: Lori Vasquez MD Performing Location[place] [facility] Administered by: Thomas De La Rosa LPN on 02/08/25 09:53 Dose Route Admin Location Dispensed Lot Number Expiration Date NDC [employer] 200 mg PO 1 tab Results AMB Urinalysis, Automated UA Leukoctes 0 Celia/uL Last Edit by Kathryn Ramirez on 02/08/25 16:28 UA Nitrite Negative Last Edit by Kathryn Ramirez on 02/08/25 16:28 UA Urobilinogen 0.2 mg/dL Last Edit by Kathryn Ramirez on 02/08/25 16:28 UA Protein 0 mg/dL Last Edit by Katrhyn Ramirez on 02/08/25 16:28 UA pH 5.5 Last Edit by Kathryn Ramirez on 02/08/25 16:28 UA Blood 0 Aneudy/uL Last Edit by Kathryn Ramirez on 02/08/25 16:28 UA Specific Valders 1.020 Last Edit by Kathryn Ramirez on 02/08/25 16:28 UA Ketone Negative Last Edit by Kathryn Ramirez on 02/08/25 16:28 UA Bilirubin 0 mg/dL Last Edit by Kathryn Ramirez on 02/08/25 16:28 UA Glucose 0 mg/dL Last Edit by Kathryn Ramirez on 02/08/25 16:28 Results Reviewed Results Reviewed: Laboratory Last Values Urine pH (Auto) 5.5 02/08/25 16:20 Specific Valders (Auto) 1.020 02/08/25 16:20 Urine Protein (Auto) 0 mg/dL 02/08/25 16:20 Glucose (UA)(Auto) 0 mg/dL 02/08/25 16:20 Urine Ketones (Auto) Negative 02/08/25 16:20 Urine Blood (Auto) 0 Aneudy/uL 02/08/25 16:20 Urine Nitrite (Auto) Negative 02/08/25 16:20 Urine Bilirubin (Auto) 0 mg/dL 02/08/25 16:20 Urine Urobilinogen (Auto) 0.2 mg/dL 02/08/25 16:20 Leukocyte Esterase (Auto) 0 Celia/uL 02/08/25 16:20 Date of Service: 01/01/25 CLINICAL HISTORY: R32 - Unspecified urinary incontinence US Renal Comparison: None Findings: Right kidney normal size and echotexture, 9.0 cm length. Left kidney normal size and echotexture, 11.3 cm length. No collecting system dilatation of either kidney. Normal color Doppler. Urinary bladder is unremarkable. Prevoid volume 684 mL. Postvoid volume 524 mL. Bilateral ureteral jets are visualized. IMPRESSION: 1. Normal kidneys. 2. Large postvoid residual. Assessment & Plan Assessment & Plan (1) Urinary urgency: Code(s): R39.15 - Urgency of urination Category: Medical (2) Urinary incontinence: Code(s): R32 - Unspecified urinary incontinence Category: Medical (3) Female cystocele: Code(s): N81.10 - Cystocele, unspecified Category: Medical Plan FU in 6 weeks for pessary check Orders: Orders AMB Cystoscopy 02/08/25 R39.15 - Urgency of urination, R32 - Unspecified urinary incontinence AMB Urinalysis Automated 02/08/25 Z13.9 - Encounter for screening, unspecified Scribe Plan - Not visible on output: Patient was informed and verbally consented to the use of an ambient scribe for clinic note documentation during this visit. Coding Level of Care Code Procedure Only Diagnoses Urinary urgency R39.15 Urinary incontinence R32 Female cystocele N81.10 CPT Codes Pessary Device Insert - CPT: 89796-Dlvtrbi device insert ([id number]) Cystoscopy - CPT: 88977-Coeoayrfit ([id number]) Pessary Device Insert Details: Fitted for ring pessary 01856-Ufzytxh device insert
== END 2025-02-08 10:34 | disposition home or self-care (01) ==
LOC: HO.HUSH 09:20
PROVIDERS: PCP Internal Medicine; Visit Provider Urology
DX: R39.15 Urgency of urination (principal); R32 Unspecified urinary incontinence; Z13.9 Encounter for screening, unspecified
CPT/HCPCS: 52000; 57160

== ENCOUNTER → 2025-02-08 09:20 | Outpatient (BNVA) | payer BC, MEDICAID, SELFPAY | PROVIDERS: PCP Internal Medicine; Visit Provider Urology | DX: R39.15 Urgency of urination (principal); R32 Unspecified urinary incontinence; N81.10 Cystocele, unspecified | CPT/HCPCS: 52000; 57160; 81003 ==

== ENCOUNTER 2025-02-10 08:52 | Outpatient (AMB) | payer BC, MEDICAID, SELFPAY ==
--- NOTE | 2025-02-10 09:12 | AM.OFFVISNUR ---
Intake Visit Reasons: H Pylori BT. Hold famotidine. Allergies No Known Allergies [No Known Allergies*] Allergy (Verified 02/08/25 09:38) Nursing Note Patient presents for collection of H Pylori breath test. Patient has been fasting for 1 hour (nothing to eat, drink, no chewing gum or smoking) has not taken any antacid medication for at least 2 weeks and has no allergies to artificial sweeteners.?? Assessment & Plan Assessment & Plan (1) GERD (gastroesophageal reflux disease): Code(s): K21.9 - Gastro-esophageal reflux disease without esophagitis Plan Patient presents for collection of H Pylori breath test. Patient has been fasting for 1 hour (nothing to eat, drink, no chewing gum or smoking) has not taken any antacid medication for at least 2 weeks and has no allergies to artificial sweeteners.???This test checks for an overgrowth of bacteria in your stomach. We all have bacteria but some may have more than others. It is treatable. if the test comes back negative there is nothing else to do. If the test result is positive we will treat you with 2 antibiotics and a medication to decrease the acid in your stomach (PPI) for 2 weeks. Two weeks after you have completed the treatment we will retest you to make sure the overgrowth has resolved. Orders: Orders H Pylori Breath Test Today Patient Instructions: Process for specimen collection and reason for testing was explained to the patient. Specimen collection. Patient instructed to take a deep breath and then exhale into the blue bag, filling it up as much as possible. Patient instructed to drink a mixture of water and the artificial sweetener with a straw. A 15 minute wait period was observed. Patient instructed to take a deep breath and then exhale into the pink bag, filling it up as much as possible.?? Coding Level of Care Code Established Pt Est Pt Level 1 (91556) Patient Type Established Medical Decision Making Straight Forward Diagnoses GERD (gastroesophageal reflux disease) K21.9
--- OUTSIDE RECORDS SUMMARY | 2025-02-10 09:16 | XMS_ITS ---
Author Organization [facility] Address [address] [place] [address] Care Team Providers Care Tax Auditor Name Role Phone AnushkaSarah beck Primary Care Provider Unavailab Christina Garrett Unavailable [phone] REASON FOR VISIT cx appt 01/25/25 Encounters Encounter Location Date Provider Diagnosis [facility] [address] [place] [address] 01/21/2025 Christina Black Plan Of Treatment No Information Progress Notes * Ashlie COOPEROB:1949 (74 yo F)Acc No.[id number]:01/21/2025 Patient:?Kristal COOPER :1950???Age:74 Y???Sex:Female Address:[address] [place] [address] * true * Date:? Generated for Sivai kayode/Sun/eTransmitting on:?02/10/2025 09:16 AM EDT
--- OUTSIDE RECORDS SUMMARY | 2025-02-10 09:16 | XMS_ITS ---
Author Organization [facility] Address [address] [place] [address] Care Team Providers Care Conductor And Engineer Name Role Phone Sarah Winter Primary Care Provider Unavailab Christina Garrett [phone] Encounters Encounter Location Date Provider Diagnosis [facility] [address] [place] [address] 12/03/2024 Christina Monaco Plan Of Treatment No Information Progress Notes * Ashlie COOPEROB:1949 (75 yo F)Acc No.[id number]:12/03/2024 Progress Note Patient:Kristal BERRIOS Provider:?Christina Monaco DPM :1950???Age:74 Y???Sex:Female D ate:12/03/2024 Address:[address] [id number] Pcp:Sarah Winter Subjective: * Chief Complaints: * ??? * Medical History:? Objective: * Vitals:? Assessment: Plan: * Treatment: * Images: * The named appointment provid er may or may not be the originator of this progress note, and it is not deemed complete until electronically signed by the appointment provider. Sign off status: Pending * Provider:?Christina Monaco DPM Date:?2024 Generated for Asher headley/Faxing/eTransmitting on:?02/10/2025 09:16 AM EDT
--- OUTSIDE RECORDS SUMMARY | 2025-02-10 09:16 | XMS_ITS | Patient Health Record ---
Author Organization [facility] [place] Address [address] [facility] [place] [address] Care Team Providers Care Etl Database Developer Name Role Phone Anushkakiran Sarah Primary Care Provider Unavailab Christina Garrett Unavailable [phone] Allergies No Known Allergies Results Component Value [...] Ordered Date Performed Result Body Sit e 68327-XHSTEXH NAIL, 6 OR MORE 06/15/2024 N/A Encounters Encounter Location Date Provider Diagnosis [address] [address] 06/15/2024 Christina Monaco Pain in left foot M79.672 ; Pain in left ankle and joints of left foot M25.572 ; Bursitis of intermetatarsal bursa of left foot M77.52 ; Metatarsalgia, left foot M77.42 ; Tinea unguium B35.1 ; Pain in right toe(s) M79.674 ; Pain in left toe(s) M79.675 and Tinea pedis of both feet B35.[address] [address] 03/05/[address] [address] [facility]/20[facility] [address] [address] [facility] [address] 01/21/2025 Christina Monaco Assessments Encounter Date Diagnosis [...] Treatment Pending Test Test Name Order Date [id number] NAIL, 6 OR MORE 06/15/2024 Insurance Providers Payer Name Payer Address Payer Phone Subscriber Number Group Number Insured Name Patient Relationship to Insured Coverage Start Date Coverage End Date Blue[employer] 65 Medicare [address]erred [address] [place] [address] [phone] [id number] Kristal Ingram Self - patient is the insured Medical (General) History Medical History History ICD Code Back,Hip,and Knee pain High blood pressure C PAP Surgical History Surgery Date(Month/Year) 1989
--- OUTSIDE RECORDS SUMMARY | 2025-02-10 09:17 | XMS_ITS ---
Author Organization [facility] Address [address] [place] [address] Care Team Providers Care Doula Name Role Phone Sarah Winter Primary Care Provider Unavailab Christina Garrett [phone] Encounters Encounter Location Date Provider Diagnosis [facility] [address] [place] [address] 01/25/2025 Christina Monaco Plan Of Treatment No Information Progress Notes * Ashlie COOPEROB:1949 (75 yo F)Acc No.[id number]:01/25/2025 Progress Note Patient:Kristal BERRIOS Provider:?Christina Monaco DPM :1950???Age:74 Y???Sex:Female D ate:01/25/2025 Address:[address] [id number] Pcp:Sarah Winter Subjective: * Chief Complaints: * [...]
== END 2025-02-10 09:13 | disposition home or self-care (01) ==
LOC: HO.HGI 08:53
PROVIDERS: PCP Internal Medicine; Visit Provider Nurse Practitioner Family
DX: K21.9 Gastro-esophageal reflux disease without esophagitis (principal)

== ENCOUNTER → 2025-02-10 08:52 | Outpatient (BNVA) | payer BC, MEDICAID, SELFPAY | PROVIDERS: PCP Internal Medicine; Visit Provider Nurse Practitioner Family | DX: K21.9 Gastro-esophageal reflux disease without esophagitis (principal) | CPT/HCPCS: 99211 ==

== ENCOUNTER 2025-02-10 09:20 | Outpatient (REF) | payer BC, MEDICAID, SELFPAY ==
--- OUTSIDE RECORDS SUMMARY | 2025-02-12 11:48 | XMS_ITS ---
Author Organization [facility] Address [address] [place] [address] Care Team Providers Care Ad Terminal Makeup Operator Name Role Phone HaleySarah rodriguez Primary Care Provider Unavailab Christina Garrett Unavailable [phone] REASON FOR VISIT cx appt 01/25/25 Encounters Encounter Location Date Provider Diagnosis [facility] [address] [place] [address] 01/21/2025 Christina Black Plan Of Treatment No Information Progress Notes * Ashlie COOPEROB:1949 (74 yo F)Acc No.[id number]:01/21/2025 Patient:?Kristal COOPER :1950???Age:74 Y???Sex:Female Address:[address] [place] [address] * true * Date:? Generated for Sivai kayode/Sun/eTransmitting on:?02/12/2025 11:47 AM EDT
--- OUTSIDE RECORDS SUMMARY | 2025-02-12 11:48 | XMS_ITS | Patient Health Record ---
Author Organization [facility] Cammie ospina [place] Address [address] [place] [address] Care Team Providers Care Cold Rolling Machine Setter Name Role Phone Anushkakiran Sarah Primary Care Provider Unavailab Christina Garrett Unavailable [phone] Allergies No Known Allergies Results Component Value [...] Ordered Date Performed Result Body Sit e 81218-HTTJHTN NAIL, 6 OR MORE 06/15/2024 N/A Encounters Encounter Location Date Provider Diagnosis [address] [address] 06/15/2024 Christina Monaco Pain in left foot M79.672 ; Pain in left ankle and joints of left foot M25.572 ; Bursitis of intermetatarsal bursa of left foot M77.52 ; Metatarsalgia, left foot M77.42 ; Tinea unguium B35.1 ; Pain in right toe(s) M79.674 ; Pain in left toe(s) M79.675 and Tinea pedis of both feet B35.[address] [address] 03/05/[address] [address] 06/15/2024 [facility] [address] [address] [facility] [address] 01/21/2025 Christina Monaco Assessments Encounter Date Diagnosis [...] Treatment Pending Test Test Name Order Date [id number] NAIL, 6 OR MORE 06/15/2024 Insurance Providers Payer Name Payer Address Payer Phone Subscriber Number Group Number Insured Name Patient Relationship to Insured Coverage Start Date Coverage End Date BlueCare 65 Medicare [address]erred [address] [place] [address] [id number] Kristal Ingram Self - patient is the insured Medical (General) History Medical History History ICD Code Back,Hip,and Knee pain High blood pressure C PAP Surgical History Surgery Date(Month/Year) 1989
--- OUTSIDE RECORDS SUMMARY | 2025-02-12 11:48 | XMS_ITS ---
Author Organization [facility] Address [address] [place] [address] Care Team Providers Care Ergonomic Specialist Name Role Phone Sarah Winter Primary Care Provider Unavailab Christina Garrett [phone] Encounters Encounter Location Date Provider Diagnosis [facility] [address] [place] [address] 12/03/2024 Christina Monaco Plan Of Treatment No Information Progress Notes * Ashlie COOPEROB:1949 (75 yo F)Acc No.[id number]:12/03/2024 Progress Note Patient:Kristal BERRIOS Provider:?Christina Monaco DPM :1950???Age:74 Y???Sex:Female D ate:12/03/2024 Address:[address] [id number] Pcp:Sarah Winter Subjective: * Chief Complaints: * ??? * Medical History:? Objective: * Vitals:? Assessment: Plan: * Treatment: * Images: * The named appointment provid er may or may not be the originator of this progress note, and it is not deemed complete until electronically signed by the appointment provider. Sign off status: Pending * Provider:?Christina Monaco DPM Date:?2024 Generated for Asher headley/Faxing/eTransmitting on:?02/12/2025 11:48 AM EDT
--- OUTSIDE RECORDS SUMMARY | 2025-02-12 11:48 | XMS_ITS ---
Author Organization [facility] Address [address] [place] [address] Care Team Providers Care Court Clerk Name Role Phone Sarah Winter Primary Care Provider Unavailab Christina Garrett [phone] Encounters Encounter Location Date Provider Diagnosis [facility] [address] [place] [address] 01/25/2025 Christina Monaco Plan Of Treatment No Information Progress Notes * Ashlie COOPEROB:1949 (75 yo F)Acc No.[id number]:01/25/2025 Progress Note Patient:Kristal BERRIOS Provider:?Christina Monaco DPM :1950???Age:74 Y???Sex:Female D ate:01/25/2025 Address:[address] [place] Pcp:Sarah Winter Subjective: * Chief Complaints: * [...]
[2025-02-12 13:43] LABS: H Pylori Breath Test Negative (Negative)
== END 2025-02-10 09:21 | disposition home or self-care (01) ==
LOC: HO.LNP 09:20
PROVIDERS: Visit Provider Nurse Practitioner Family
DX: K21.9 Gastro-esophageal reflux disease without esophagitis (principal)
CPT/HCPCS: 83013

== ENCOUNTER 2025-03-12 07:35 | Outpatient (REF) | payer BC, MEDICAID, SELFPAY ==
--- OUTSIDE RECORDS SUMMARY | 2025-03-12 07:37 | XMS_ITS | Patient Health Record ---
Author Organization [facility] [place] Address [address] [place] [address] Care Team Providers Care Vector Control Specialist Name Role Phone Anushkakiran Sarah Primary Care Provider Unavailab Christina Garrett Unavailable [phone] Allergies No Known Allergies Results Component Value [...] Ordered Date Performed Result Body Sit e 48010-ZNLOACX NAIL, 6 OR MORE 06/15/2024 N/A Encounters Encounter Location Date Provider Diagnosis [address] [address] 06/15/2024 Christina Monaco Pain in left foot M79.672 ; Pain in left ankle and joints of left foot M25.572 ; Bursitis of intermetatarsal bursa of left foot M77.52 ; Metatarsalgia, left foot M77.42 ; Tinea unguium B35.1 ; Pain in right toe(s) M79.674 ; Pain in left toe(s) M79.675 and Tinea pedis of both feet B35.[address] [address] 06/[facility]/2024 [facility] [address] [address] 09/07/[address] [address] 01/21/2025 Christina Monaco Assessments Encounter Date Diagnosis [...] Treatment Pending Test Test Name Order Date [id number] NAIL, 6 OR MORE 06/15/2024 Insurance Providers Payer Name Payer Address Payer Phone Subscriber Number Group Number Insured Name Patient Relationship to Insured Coverage Start Date Coverage End Date BlueCare 65 Medicare Preferred [address] [place] [address] [phone] [id number] Kristal Ingram Self - patient is the insured Medical (General) History Medical History History ICD Code Back,Hip,and Knee pain High blood pressure C PAP Surgical History Surgery Date(Month/Year) 1989
[2025-03-12 08:33] LABS: Blood Urea Nitrogen 16 mg/dL (9-16); Estimated Glomerular Filt Rate 58
== END 2025-03-12 07:36 | disposition home or self-care (01) ==
LOC: HO.LAB 07:35
PROVIDERS: PCP Internal Medicine; Visit Provider Nurse Practitioner Family
DX: R10.11 Right upper quadrant pain (principal)
CPT/HCPCS: 36415; 82565; 84520

== ENCOUNTER 2025-03-17 13:50 | Outpatient (REF) | payer BC, MEDICAID, SELFPAY ==
--- OUTSIDE RECORDS SUMMARY | 2025-03-17 15:53 | XMS_ITS | Patient Health Record ---
Author Organization [facility] [place] Address [address] [facility] [place] [address] Care Team Providers Care Teamsite Developer Name Role Phone Anushkakiran Sarah Primary Care Provider Unavailab Christina Garrett Unavailable [phone] Allergies No Known Allergies Results Component Value [...] Ordered Date Performed Result Body Sit e 45429-LXCUFUU NAIL, 6 OR MORE 06/15/2024 N/A Encounters Encounter Location Date Provider Diagnosis [address] [address] 06/15/2024 Christina Monaco Pain in left foot M79.672 ; Pain in left ankle and joints of left foot M25.572 ; Bursitis of intermetatarsal bursa of left foot M77.52 ; Metatarsalgia, left foot M77.42 ; Tinea unguium B35.1 ; Pain in right toe(s) M79.674 ; Pain in left toe(s) M79.675 and Tinea pedis of both feet B35.[address] [address] 06/15/2024 [facility] [address] [address] 09/07/[address] [address] 01/21/2025 Christina Monaco Assessments Encounter Date Diagnosis [...] Treatment Pending Test Test Name Order Date [id number] NAIL, 6 OR MORE 06/15/2024 Insurance Providers Payer Name Payer Address Payer Phone Subscriber Number Group Number Insured Name Patient Relationship to Insured Coverage Start Date Coverage End Date BlueCare 65 Medicare Preferred [address] [place] [address] [id number] Kristal Ingram Self - patient is the insured Medical (General) History Medical History History ICD Code Back,Hip,and Knee pain High blood pressure C PAP Surgical History Surgery Date(Month/Year) 1989
== END 2025-03-17 13:51 | disposition home or self-care (01) ==
LOC: HO.CT 13:50
PROVIDERS: PCP Internal Medicine; Visit Provider Nurse Practitioner Family
DX: Z13.89 Encounter for screening for other disorder (principal)

== ENCOUNTER 2025-03-29 14:07 | Outpatient (AMB) | payer BC, MEDICAID, SELFPAY ==
--- NOTE | 2025-03-29 14:28 | A.OFFVIS_ITS ---
Intake Visit Reasons: pessary check up Intake Note: Patient presents to office today for pessary check up Urology Medication: Vitamin B12 Blood Thinner:none Allergy to Antibiotic:none Allergies No Known Allergies (No Known Allergies*) Allergy (Verified 03/29/25 14:29) HPI Comments Details: 03/29/25 History of Present Illness - The patient is a 75-year-old female presenting for pessary management and concerns regarding its placement. - pessary was place on 02/08/25, the patient was concerned about the pessary falling out, but examination confirmed it remains in place. - She denies any pain related to the pessary and will maintain her scheduled follow-up for pessary maintenance. - pt stopped using vesicare prescribed for OAB symptoms Discussion Notes I discussed with the patient that the pessary is still in place and there is no need for concern about it falling out. We talked about the possibility of self- removal and cleaning, but she does not feel she is capable to do this on her own. The patient will continue with her scheduled follow-up for pessary maintenance. [facility] Medical History HTN (hypertension) GERD (gastroesophageal reflux disease) Osteoarthritis of right knee Hypercholesteremia Surgical History History of esophagogastroduodenoscopy (EGD) Hx of colonoscopy Hx of knee surgery Hx of hysterectomy Family History Father Stomach cancer Paternal Grandfather Esophageal cancer Brother Diabetes Social History Household Members: Spouse Alcohol intake: never Patient Tobacco Use Status: Never used Tobacco Review of Systems Const All systems reviewed & are unremarkable except as noted in HPI and below Reports no additional complaints Eyes Reports no additional complaints ENT Reports no additional complaints Card Reports no additional complaints Resp Reports no additional complaints GI Reports no additional complaints Reports as per HPI Musc Reports no additional complaints Skin/Breast Reports system reviewed and no additional complaints, except as documented Neuro Reports no additional complaints Psych Reports no additional complaints Endo Reports no additional complaints Hunter/Lymph Reports no additional complaints Aller/Immun Reports no additional complaints Results Reviewed Results Reviewed: Date of Service: 01/01/25 CLINICAL HISTORY: R32 - Unspecified urinary incontinence US Renal Comparison: None Findings: Right kidney normal size and echotexture, 9.0 cm length. Left kidney normal size and echotexture, 11.3 cm length. No collecting system dilatation of either kidney. Normal color Doppler. Urinary bladder is unremarkable. Prevoid volume 684 mL. Postvoid volume 524 mL. Bilateral ureteral jets are visualized. IMPRESSION: 1. Normal kidneys. 2. Large postvoid residual. Assessment & Plan Assessment & Plan (1) Urinary urgency: Code(s): R39.15 - Urgency of urination Category: Medical (2) Urinary incontinence: Code(s): R32 - Unspecified urinary incontinence Category: Medical (3) Female cystocele: Code(s): N81.10 - Cystocele, unspecified Category: Medical Plan Plan - Keep the follow-up appointment for pessary maintenance as scheduled. - pt stopped using vesicare prescribed for OAB symptoms Patient Instructions: The patient had an opportunity to ask questions regarding treatment plan. The patient expressed understanding and agreement with the above treatment plan. The patient is aware they should contact our office by phone for worsening of their current condition or the appearance of new symptoms. Compliance is encouraged with any medications and followup testing that is ordered. It is a privilege to be allowed the opportunity to participate in the urologic care of your patient. If you have any questions or concerns regarding treatment for the above conditions please do not hesitate to contact me. The office telephone contact is [phone]. This note is constructed in part using voice recognition software. While every effort has been made to ensure accuracy terminal gauger supervisor errors may have been included. Yours sincerely, Lori Vasquez MD Scribe Plan - Not visible on output: Patient was informed and verbally consented to the use of an ambient scribe for clinic note documentation during this visit. Coding Level of Care Code Est Pt Level 3 (28282) Diagnoses Urinary urgency R39.15 Urinary incontinence R32 Female cystocele N81.10
--- OUTSIDE RECORDS SUMMARY | 2025-03-29 14:43 | XMS_ITS | Patient Health Record ---
Author Organization [facility] [place] Address [address] [facility] [place] [place] [address] Care Team Providers Care Chemical Mixer Name Role Phone Anushkakiran Sarah Primary Care Provider Unavailab Christina Garrett Unavailable [phone] Allergies No Known Allergies Results Component Value [...] a day to feet including between the toes; Duration: 30 days Active Atorvastatin Calcium 20 MG [...] Ordered Date Performed Result Body Sit e 05450-EBLUMSP NAIL, 6 OR MORE 06/15/2024 N/A Encounters Encounter Location Date Provider Diagnosis [address] [address] 06/15/2024 Christina Black Pain in left foot M79.672 ; Pain in left ankle and joints of left foot M25.572 ; Bursitis of intermetatarsal bursa of left foot M77.52 ; Metatarsalgia, left foot M77.42 ; Tinea unguium B35.1 ; Pain in right toe(s) M79.674 ; Pain in left toe(s) M79.675 and Tinea pedis of both feet B35.[address] [address] [facility]20[facility] [address] [address] 09/07/[address] [address] 01/21/2025 Christina Monaco Assessments Encounter Date Diagnosis [...] Treatment Pending Test Test Name Order Date [id number] NAIL, 6 OR MORE 06/15/2024 Insurance Providers Payer Name Payer Address Payer Phone Subscriber Number Group Number Insured Name Patient Relationship to Insured Coverage Start Date Coverage End Date Blue[employer] 65 Medicare Preferred [address] [place] [address] [id number] Kristal Ingram Self - patient is the insured Medical (General) History Medical History History ICD Code Back,Hip,and Knee pain High blood pressure C PAP Surgical History Surgery Date(Month/Year) 1989
== END 2025-03-29 15:45 | disposition home or self-care (01) ==
LOC: HO.HUSH 14:07
PROVIDERS: PCP Internal Medicine; Visit Provider Urology
DX: R39.15 Urgency of urination (principal); R32 Unspecified urinary incontinence; N81.10 Cystocele, unspecified; Z13.9 Encounter for screening, unspecified
CPT/HCPCS: 99213

== ENCOUNTER → 2025-03-29 14:07 | Outpatient (BNVA) | payer BC, MEDICAID, SELFPAY | PROVIDERS: PCP Internal Medicine; Visit Provider Urology | DX: R39.15 Urgency of urination (principal) | CPT/HCPCS: 81003 ==

== ENCOUNTER 2025-04-13 11:34 | Outpatient (REF) | payer MEDICARE, MEDICAID, SELFPAY ==
--- NOTE | ~2025-04-13 | CT_ITS ---
EXAMINATION: CT ABDOMEN PELVIS WITH IV CONTRAST HISTORY: R10.9 - Unspecified abdominal pain COMPARISON: Comparison is made with the prior examination dated 09/01/2022. TECHNIQUE: CT scan of the abdomen and pelvis was performed following administration of 85 mL Omnipaque 350 using standard departmental protocol. Coronal and sagittal reformatted images were generated and reviewed. The patient received oral contrast material. This CT exam was performed with one or more of the following dose reduction techniques: automated exposure control, adjustment of the mA and/or kV according to patient size, use of iterative reconstruction technique. DLP: 1133 mGy-cm FINDINGS: LOWER CHEST: The visualized lung bases are clear. There is no pleural effusion. CARDIOVASCULATURE: The heart is normal in size. There is no pericardial effusion. LIVER: The liver is normal in size and contour. Again seen is a 10 mm hypodensity in the left lobe which likely represents a cyst. The hepatic and portal veins are patent. GALLBLADDER / BILE DUCTS: The gallbladder is unremarkable. There is no intra or extrahepatic biliary ductal dilatation. SPLEEN: The spleen is normal in size. No focal splenic lesion is identified. PANCREAS: The pancreas is unremarkable in appearance. ADRENAL GLANDS: Within normal limits. KIDNEYS/RETROPERITONEUM: No renal calculi are identified. There is no hydronephrosis. There is a 10 mm cyst at the upper pole of the left kidney. LYMPH NODES: No abdominal or pelvic lymphadenopathy. VASCULATURE: The abdominal aorta is normal in caliber. MESENTERY/PERITONEUM: No free fluid. No masses. There is no free intraperitoneal gas. STOMACH: The stomach is collapsed, limiting evaluation. SMALL BOWEL: The small bowel is normal in caliber. COLON: The colon is unremarkable. APPENDIX: Normal. URINARY BLADDER/PELVIC ORGANS: The urinary bladder is unremarkable. The patient is status post hysterectomy. A pessary is seen in place. BONES / SOFT TISSUES: No suspicious bony or soft tissue abnormalities. Again seen is unilateral spondylolysis of L5 on the left. CT/CT abdomen pelvis w IV con IMPRESSION: No acute abnormality is seen. Electronically signed by: Julio C Glover MD 04/13/2025 03:07 PM EDT
--- OUTSIDE RECORDS SUMMARY | 2025-04-13 12:56 | XMS_ITS | Patient Health Record ---
Author Organization [facility] [place] Address [address] [facility] [place] [address] Care Team Providers Care Farm Service Adviser Name Role Phone Anushkakiran Sarah Primary Care Provider Unavailab Christina Garrett Unavailable [phone] Allergies No Known Allergies Results Component Value [...] Ordered Date Performed Result Body Sit e 37928-[id number] NAIL, 6 OR MORE 06/15/2024 N/A Encounters Encounter Location Date Provider Diagnosis [address] [address] 06/15/2024 Christina Black Pain in left foot M79.672 ; Pain in left ankle and joints of left foot M25.572 ; Bursitis of intermetatarsal bursa of left foot M77.52 ; Metatarsalgia, left foot M77.42 ; Tinea unguium B35.1 ; Pain in right toe(s) M79.674 ; Pain in left toe(s) M79.675 and Tinea pedis of both feet B35.[address] [address] [facility] [address] [address] 09/07/[address] [address] 01/21/2025 Christina Monaco Assessments Encounter Date Diagnosis [...] Treatment Pending Test Test Name Order Date [id number] NAIL, 6 OR MORE 06/15/2024 Insurance Providers Payer Name Payer Address Payer Phone Subscriber Number Group Number Insured Name Patient Relationship to Insured Coverage Start Date Coverage End Date BlueCare 65 Medicare Preferred [address] [place] [address] [id number] Kristal Ingram Self - patient is the insured Medical (General) History Medical History History ICD Code Back,Hip,and Knee pain High blood pressure C PAP Surgical History Surgery Date(Month/Year) 1989
[2025-04-13] MEDS: iohexoL 350 MG/ML 100 ML INFUS..BTL IV (14:32)
[2025-04-13] MEDS: Barium Sulfate Oral (Vanilla) 450 ML ORAL.SUSP 900 ML PO (14:33)
== END 2025-04-13 11:35 | disposition home or self-care (01) ==
LOC: HO.CT 11:34
PROVIDERS: PCP Internal Medicine; Visit Provider Nurse Practitioner Family
DX: R10.32 Left lower quadrant pain (principal)
CPT/HCPCS: 74177; Q9967

== ENCOUNTER → 2025-04-13 11:37 | Outpatient (BNV) | payer MEDICARE, MEDICAID, SELFPAY | PROVIDERS: PCP Internal Medicine; Visit Provider Radiology Diagnostic Radiology | DX: N28.1 Cyst of kidney, acquired (principal) | CPT/HCPCS: 74177 ==

== ENCOUNTER 2025-05-21 11:04 | Outpatient (AMB) | payer BC, MEDICAID, SELFPAY ==
--- OUTSIDE RECORDS SUMMARY | 2024-12-03 10:45 | XMS_ITS ---
Author Organization [facility] Address [address] [place] [address] Care Team Providers Care Shipping Technician Name Role Phone Sarah Winter Primary Care Provider Unavailab Christina Garrett [phone] Encounters Encounter Location Date Provider Diagnosis [facility] [address] [place] [address] 12/03/2024 Christina Monaco Plan Of Treatment No Information Progress Notes * Ashlie COOPEROB:1949 (75 yo F)Acc No.[id number]:12/03/2024 Progress Note Patient: Kristal HODGES Provider: Natalya Monaco DPM :1950 A ge:74 Y S ex:Female Date:12/03/2024 Address: [address] [place] Pcp:Sarah Winter Subjective: * Chief Complaints: * * Medical History: Objective: * Vitals: Assessment: Plan: * Treatment: * Images: * The named appointment provid er may or may not be the originator of this progress note, and it is not deemed complete until electronically signed by the appointment provider. Sign off status: Pending * Provider: Natalya Monaco DPM Date: 0 12/03/2024 Generated for Asher headley/Sun/Hannahransmitting on: 05/21/2025 11:09 AM EDT
--- OUTSIDE RECORDS SUMMARY | 2025-05-21 11:09 | XMS_ITS | Encounter Summary ---
Author Organization [facility] Address [address] [place] [address] Phone Care Team Providers Care Cna Pct Name Role Phone Stephan Amaya MD Primary Care Provider [phone]- [phone] Pcp, Unknown Primary Care Provider Unavailabl e Encounter Details Date Type Department Care Team (Late st Contact Info) Description 03/15/2021 Procedure Pass [facility], [address] [address] Social History Tobacco Use Types Packs/Day Years Used Date Smoking Tobacco: Never Smokeless Tobacco: Never Alcohol Use Standard Drinks/Week Comments Never 0 (1 standard drink = 0.6 oz pur e alcohol) Comments No Sex and Gender Information Value Date Recorded Sex Assigned at Not on file Legal Sex Female 10:00 PM EDT Gender Identity Not on file Sexual Orientation Not on file 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 Not on file Not on file Not on file documented as of this encounter Plan of Treatment Not on file documented as of this encounter Visit Diagnoses Not on filedocumented in this encounter Additional Health Concerns Infection Onset Date Last Indicated Resolved Time CoV-Risk 10/03/2021 10/03/2021 10/13/2021 1:23 AM EST Assessment Noted Time PHQ-2 Depression Total Score: 0 10/06/19 21 9:03 AM EST documented as of this encounter Care Teams Cna Pct Relationship Specialty Start Date End Date Stephan Amaya MD [address] [place] [address], [address] [place] [address] [email or web address] PCP - General Internal Medicine 02/03/21 03/12/23 Pcp, Unknown PCP - General 03/13/23 documented as of this encounter Additional Source Comments The information contained in this document represents components of the legal health record. It is not the complete legal health record.[facility]
--- NOTE | 2025-05-21 12:01 | MHC.OFFVIS ---
Intake Visit Reasons: 3m follow up Intake Note: Patient presents to office today for 3m follow up Urology Medication:Vitamin B12 Blood Thinner:none Allergy to Antibiotic:none PVR:112ml Allergies No Known Allergies (No Known Allergies*) Allergy (Verified 05/21/25 12:02) HPI Comments Details: 05/21/25--pessary has remained in place. The patient states she is urinating better. We will follow-up for pessary maintenance end of June. The [place] of [place] for the winter months 03/29/25 History of Present Illness - The patient is a 75-year-old female presenting for pessary management and concerns regarding its placement. - pessary was place on 02/08/25, the patient was concerned about the pessary falling out, but examination confirmed it remains in place. - She denies any pain related to the pessary and will maintain her scheduled follow-up for pessary maintenance. - pt stopped using vesicare prescribed for OAB symptoms Discussion Notes I discussed with the patient that the pessary is still in place and there is no need for concern about it falling out. We talked about the possibility of self-removal and cleaning, but she does not feel she is capable to do this on her own. The patient will continue with her scheduled follow-up for pessary maintenance. PFSH Medical History HTN (hypertension) GERD (gastroesophageal reflux disease) Osteoarthritis of right knee Hypercholesteremia Surgical History History of esophagogastroduodenoscopy (EGD) Hx of colonoscopy Hx of knee surgery Hx of hysterectomy Family History Father Stomach cancer Paternal Grandfather Esophageal cancer Brother Diabetes Social History Household Members: Spouse Alcohol intake: never Patient Tobacco Use Status: Never used Tobacco Results AMB Urinalysis, Automated UA Leukoctes 0 Celia/uL Last Edit by Kathryn Ramirez on 05/21/25 17:16 UA Nitrite Negative Last Edit by Kathryn Ramirez on 05/21/25 17:16 UA Urobilinogen 3.5 mg/dL Last Edit by Kathryn Ramirez on 05/21/25 17:16 UA Protein 0 mg/dL Last Edit by Kathryn Ramirez on 05/21/25 17:16 UA pH 6.0 Last Edit by Kathryn Ramirez on 05/21/25 17:16 UA Blood 0 Aneudy/uL Last Edit by Kathryn Ramirez on 05/21/25 17:16 UA Specific [place] 1.015 Last Edit by Kathryn Ramirez on 05/21/25 17:16 UA Ketone Negative Last Edit by Kathryn Ramirez on 05/21/25 17:16 UA Bilirubin 0 mg/dL Last Edit by Kathryn Ramirez on 05/21/25 17:16 UA Glucose 0 mg/dL Last Edit by Kathryn Ramirez on 05/21/25 17:16 Assessment & Plan Assessment & Plan Orders: Orders AMB Post Void Residual by ultrasound Today R32 - Unspecified urinary incontinence AMB Urinalysis Automated Today Z13.9 - Encounter for screening, unspecified Coding
== END 2025-05-21 13:44 | disposition home or self-care (01) ==
LOC: HO.HUSH 11:04
PROVIDERS: PCP Internal Medicine; Visit Provider Urology
DX: Z13.9 Encounter for screening, unspecified (principal)

== ENCOUNTER → 2025-05-21 11:04 | Outpatient (BNVA) | payer BC, MEDICAID, SELFPAY | PROVIDERS: PCP Internal Medicine; Visit Provider Urology | DX: Z13.9 Encounter for screening, unspecified (principal) | CPT/HCPCS: 81003 ==

== ENCOUNTER 2025-06-14 10:48 | Outpatient (AMB) | payer BC, MEDICAID, SELFPAY ==
--- OUTSIDE RECORDS SUMMARY | 2024-09-07 11:45 | XMS_ITS ---
Author Organization [facility] Address [address] [place] [address] Care Team Providers Care Leather Goods Ii Assembler Name Role Phone Sarah Winter Primary Care Provider Unavailab Christina Garrett [phone] Encounters Encounter Location Date Provider Diagnosis [facility] [address] [place] [address] 09/07/2024 Christina Monaco Plan Of Treatment No Information Progress Notes * Ashlie COOPEROB:1949 (75 yo F)Acc No.[id number]:09/07/2024 Progress Note Patient: Kristal HODGES Provider: Natalya Monaco DPM :1950 A ge:74 Y S ex:Female Date:09/07/2024 Address: [address] [id number] Pcp:Sarah Winter Subjective: * Chief Complaints: * [...] 11/08/2023 Generated for Asher headley/Sun/eTransmitting on: 0 06/14/2025 02:11 PM EDT
--- OUTSIDE RECORDS SUMMARY | 2024-12-03 10:45 | XMS_ITS ---
Author Organization [facility] Address [address] [place] [address] Care Team Providers Care Hospital Cook Name Role Phone Sarah Winter Primary Care Provider Unavailab Christina Garrett [phone] Encounters Encounter Location Date Provider Diagnosis [facility] [address] [place] [address] 12/03/2024 Christina Monaco Plan Of Treatment No Information Progress Notes * Ashlie COOPEROB:1949 (75 yo F)Acc No.[id number]:12/03/2024 Progress Note Patient: Kristal HODGES Provider: Natalya Monaco DPM :1950 A ge:74 Y S ex:Female Date:12/03/2024 Address: [address] [id number] Pcp:Sarah Winter Subjective: * Chief Complaints: * [...] 0 12/03/2024 Generated for Asher headley/Sun/Hannahransmitting on: 0 06/14/2025 02:07 PM EDT
--- OUTSIDE RECORDS SUMMARY | 2025-01-25 11:45 | XMS_ITS ---
Author Organization [facility] Address [address] [place] [address] Care Team Providers Care Chief Information Officer Name Role Phone Sarah Winter Primary Care Provider Unavailab Christina Garrett [phone] Encounters Encounter Location Date Provider Diagnosis [facility] [address] [place] [address] 01/25/2025 Christina Monaco Plan Of Treatment No Information Progress Notes * Ashlie COOPEROB:1949 (75 yo F)Acc No.[id number]:01/25/2025 Progress Note Patient: Kristal HODGES Provider: Natalya Monaco DPM :1950 A ge:74 Y S ex:Female Date:01/25/2025 Address: [address] [id number] Pcp:Sarah Winter Subjective: * Chief Complaints: * * Medical History: Objective: * Vitals: Assessment: Plan: * Treatment: * Images: * The named appointment provid er may or may not be the originator of this progress note, and it is not deemed complete until electronically signed by the appointment provider. Sign off status: Pending * Provider: Natalya Monaco DPM Date: 01/25/2025 Generated for Asher headley/Sun/eTransmitting on: 0 06/14/2025 02:10 PM EDT
--- NOTE | 2025-06-14 10:48 | A.OFFVIS_ITS ---
Vital Signs 06/14/25 10:50 Height 5 ft 3 in Weight 266 lb 12.149 oz BMI 47.2 BP 102/62 Blood Pressure Location Rt brachial Position Sitting Pulse 68 Pulse Source Pulse Oximeter Pulse Oximetry (%) 97 Oxygen Delivery Method Room Air Intake Visit Reasons: f/u ct scan Intake Note: ESTABLISHED PATIENT for mgmt of chronic abd pain Chief Complaint; Pt denies any GI sx or concerns at this time. Pt states that she has stopped her linzess and is having regular BMs even without this. Keeps PRNs available just in case. 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 Accompanied by: Self / Same As Patient Allergies No Known Allergies (No Known Allergies*) Allergy (Verified 06/14/25 10:50) Medication List - Last Reconciled 06/14/25 by PHILL Yee-MARGARETH acetaminophen (Tylenol) 650 mg (2 x 325 mg) PO Q6H PRN atorvastatin 1 tab PO BEDTIME cetirizine 1 tab PO DAILY cholecalciferol (vitamin D3) 50 mcg PO DAILY cyanocobalamin (vitamin B-12) 100 mcg PO DAILY famotidine 20 mg PO BID fluticasone propionate 50 mcg/actuation 1 spray intranasal DAILY ibuprofen 600 mg PO Q6H losartan 100 mg PO DAILY metronidazole 500 mg PO TID 7 days naproxen 500 mg PO BID PRN omega-3 fatty acids 500 mg PO DAILY omeprazole 20 mg PO DAILY HPI HPI f/u ct scan: Details: LAST VISIT: Abdominal pain Chronic idiopathic constipation GERD (gastroesophageal reflux disease) LUQ abdominal pain Screen for colon cancer Plan Patient continues with left lower quadrant pain, moderate diverticulosis seen. Patient will be sent for CT scan to rule out diverticulitis or recurrence of epiploic appendagitis. Patient will take 2 Dulcolax every evening. Increase fluid intake and activity to promote better bowel motility. Continue omeprazole in the morning and famotidine at bedtime. Patient will also increase fiber in her diet. Patient will return in 3 months, sooner on as needed basis. She is agreeable to this plan and verbalizes understanding of instructions. She was given the opportunity ask questions and all questions answered. ? Thank you for allowing me to participate in her care Orders CT abdomen pelvis w IV con Today R10.32, R10.9 Creatinine Today R10.11 Blood Urea Nitrogen Today R10.11 New omeprazole 20 mg PO DAILY 90 caps 3RF K21.9 TODAY'S VISIT Patient is here today for follow-up. Patient reports that she has been feeling better since last visit. 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 Patient reports that has been 13 months since her and she has been in the past few months feeling better. She is eating better. She is eating more vegetables. No longer needs to use Dulcolax or Linzess to help her move her bowels. Patient is moving her bowels daily. CT scan of the abdomen and pelvis was normal. Patient denies any dyspepsia, dysphagia or odynophagia. Reports occasional left upper quadrant cramping. [facility] Medical History HTN (hypertension) GERD (gastroesophageal reflux disease) Osteoarthritis of right knee Hypercholesteremia Surgical History History of esophagogastroduodenoscopy (EGD) Hx of colonoscopy Hx of knee surgery Hx of hysterectomy Family History Father Stomach cancer Paternal Grandfather Esophageal cancer Brother Diabetes Social History Household Members: Spouse Alcohol intake: never Patient Tobacco Use Status: Never used Tobacco Review of Systems Const Denies weight gain and Denies weight loss ENT Reports no additional complaints, Denies dysphagia and Denies odynophagia Card Reports no additional complaints Resp Reports no additional complaints GI Reports abdominal pain (LLQ), Denies belching, Denies melena, Reports bloating, Denies change in bowel habits, Reports constipation (Occasional), Denies dysphagia, Denies excessive flatus, Denies early satiety, Denies dyspepsia, Denies heartburn, Denies diarrhea, Denies loose stools, Denies nausea, Denies odynophagia and Denies vomiting Reports no additional complaints Musc Reports no additional complaints Neuro Reports no additional complaints Psych Reports no additional complaints Endo Reports no additional complaints Physical Exam Vital Signs: Last Vital Signs Pulse 68 06/14/25 10:50 BP 102/62 06/14/25 10:50 Pulse Ox 97 06/14/25 10:50 Oxygen Delivery Method Room Air 06/14/25 10:50 BMI result Body Mass Index 47.2 Results Reviewed Results Reviewed: CT SCAN OF ABDOMEN AND PELVIS FINDINGS: LOWER CHEST: The visualized lung bases are clear. There is no pleural effusion. CARDIOVASCULATURE: The heart is normal in size. There is no pericardial effusion. LIVER: The liver is normal in size and contour. Again seen is a 10 mm hypodensity in the left lobe which likely represents a cyst. The hepatic and portal veins are patent. GALLBLADDER / BILE DUCTS: The gallbladder is unremarkable. There is no intra or extrahepatic biliary ductal dilatation. SPLEEN: The spleen is normal in size. No focal splenic lesion is identified. PANCREAS: The pancreas is unremarkable in appearance. ADRENAL GLANDS: Within normal limits. KIDNEYS/RETROPERITONEUM: No renal calculi are identified. There is no hydronephrosis. There is a 10 mm cyst at the upper pole of the left kidney. LYMPH NODES: No abdominal or pelvic lymphadenopathy. VASCULATURE: The abdominal aorta is normal in caliber. MESENTERY/PERITONEUM: No free fluid. No masses. There is no free intraperitoneal gas. STOMACH: The stomach is collapsed, limiting evaluation. SMALL BOWEL: The small bowel is normal in caliber. COLON: The colon is unremarkable. APPENDIX: Normal. URINARY BLADDER/PELVIC ORGANS: The urinary bladder is unremarkable. The patient is status post hysterectomy. A pessary is seen in place. BONES / SOFT TISSUES: No suspicious bony or soft tissue abnormalities. Again seen is unilateral spondylolysis of L5 on the left. CT/CT abdomen pelvis w IV con IMPRESSION: No acute abnormality is seen. Assessment & Plan Assessment & Plan (1) Abdominal pain: Code(s): R10.9 - Unspecified abdominal pain Qualifiers: Abdominal location: generalized Qualified Code(s): R10.84 - Generalized abdominal pain (2) Chronic idiopathic constipation: Code(s): K59.04 - Chronic idiopathic constipation (3) Gastroesophageal reflux disease: Code(s): K21.9 - Gastro-esophageal reflux disease without esophagitis Qualifiers: Esophagitis presence: esophagitis presence not specified Qualified Code(s): K21.9 - Gastro-esophageal reflux disease without esophagitis (4) Left upper quadrant abdominal pain: Code(s): R10.12 - Left upper quadrant pain Plan Patient will continue avoiding dietary triggers. Patient will take omeprazole in the morning and famotidine and bedtime as needed. Increase fiber in her diet and fluids. F patient will follow-up in 6 months, sooner on as needed basis. She is agreeable to this plan and verbalizes understanding of instructions. She was given the opportunity to ask questions and all questions answered. Thank you for allowing me to participate in her care Coding Level of Care Code Est Pt Level 3 (06363) Diagnoses Generalized abdominal pain R10.84 Abdominal location: generalized Chronic idiopathic constipation K59.04 Gastroesophageal reflux disease, unspecified whether esophagitis present K21.9 Esophagitis presence: esophagitis presence not specified Left upper quadrant abdominal pain R10.12 Time Spent (min) 25 Comment 15 minutes spent with patient and additional 10 minutes spent reviewing her records
[2025-06-14 10:50] VITALS: BP 102/62; PULSE 68; O2SAT 97; BMI 47.2
--- OUTSIDE RECORDS SUMMARY | 2025-06-14 14:09 | XMS_ITS | Encounter Summary ---
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 It is not the complete legal health record.[facility]
--- OUTSIDE RECORDS SUMMARY | 2025-06-14 14:09 | XMS_ITS | Encounter Summary ---
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 Not on file Not on file documented as of this encounter Plan of Treatment Not on file documented as of this encounter Visit Diagnoses Not on filedocumented in this encounter Additional Health Concerns Assessment Noted Time PHQ-2 Depression Total Score: 0 03/07/20 22 2:00 PM EDT documented as of this encounter Care Teams Eyeglass Frame Truer Relationship Specialty Start Date End Date Stephan Amaya MD [address] [place] [address], [address] [place] [address] PCP - General Internal Medicine 02/03/21 03/12/23 Pcp, Unknown PCP - General 03/13/23 documented as of this encounter Additional Source Comments The information contained in this document represents components of the legal health record. It is not the complete legal health record.[facility]
--- OUTSIDE RECORDS SUMMARY | 2025-06-14 14:10 | XMS_ITS | Encounter Summary ---
Author Organization [facility] Address [address] [place] [address] Phone Care Team Providers Care Commercial Underwriter Name Role Phone Clarissa Anaya DO Primary Care Provider +1- [phone] Stephan Amaya MD Primary Care Provider +1- [phone] Pcp, Unknown Primary Care Provider Unavailabl e Encounter Details Date Type Department Care Team (Late st Contact Info) Description 03/02/2019 Ancillary Orders Virtual Department [address] [place] [address] Clarissa Anaya DO [address] [place] [address] [email or web address] Breast [email or web address] Social History Tobacco Use Types Packs/Day Years Used Date Smoking Tobacco: Never Smokeless Tobacco: Never Alcohol Use Standard Drinks/Week Comments Not Currently 0 (1 standard drink = 0.6 oz pur e alcohol) Comments No Sex and Gender Information Value Date Recorded Sex Assigned at Not on file Legal Sex Female 10:00 PM EDT Gender Identity Not on file Sexual Orientation Not on file documented as of this encounter Plan of Treatment Not on file documented as of this encounter Results * BI MAMMOGRAM SCREENING WITH TOMOSYNTHESIS WITH CAD (BILATERAL) (05/29/2019 1:19 PM EDT) Anatomical Region Laterality Modality Breast Left, Breast Right, Breast Bilateral Bila teral Mammography 05/29/2019 2:01 PM EDT Impressions 05/29/2019 2:03 PM EDT Stable appearance relative to prior imaging. No findings suggestive of malignancy are seen. BI-RADS CATEGORY: 2 - Benign finding. DENSITY: The breast tissue is almost entirely fat. POS - [id number] Narrative 05/29/2019 2:03 PM EDT Full-field digital mammography is obtained with computer-aided detection. Comparison with prior imaging from05/28/2018 is made with older imaging dating back as far as05/06/2013 also reviewed. There is fatty fibroglandular density evident in the breasts. In addition to 2-D C view imaging, tomosynthesis images are obtained in two projections of each breast. There are minor bilateral vascular calcifications evident. An intramammary lymph node on the left is unchanged.. No dominant soft tissue mass of concern, suspicious cluster of calcifications, significant interval skin changes, or architectural distortion is identified. Procedure Note Ruben Nix MD - 05/29/2019 Full-field digital mammography is obtained with computer-aided detection.Comparison with prior imaging from05/28/2018 is made with older imagingdating back as far as05/06/2013 also reviewed. There is fatty fibroglandular density evident in the breasts. In additionto 2-D C view imaging, tomosynthesis images are obtained in twoprojections of each breast. There are minor bilateral vascular calcifications evident. An intramammarylymph node on the left is unchanged.. No dominant soft tissue mass ofconcern, suspicious cluster of calcifications, significant interval skinchanges, or architectural distortion is identified. IMPRESSION: Stable appearance relative to prior imaging. No findings suggestive ofmalignancy are seen. BI-RADS CATEGORY: 2 - Benign finding. DENSITY: The breast tissue is almost entirely fat. POS - [id number] Clarissa Anaya DO IMG MG EXAMS Final Resu lt documented in this encounter Visit Diagnoses Diagnosis Breast screening Breast screening, unspecified Breast screening Breast screening, unspecified documented in this encounter Additional Health Concerns Infection Onset Date Last Indicated Resolved Time CoV-Risk 10/03/2021 10/03/2021 10/13/2021 1:23 AM EST documented as of this encounter Care Teams Commercial Underwriter Relationship Specialty Start Date End Date Clarissa Anaya DO [address] [place] [address] [email or web address] PCP - General Family Medicine 12/29/18 02/02/21 Stephan Amaya MD [address] [place] [address], [address] [place] [address] [email or web address] PCP - General Internal Medicine 02/03/21 03/12/23 Pcp, Unknown PCP - General 03/13/23 documented as of this encounter Additional Source Comments The information contained in this document represents components of the legal health record. It is not the complete legal health record.[facility]
--- OUTSIDE RECORDS SUMMARY | 2025-06-14 14:10 | XMS_ITS | Encounter Summary ---
Author Organization [facility] Address [address] [place] [address] Phone Care Team Providers Care Staffing Clerk Name Role Phone Clarissa Anaya DO Primary Care Provider +1- [phone] Stephan Amaya MD Primary Care Provider +1- [phone] Pcp, Unknown Primary Care Provider Unavailabl e Encounter Details Date Type Department Care Team (Late st Contact Info) Description 03/02/2019 Ancillary Orders [facility] [address] [place] [address] Clarissa Anaya DO [address] [place] [address] [email or web address] Social History Tobacco Use Types Packs/Day Years [...] documented as of this encounter Care Teams Staffing Clerk Relationship Specialty Start Date End Date Clarissa Anaya DO [address] [place] [address] [email or web address] PCP - General Family Medicine 12/29/18 02/02/21 Stephan Amaya MD [address] [place] [address], [address] [place] [address] PCP - General Internal Medicine 02/03/21 03/12/23 Pcp, Unknown PCP - General 03/13/23 documented as of this encounter Additional Source Comments The information contained in this document represents components of the legal health record. It is not the complete legal health record.[facility]
--- OUTSIDE RECORDS SUMMARY | 2025-06-14 14:10 | XMS_ITS | Encounter Summary ---
Author Organization [facility] Address [address] [place] [address] Phone Care Team Providers Care Inclusion Special Educator Name Role Phone Clarissa Anaya DO Primary Care Provider +1- [phone] Stephan Amaya MD Primary Care Provider +1- [phone] Pcp, Unknown Primary Care Provider Unavailabl e Encounter Details Date Type Department Care Team (Late st Contact Info) Description 03/03/2020 Ancillary Orders 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 BI-RADS CATEGORY: 2 - Benign finding. DENSITY: There are scattered fibroglandular densities. Narrative 06/01/2020 2:04 PM EDT Standard digital full-field 2-D C view and two-plane tomographic imaging was performed and compared with multiple prior studies, most recently 05/29/2019, with utilization of computer-aided detection. The breasts are composed of scattered fibroglandular densities. The stromal markings are essentially unchanged in overall appearance and distribution. No dominant spiculated mass, suspicious clustered microcalcifications, or focal zone of pathologic skin thickening or retraction are noted to have arisen in the interim. Scattered punctate and coarse benign-appearing microcalcifications are again seen bilaterally as is a stable small chronic intramammary lymph node in the upper outer quadrant on the left. Procedure Note Brett Diggs MD - 06/01/2020 Standard digital full-field 2-D C view and two-plane tomographic imagingwas performed and compared with multiple prior studies, most yacbbaqd16/30/2019, with utilization of computer-aided detection. The breasts are composed of scattered fibroglandular densities. Thestromal markings are essentially unchanged in overall appearance anddistribution. No dominant spiculated mass, suspicious clusteredmicrocalcifications, or focal zone of pathologic skin thickening orretraction are noted to have arisen in the interim. Scattered punctate andcoarse benign-appearing microcalcifications are again seen bilaterally asis a stable small chronic intramammary lymph node in the upper outerquadrant on the left. IMPRESSION: No mammographic evidence of malignancy. BI-RADS CATEGORY: 2 - Benign finding. DENSITY: There are scattered fibroglandular densities. us Clarissa Anaya DO IMG MG EXAMS Final Resu lt documented in this encounter Visit Diagnoses Diagnosis Breast screening Breast screening, unspecified Breast screening Breast screening, unspecified documented in this encounter Additional Health Concerns Infection Onset Date Last Indicated Resolved Time CoV-Risk 10/03/2021 10/03/2021 10/13/2021 1:23 AM EST Assessment Noted Time PHQ-2 Depression Total Score: 1 02/17/20 20 1:53 PM EDT documented as of this encounter Care Teams Inclusion Special Educator Relationship Specialty Start Date End Date Clarissa Anaya DO [address] [place] [address] [email or web address] PCP - General Family Medicine 12/29/18 02/02/21 Stephan Amaya MD [address] [place] [address], [address] [place] [address] [email or web address] PCP - General Internal Medicine 02/03/21 03/12/23 Pcp, Unknown PCP - General 03/13/23 documented as of this encounter Additional Source Comments The information contained in this document represents components of the legal health record. It is not the complete legal health record.[facility]
--- OUTSIDE RECORDS SUMMARY | 2025-06-14 14:10 | XMS_ITS | Encounter Summary ---
Author Organization [facility] Address [address] [place] [address] [place] [address] Phone Care Team Providers Care Orthopedic Podiatrist Name Role Phone Stephan Amaya MD Primary Care Provider +1- [phone] Pcp, Unknown Primary Care Provider Unavailabl e Encounter Details Date Type Department Care Team (Late st Contact Info) Description 03/15/2021 Ancillary Orders Virtual Department [address] [place] [address] Stephan Amaya MD [address] [facility], [address] [place] [address] [email or web address] Breast screening Social History Tobacco Use Types [...] 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 Normal interval follow- up is recommended in 12 months. Bi-RADS: BI-RADS CATEGORY: 1 - Negative. DENSITY: There are scattered fibroglandular densities. Narrative 06/02/2021 5:15 PM EDT STUDY: Bilateral screening mammography with tomosynthesis and CAD TECHNIQUE: Bilateral full-field digital screening mammography is obtained and read in conjunction with computer-aided detection. Tomosynthesis as well as 2-D C view imaging were obtained. COMPARISON: Comparison made to multiple prior, most recent June 01, 2020, and most remote May 13, 2015. BREAST COMPOSITION: There are scattered areas of fibroglandular density BILATERAL BREASTS: No significant masses, suspicious calcifications or other abnormalities are seen. Procedure Note Asa Whitehead MD - 06/02/2021 STUDY: Bilateral screening mammography with tomosynthesis and CAD TECHNIQUE: Bilateral full-field digital screening mammography is obtainedand read in conjunction with computer-aided detection. Tomosynthesis aswell as 2-D C view imaging were obtained. COMPARISON: Comparison made to multiple prior, most recent May, and most remote May 13, 2015. BREAST COMPOSITION: There are scattered areas of fibroglandulardensity BILATERAL BREASTS: No significant masses, suspicious calcifications orother abnormalities are seen. IMPRESSION: BILATERAL BREASTS: Negative, no evidence of malignancy. Normal intervalfollow-up is recommended in 12 months. Bi-RADS: BI-RADS CATEGORY: 1 - Negative. DENSITY: There are scattered fibroglandular densities. us Stephan Amaya MD IMG MG EXAMS Final Resu lt documented [...] documented as of this encounter Care Teams Orthopedic Podiatrist Relationship Specialty Start Date End Date Stephan Amaya MD [address] [place] [address], [address] [place] [address] [email or web address] PCP - General Internal Medicine 02/03/21 03/12/23 Pcp, Unknown PCP - General 03/13/23 documented as of this encounter Additional Source Comments The information contained in this document represents components of the legal health record. It is not the complete legal health record.[facility]
--- OUTSIDE RECORDS SUMMARY | 2025-06-14 14:10 | XMS_ITS | Encounter Summary ---
Author Organization [facility] Address [address] [place] [address] [place] [address] Phone Care Team Providers Care Cable Systems Installer Name Role Phone Stephan Amaya MD Primary Care Provider +1- [phone] Pcp, Unknown Primary Care Provider Unavailabl e Encounter Details Date Type Department Care Team (Late st Contact Info) Description 03/15/2021 Ancillary Orders [facility] Medicine [address] [place] [address] [place] [address] Stephan Amaya MD [address] [facility], [address] [place] [address] Social History Tobacco Use Types Packs/Day Years [...] 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 It is not the complete legal health record.[facility]
--- OUTSIDE RECORDS SUMMARY | 2025-06-14 14:10 | XMS_ITS | Clinical Summary ---
Author Organization [employer] Address [address] [facility] [address] [place] [address] Care Team Providers Care Drupal Programmer Name Role Phone Unavailable Primary Care Provider Unavailabl e Allergies No known active allergies Medications albuterol 108 (90 Base) MCG/ACT inhaler TOME DOS INHALACIONES POR VIA ORAL CADA CUATRO HORAS CUANDO SEA NECESARIO PARA LA SIBILANCIA 10/02/19 22 Active atorvastatin (Lipitor) 20 MG tablet Take 20 mg by mouth at bedtime. 09/14/20 22 Active Bisacodyl EC 5 MG EC tablet PLEASE SEE ATTACHED FOR DETAILED DIRECTIONS 12/17/19 25 Active cetirizine (ZyrTEC) 10 MG tablet Take 10 mg by mouth Once per day. Active cholecalcifero l (Vitamin D-3) 125 MCG (5000 UT) capsule Take 5,000 Units by mouth every other day. Active famotidine (Pepcid) 20 MG tablet Take 20 mg by mouth 2 times daily. Active fluticasone (Flonase) 50 MCG/ACT nasal spray spray 1 spray into each nostril 2 times a day Active ibuprofen 200 MG tablet Take 200 mg by mouth if needed. Active losartan (Cozaar) 100 MG tablet Take 1 tablet by mouth Once per day. 03/23/20 25 Active naproxen (Naprosyn) 500 MG tablet TAKE 1 TAB(S) TAKE ONE TABLET BY MOUTH TWICE A DAY 07/15/20 24 Active omega-3 1000 MG capsule capsule Take 1 capsule by mouth Once per day. Activ e omeprazole (PriLOSEC) [address] capsule Take 1 capsule by mouth Once per day. 02/22/20 25 Active GaviLAX 17 GM/SCOOP powder 238 G ORALLY ONCE DIRECTED BY GASTROENTEROLOGY DEPARTMENT AT [facility] 12/17/19 25 Active solifenacin (VESIcare) 5 MG tablet Take 1 tablet by mouth Once per day. 12/15/19 Active amoxicillin-cl avulanate (Augmentin) 875-125 MG tablet Take 1 tablet by mouth 2 times daily for 7 days. 14 tablet 05/12/20 25 025 acetaminophen (Tylenol 8 Hour) 650 MG ER tablet Take 1 tablet (650 mg) by mouth every 8 (eight) hours if needed for moderate pain for up to 10 days. Do not crush, chew, or split. 15 tablet 05/12/20 25 025 ibuprofen 800 MG tablet Take 1 tablet (800 mg) by mouth every 8 (eight) hours if needed for mild pain for up to 10 days. 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 No SI/HI. Hiatal hernia 07/20/2019 Class 3 severe obesity due t o excess calories with serious comorbidity in adult 12/29/2018 Dyslipidemia 12/29/2018 Overview (05/12/2025): On lipitor Gastroesophageal reflux disease without esophagi tis 12/29/2018 Mild intermittent asthma without complication Overview (05/12/2025): URI are triggers. Takes albuterol PRN. MALORIE on CPAP 12/29/2018 Overview (05/12/2025): Nightly. Feels much improved on CPAP. Since 2008. Used to see woodworking machine operator. No longer. Now uses [employer] in [place] gets equipment ever 3 months. Encounters Date Type Department Care Team Description 05/19/2025 3:00 PM EDT Office Visit [facility] [address] [place] [address] Cristobal Lopez 05/18/2025 Telephone [facility] [address] [facility], [place] [id number] Shlomo Ortez DDS 05/12/2025 1:00 PM EDT Office Visit [facility] [address] [facility] [place] [address] Radha Collins, DDS Dental caries (Primary Dx); Symptomatic irreversible pulpitis from Last 3 Months Social History Tobacco Use Types Packs/Day Years Used Date Smoking Tobacco: Never Smokeless Tobacco: Never Tobacco Cessation:Counseling Given: Not Answered Alcohol Use Standard Drinks/Week Comments Defer 0 (1 standard drink = 0.6 oz pur e alcohol) Comments Unknown Sex and Gender Information Value Date Recorded Sex Assigned at Female 05/12/2025 8:09 AM EDT Legal Sex Female 1:27 PM EST Gender Identity Female 05/12/2025 8:09 AM EDT Sexual Orientation Straight 05/12/2025 8: 09 AM EDT Last Filed Vital Signs Vital Sign Reading Time Taken Comments Blood Pressure 118/70 05/19/2025 3:13 PM EDT Pulse 66 05/19/2025 3:13 PM EDT Temperature - - Respiratory Rate - - Oxygen Saturation - - Inhaled Oxygen Concentration - - Weight - - Height - - Body Mass Index - - Plan of Treatment Health Maintenance Due Date Last Done Comments CT Colonography 1952 Colonoscopy 1952 Colorectal Cancer Screening 1952 Dental Oral Exam 1952 Dental Prophylaxis 1952 Dental X-Ray: Full Mouth 1952 Depression Screening 1952 FIT DNA/Cologuard 1952 FIT 1952 FOBT 1952 Lipid Panel 1952 SDOH Screening 1952 Sigmoidoscopy 1952 Alcohol/Substance Use Screening 1964 Hepatitis C Screening 01/26/1970 DTaP/Tdap/Td Vaccines (1 - Tdap) 10/07/2020 10/06/2020, 03/13/2009 Mammogram 06/05/2024 06/05/2022, 02/2022, 06/02/2021, Additional history exists COVID-19 Vaccine ( season) 2025 09/16/2021, 12/01/2020 Influenza Vaccine (#1) 2025 , 07/11/2023, 07/17/2022, Additional history exists Dental X-Ray: Bitewings 05/13/2026 05/12/2025 Tobacco Screening 05/19/2026 05/19/2025 Pneumococcal Vaccine: 50+ Years Completed 10/06/2020, 05/02/2018, 07/01/2017 Zoster Vaccines Completed 02/22/2021, 09/30, 01/11/2016 RSV Patients and Patients Aged 60 years or older Completed 08/23/2023 HIB Vaccines Aged Out No longer eligi ble based on patient's age to complete this topic HPV Vaccines Aged Out No longer eligi ble based on patient's age to complete this topic Hepatitis A Vaccines Aged Out No long er eligible based on patient's age to complete this topic Hepatitis B Vaccines Aged Out No long er eligible based on patient's age to complete this topic IPV Vaccines Aged Out No longer eligi ble based on patient's age to complete this topic Meningococcal B Vaccine Aged Out No l onger eligible based on patient's age to complete this topic Meningococcal Vaccine Aged Out No irene kishore eligible based on patient's age to complete this topic RSV under 20 months Aged Out No longe r eligible based on patient's age to complete this topic Rotavirus Vaccines Aged Out No longer eligible based on patient's age to complete this topic Procedures Procedure Name Priority Date/Time Associated Diagnosis Comments 17 EXTRACTION, ERUPTED TOOTH OR EXPOSED ROOT (ELEVATION/FORCEPS REMOVAL) Routine 05/19/2025 3:00 PM EDT INTRAORAL - PERIAPICAL FIRST RADIOGRAPHIC IMAGE Routine 05/12/2025 1:00 PM EDT Dental caries Symptomatic irreversible pulpitis PALLIATIVE (EMERGENCY) TREATMENT OF DENTAL PAIN - MINOR PROCEDURE Routine 05/12/2025 1:00 PM EDT Dental caries Symptomatic irreversible pulpitis CASE PRESENTATION, DETAILED AND EXTENSIVE TREATMENT PLANNING Routine 05/12/2025 1:00 PM EDT Dental caries Symptomatic irreversible pulpitis BITEWING - SINGLE RADIOGRAPHIC IMAGE Routine 05/12/2025 1:00 PM EDT Dental caries Symptomatic irreversible pulpitis INTRAORAL - PERIAPICAL FIRST RADIOGRAPHIC IMAGE Routine 05/12/2025 1:00 PM EDT Dental caries Symptomatic irreversible pulpitis from Last 3 Months Insurance DENTAL - [facility] PARTIAL (MEDICAID) [place] [id number]
--- OUTSIDE RECORDS SUMMARY | 2025-06-14 14:10 | XMS_ITS | Encounter Summary ---
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 Not on file Not on file documented as of this encounter Plan of Treatment Not on file documented as of this encounter Visit Diagnoses Not on filedocumented in this encounter Additional Health Concerns Assessment Noted Time PHQ-2 Depression Total Score: 0 03/07/20 22 2:00 PM EDT documented as of this encounter Care Teams Inspector Toys Relationship Specialty Start Date End Date Stephan Amaya MD [address] [place] [address], [address] [place] [address] PCP - General Internal Medicine 02/03/21 03/12/23 Pcp, Unknown PCP - General 03/13/23 documented as of this encounter Additional Source Comments The information contained in this document represents components of the legal health record. It is not the complete legal health record.[facility]
--- OUTSIDE RECORDS SUMMARY | 2025-06-14 14:10 | XMS_ITS | Patient Health Record ---
Author Organization [facility] Cammie anai Rhine Address [address] [facility] [place] [address] Care Team Providers Care Low Altitude Air Defense Gunner Name Role Phone Anushkakiran Sarah Primary Care Provider Unavailab Christina Garrett Unavailable [phone] Allergies No Known Allergies Results Component Value [...] Ordered Date Performed Result Body Sit e 08144-RIEMYAS NAIL, 6 OR MORE 06/15/2024 N/A Encounters Encounter Location Date Provider Diagnosis [address] [address] 06/15/2024 Christina Black Pain in left foot M79.672 ; Pain in left ankle and joints of left foot M25.572 ; Bursitis of intermetatarsal bursa of left foot M77.52 ; Metatarsalgia, left foot M77.42 ; Tinea unguium B35.1 ; Pain in right toe(s) M79.674 ; Pain in left toe(s) M79.675 and Tinea pedis of both feet B35.[address] [address] [facility] [address] [address] 09/07/[address] [address] 01/21/2025 Christina Monaco Assessments Encounter Date Diagnosis [...] Treatment Pending Test Test Name Order Date [id number] NAIL, 6 OR MORE 06/15/2024 Insurance Providers Payer Name Payer Address Payer Phone Subscriber Number Group Number Insured Name Patient Relationship to Insured Coverage Start Date Coverage End Date [employer] 65 Medicare Preferred [address] [place] [address] [id number] Kristal Ingram Self - patient is the insured Medical (General) History Medical History History ICD Code Back,Hip,and Knee pain High blood pressure C PAP Surgical History Surgery Date(Month/Year) 1989
--- OUTSIDE RECORDS SUMMARY | 2025-06-14 14:11 | XMS_ITS | Encounter Summary ---
Author Organization [facility] Address [address] [place] [address] Phone Care Team Providers Care Sediment Remediation Consultant Name Role Phone Clarissa Anaya DO Primary Care Provider +1- [phone] Stephan Amaya MD Primary Care Provider +1- [phone] Pcp, Unknown Primary Care Provider Unavailabl e Encounter Details Date Type Department Care Team (Late st Contact Info) Description 03/02/2019 Ancillary Orders [facility] [address] [place] [address] Clarissa Anaya DO [address] [place] [address] [email or web address] Social History Tobacco Use Types Packs/Day Years [...] documented as of this encounter Care Teams Sediment Remediation Consultant Relationship Specialty Start Date End Date Clarissa Anaya DO [address] [place] [address] [email or web address] PCP - General Family Medicine 12/29/18 02/02/21 Stephan Amaya MD [address] [place] [address], [address] [place] [address] [email or web address] PCP - General Internal Medicine 02/03/21 03/12/23 Pcp, Unknown PCP - General 03/13/23 documented as of this encounter Additional Source Comments The information contained in this document represents components of the legal health record. It is not the complete legal health record.[facility]
--- OUTSIDE RECORDS SUMMARY | 2025-06-14 14:11 | XMS_ITS | Clinical Summary ---
Author Organization [facility] Address [address] [place] [address] Phone Care Team Providers Care Strain Technician Name Role Phone Pcp, Unknown Primary Care Provider Unavailabl e Allergies No known active allergies Medications cholecalciferol (VITAMIN D3) 5,000 unit capsule Take 5,000 Units by mouth every other day. Active ibuprofen (ADVIL,MOTRIN) 200 MG tablet Take 200 mg by mouth as needed for pain (specific location in comments). Active albuterol 90 mcg/actuation inhalerIndicatio ns:Asthma with bronchitis TOME DOS INHALACIONES POR VIA ORAL CADA CUATRO HORAS CUANDO SEA NECESARIO PARA LA SIBILANCIA 8 g 2 Active omega 0-cpf-vcz-fish oil 1,000 mg (120 mg-180 mg) Cap Take 1 capsule by mouth daily. Active cetirizine (ZYRTEC) 10 MG tabletIndication s:Seasonal allergic rhinitis due to other allergic trigger TOME CED TABLETA TODOS LOS BAUMANN - OTC N/C 90 tablet 3 2 Active fluticasone propionate (FLONASE) 50 mcg/actuation nasal sprayIndications :Chronic pansinusitis TAKE 1 SPRAY BY NASAL ROUTE 2 (TWO) TIMES A DAY. 48 mL 1 2 Active atorvastatin (LIPITOR) 20 MG tabletIndication s:Dyslipidemia TAKE 1 TABLET BY MOUTH EVERYDAY AT BEDTIME 90 tablet 1 2 Active famotidine (PEPCID) 40 MG tabletIndication s:Hiatal hernia TAKE 1 TABLET BY MOUTH EVERY DAY 90 tablet 3 3 Active Active Problems Problem Noted Date Diagnosed Date Acute pain of left shoulder 12/31/2022 Assessment & Plan (12/31/2022 5:04 PM EDT): Unable to review records from [facility] prior to visit. Symptoms most consistent with muscle strain though question impingement vs tendinopathy given limitations to ROM of left shoulder. Pt requesting referral to [facility] for further evaluation and management. Referral placed. Will send small refill of muscle relaxants for patient to use at bedtime only. Pt educated on limited role of these medications as well as safety concerns. Pt verbalized understanding, agreeable to take only at bedtime as needed, monitor for sedation. Pt will call if symptoms persist or worsen. We discussed physical therapy which pt would like to defer until seen by ortho. Primary osteoarthritis of right knee 03/07/2022 Assessment & Plan (03/07/2022 3:14 PM EDT): Doing better after steroid injection from orthopedist, encouraged to work on losing weight Epiploic appendagitis 02/22/2022 Assessment & Plan (03/07/2022 3:14 PM EDT): She continues to have some right upper quadrant abdominal pain which is essentially unchanged. I suspect this is more to do with irritable bowel. She has a follow- up CT scheduled for later this week. Chronic pansinusitis 02/22/2022 Assessment & Plan (03/07/2022 3:13 PM EDT): Increase use of fluticasone nasal spray to twice daily Bladder pain 02/24/2021 Assessment & Plan (02/24/2021 12:38 PM EDT): Based on her previous evaluation and her symptoms I suspect she has interstitial cystitis. This is a diagnosis of exclusion and will need evaluation by urology. I have referred her to urology and await their findings. It is possible some of her supplements are making her symptoms worse. Asked her to stop drinking things with caffeine, discontinue vitamin C and fish oil supplements. Urge incontinence of urine 02/24/2021 Assessment & Plan (03/07/2022 3:14 PM EDT): She has small amounts of leakage and she is managing with a pad. Assessment & Plan (02/24/2021 12:39 PM EDT): Stable for many years and not clear if this is related to her pain. Should be evaluated for this also at urology. Mild episode of recurrent major depressive disor michael 02/17/2020 Overview (02/17/2020): Well controlled on celexa 20 mg daily, started 12/2019. No SI/HI. Hiatal hernia 07/20/2019 Dyslipidemia 12/29/2018 Overview (12/29/2018): On lipitor Mild intermittent asthma without complication Overview (12/29/2018): URI are triggers. Takes albuterol PRN. Class 3 severe obesity due t o excess calories with serious comorbidity in adult 12/29/2018 Assessment & Plan (03/07/2022 3:13 PM EDT): Dietary counseling was given Gastroesophageal reflux disease without esophagi tis 12/29/2018 MALORIE on CPAP 12/29/2018 Overview (12/29/2018): Nightly. Feels much improved on CPAP. Since 2008. Used to see solar energy sales specialist. No longer. Now uses [employer] in [place] gets equipment ever 3 months. Assessment & Plan (03/07/2022 3:13 PM EDT): Needs new CPAP, should refer to sleep medicine Resolved Problems Problem Noted Date Diagnosed Date Resolved Date Screening for lipid disorders 02/22/2022 03/07/2022 Immunizations Immunization Administration Dates Next Due COVID-19 (Pre-07/22) Joy Vaccine, rS-Ad26, PF 12/01/2020 [id number] FORMULATION 08/30/2009 Influenza High-Dose Quadriva lent Preservative Free IM 07/24/2021 Influenza High-Dose Trivalen t Preservative Free IM 07/20/2019 Influenza Quadrivalent Adjuv anted Preservative Free IM 07/24/2021,06/10/2020 Influenza Trivalent Adjuvant ed Preservative free IM 08/08/2018 Influenza, Unspecified Formulation 07/01,07/09/2016,08/16/2015,07/26,07/08/2013,09/07/2010,08/30/2009 ,07/08/2008,08/07/2007 Pneumococcal conjugate PCV13 05/02/2018,07/01/20 17 Pneumococcal polysaccharide PPSV23 10/06/2020 Td (adult),2 Lf Tetanus Toxo id, PF, Adsorbed 10/06/2020 Td, unspecified formulation 03/13/2009 Zoster live 01/11/2016 Zoster recombinant 02/22/2021,10/14/2020 Family History Medical History Relation Comments Sleep apnea Brother No Known Problems Daughter 1 No Known Problems Daughter 2 Cancer Father stomach cancer No Known Problems Grandchild No Known Problems Mother Dementia Paternal Grandfather Esophageal cancer Paternal Grandfather Hypertension Paternal Grandfather No Known Problems Son 1 No Known Problems Son 2 Breast cancer Neg Hx Relation Status Comments Brother Daughter 1 Alive Daughter 2 Alive Father (Age 60) Grandchild Alive Maternal Grandfather Maternal Grandmother (Age 30s) Tubercul osis Mother Alive lives in [place] Paternal Grandfather Paternal Grandmother Son 1 Alive Son 2 Alive Social History Tobacco Use Types Packs/Day Years Used Date Smoking Tobacco: Never Smokeless Tobacco: Never Alcohol Use Standard Drinks/Week Comments Never 0 (1 standard drink = 0.6 oz pur e alcohol) Education Answer Date Recorded Are you interested in more education? Not on peyman e 01/25/2023 Are you concerned about learning? Not on file 01/25/2023 No 01/25/2023 No 01/25/2023 Digital Access Answer Date Recorded No 02/25/2023 No 02/25/2023 Reliable internet access at home? Not on file 02/25/2023 Device with a working camera? 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 Not on file Not on file Not on file Last Filed Vital Signs Vital Sign Reading Time Taken Comments Blood Pressure 132/78 12/31/2022 11:21 AM EDT Pulse 78 12/31/2022 10:52 AM EDT Temperature 36.1 C (96.9 F) 03/07/2022 2:08 PM EDT Respiratory Rate 16 11/04/2020 2:42 PM EST Oxygen Saturation 98% 12/31/2022 10:52 AM EDT Inhaled Oxygen Concentration - - Weight 122.5 kg (270 lb) 12/31/2022 10:52 AM EDT Height 156.2 cm (5' 1.5 ) 07/09/2022 2:46 PM EDT Body Mass Index 50.2 07/09/2022 2:46 PM EDT Plan of Treatment Health Maintenance Due Date Last Done Comments HEPATITIS C SCREENING 01/26/1970 COLOGUARD 01/26/1997 FIT TEST 01/26/1997 FOBT 01/26/1997 SIGMOIDOSCOPY 01/26/1997 VIRTUAL COLONOSCOPY 01/26/1997 RSV VACCINE (1 - Risk 60-74 years 1-dose series) 2012 OSTEOPOROSIS SCREENING INITIAL (ONE-TIME) 01/26/2017 DEPRESSION SCREENING 03/07/2023 03/07/2022 MAMMOGRAM 06/05/2024 06/05/2022, 11/2020, 06/01/2020, Additional history exists INFLUENZA VACCINE (#1) 2025 , 07/24/2021, 07/24/2021, Additional history exists COVID-19 VACCINE ( season) 2025 09/16/2021, 12/01/2020 LIPID PANEL 02/22/2027 02/22/2022, 09/19/2020 Adult Td,Tdap Booster 10/06/2030 10/06/2020, 009 COLONOSCOPY 11/04/2030 11/04/2020 COLORECTAL CANCER SCREENING 11/04/2030 PNEUMOCOCCAL VACCINES (50+ years) Completed 10/06/2020, 05/02/2018, 07/01/2017 ZOSTER VACCINES Completed 02/22/2021, 09/30, 01/11/2016 SMOKING STATUS SCREENING (Once After 26 Yrs) Completed 07/09/2022 HEPATITIS A VACCINES Aged Out No long er eligible based on patient's age to complete this topic HIB VACCINES Aged Out No longer eligi ble based on patient's age to complete this topic MENINGOCOCCAL VACCINES (ACWY) Aged Out No longer eligible based on patient's age to complete this topic MENINGOCOCCAL VACCINES (B) Aged Out N o longer eligible based on patient's age to complete this topic Medical Devices Not on file Procedures Procedure Name Priority Date/Time Associated Diagnosis Comments BI MAMMOGRAM SCREENING WITH TOMOSYNTHESIS WITH CAD (BILATERAL) Routine 06/05/2022 11:38 AM EDT Visit for screening mammogram LIPID PANEL Routine 02/22/2022 12:49 PM EDT Screening for lipid disorders ENDOSCOPY, COLON 11/04/2020 2:00 PM EST from Last 3 Months or Most Recently Relevant to Health Maintenance Results * BI MAMMOGRAM SCREENING WITH TOMOSYNTHESIS WITH CAD (BILATERAL) (06/05/2022 11:38 AM EDT) Anatomical Region Laterality Modality Breast Left, Breast Right, Breast Bilateral Bila teral Mammography 06/05/2022 3:48 PM EDT Impressions 06/05/2022 3:53 PM EDT No mammographic signs of malignancy. Annual screening is recommended. BI-RADS CATEGORY: 1 - Negative. DENSITY: The breast tissue is almost entirely fat. Narrative 06/05/2022 3:53 PM EDT Bilateral mammography is performed in conjunction with computed aided detection. 3-D tomography along with 2-D C view imaging was also performed. Comparison made to previous dated as far back as 02/08/2004 and as recent as 06/02/2021. No suspicious masses, areas of architectural distortion or suspicious microcalcifications. Procedure Note Elieser Cabrales MD - 06/05/2022 Bilateral mammography is performed in conjunction with computed aideddetection. 3-D tomography along with 2-D C view imaging was alsoperformed. Comparison made to previous dated as far back as 02/08/2004 andas recent as 06/02/2021. No suspicious masses, areas of architectural distortion or suspiciousmicrocalcifications. IMPRESSION: No mammographic signs of malignancy. Annual screening is recommended. BI-RADS CATEGORY: 1 - Negative. DENSITY: The breast tissue is almost entirely fat. us Stephan Aamya MD IMG MG EXAMS Final Resu lt * (ABNORMAL) Lipid panel (02/22/2022 12:49 PM EDT) HDL 53 mg/dL [facility] Comment: Interpretation <40 mg/dL: Low HDL cholesterol (major risk factor for CHD) Greater than or equal to 60 mg/dL: High HDL cholesterol ( negative risk factor for CHD) HDL - cholesterol is affected by a number of factors, e.g. smoking, excerise, hormones, sex and age. CHOLESTEROL 174 0 - 240 mg/dL [facility] TRIGLYCERIDES 196(H) 30 - 160 mg/dL [facility] LDL 82 50 - 129 mg/dL [facility] Comment: LDL levels in terms of risk for coronary heart disease: <100 mg/dL: Optimal 100-129 mg/dL: Near or above optimal 130-159 mg/dL: Borderline high 160-189 mg/dL: High >190 mg/dL: Very High CARDIAC RISK RATIO 3.3 3.3 - 4.4 C [facility] Blood 02/22/2022 12:4 9 PM EDT 02/22/2022 12:56 PM EDT us Keila Haile MD LAB BLOOD ORDERABLES Final Result [facility] [address] [place] [address] * ENDOSCOPY, COLON (11/04/2020 2:00 PM EST) Narrative Transcriptions Elieser Smith MD - 11/04/2020 2:00 PM EST Patient Name: Kristal Colon Attending MD:: ELIESER SMITH MD Procedure Date: 11/04/2020 2:00 PM Date of : 1950 Age: 70 Admit Type: Outpatient Gender: Female Room: [place] [address] Referring MD: Clarissa Anaya Exam Type: Colonoscopy Indications: Screening for colorectal malignant neoplasm, Last colonoscopy 10 years ago Medications: Monitored Anesthesia Care Procedure: Informed consent was obtained from the patient after discussion of the indications, limitations, alternatives, benefits, and risks of the procedure. Risks specifically discussed include but are not limited to medication reactions, missed lesions, bleeding, perforation, or the need for emergentsurgery. Throughout the procedure, the patient's bloodpressure, pulse, end-tidal CO2, and oxygen saturations were monitored continuously. The Olympus adult variable colonoscope [id number] #3was introduced through the anus and advanced to thececum, identified by the appendiceal orifice. Thecolonoscopy was performed without difficulty. The patienttolerated the procedure well. The quality of the bowel preparation was good. Complications: No immediate complications. Estimated blood loss:None. Findings: The perianal and digital rectal examinations were normal. A 4 mm polyp was found in the transverse colon. The polyp was sessile. The polyp was removed with a cold snare. Resection and retrieval were complete. The rectum, recto-sigmoid colon, sigmoid colon, descending colon, splenic flexure, hepatic flexure, ascending colon, cecum, appendiceal orifice,ileocecal valve, rectum (on retroflexion) and ascending colon(on retroflexion) appeared normal. Impression: - One 4 mm polyp in the transverse colon, removedwith a cold snare. Resected and retrieved. - The rectum, recto-sigmoid colon, sigmoid colon, descending colon, splenic flexure, hepatic flexure, ascending colon, cecum, appendiceal orifice and ileocecal valve are normal. Recommendation: - Discharge patient to home. - Resume previous diet. - Continue present medications. - Await pathology results. - Repeat colonoscopy 7 years if pathology shows adenoma, 10 years if hyperplastic. for surveillance based on pathology results. if pain persists a repeat ct scan daniellauld berecomended ELIESER SMITH MD 11/04/2020 2:29:27 PM This report has been signed electronically. Number of Addenda: 0 Note Initiated On: 11/04/2020 2:00 PM Procedure Code(s): --- Professional --- 62140, Colonoscopy, flexible; with removal of tumor(s), polyp(s), or other lesion(s) by snare technique --- Technical --- 68458, Colonoscopy, flexible; with removal of tumor(s), polyp(s), or other lesion(s) by snare technique Diagnosis Code(s): --- Professional --- Z12.11, Encounter for screening for malignantneoplasm of colon D12.3, Benign neoplasm of transverse colon (hepatic flexure or splenic flexure) --- Technical --- Z12.11, Encounter for screening for malignantneoplasm of colon D12.3, Benign neoplasm of transverse colon (hepatic flexure or splenic flexure) CPT copyright 2018 [employer]. All rights reserved. The codes documented in this report are preliminary and upon hardware developer reviewmay be revised to meet current compliance requirements. Procedure Date: 11/04/2020 2:00:[address] [place] [address] Clarissa Anaya DO GI PROCEDURE ORDERABLES Fi nal Result from Last 3 Months or Most Recently Relevant to Health Maintenance Insurance [employer] Care Teams Strain Technician Relationship Specialty Start Date End Date Pcp, Unknown PCP - General 03/13/23 Additional Source Comments The information contained in this document represents components of the legal health record. It is not the complete legal health record.[facility]
--- OUTSIDE RECORDS SUMMARY | 2025-06-14 14:11 | XMS_ITS | Encounter Summary ---
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 PCP - General Family Medicine 12/29/18 02/02/21 Stephan Amaya MD [address] [place] [address], [address] [place] [address] [email or web address] PCP - General Internal Medicine 02/03/21 03/12/23 Pcp, Unknown PCP - General 03/13/23 documented as of this encounter Additional Source Comments The information contained in this document represents components of the legal health record. It is not the complete legal health record.[facility]
--- OUTSIDE RECORDS SUMMARY | 2025-06-14 14:11 | XMS_ITS | Encounter Summary ---
Author Organization [facility] Address [address] [place] [address] Phone Care Team Providers Care Water Project Manager Name Role Phone Sampson Stafford MD Primary Care Provider + Sarah Winter MD Primary Care Provider Clarissa Anaya DO Primary Care Provider [phone] Stephan Amaya MD Primary Care Provider [phone]- [phone] Pcp, Unknown Primary Care Provider Unavailabl e Encounter Details Date Type Department Care Team (Late st Contact Info) Description 04/17/2018 Ancillary Orders Virtual Department [address] [place], [place] [phone] Sampson Stafford MD [address] [place] [address] [phone] Breast screening Social History Tobacco Use Types Packs/Day Years Used Date Smoking Tobacco: Never Assessed Comments Unknown Sex and Gender Information Value Date Recorded Sex Assigned at Not on file Legal Sex Female 10:00 PM EDT Gender Identity Not on file Sexual Orientation Not on file documented as of this encounter Plan of Treatment Not on file documented as of this encounter Results * BI MAMMOGRAM SCREENING WITH TOMOSYNTHESIS WITH CAD (BILATERAL) (05/28/2018 9:39 AM EDT) Anatomical Region Laterality Modality Breast Left, Breast Right, Breast Bilateral Bila teral Mammography 05/28/2018 10:0 5 AM EDT Impressions 05/28/2018 10:08 AM EDT No mammographic evidence of malignancy. RECOMMENDED FOLLOWUP: Routine screening mammography is recommended, as clinically appropriate. The results will be sent to the patient. BI-RADS CATEGORY: 1 - Negative. BREAST DENSITY: There are scattered fibroglandular densities. POS - [id number] Narrative 05/28/2018 10:08 AM EDT BI MAMMOGRAM SCREENING WITH TOMOSYNTHESIS WITH CAD (BILATERAL), HISTORY: Screening. COMPARISON: Prior studies dating back to 2011, most recently 05/24/2017. TECHNIQUE: Digital breast tomosynthesis was performed in craniocaudal and mediolateral oblique projections. Right lateral exaggerated CC view. Reconstructed screening 2-D views were generated from the tomosynthesis images. Images were interpreted in conjunction with R-2 Image Director Customer computer-aided detection. FINDINGS: Breast density: There are scattered fibroglandular densities. There are no suspicious masses, suspicious areas of architectural distortion or suspicious clusters of microcalcifications. Procedure Note Akiko Rehman MD - 05/28/2018 BI MAMMOGRAM SCREENING WITH TOMOSYNTHESIS WITH CAD (BILATERAL), HISTORY: Screening. COMPARISON: Prior studies dating back to 2011, most recently 05/24/2017. TECHNIQUE: Digital breast tomosynthesis was performed in craniocaudal andmediolateral oblique projections. Right lateral exaggerated CC view.Reconstructed screening 2-D views were generated from the tomosynthesisimages. Images were interpreted in conjunction with R-2 Image Checkercomputer-aided detection. FINDINGS: Breast density: There are scattered fibroglandular densities. There are no suspicious masses, suspicious areas of architecturaldistortion or suspicious clusters of microcalcifications. IMPRESSION: No mammographic evidence of malignancy. RECOMMENDED FOLLOWUP: Routine screening mammography is recommended, asclinically appropriate. The results will be sent to the patient. BI-RADS CATEGORY: 1 - Negative. BREAST DENSITY: There are scattered fibroglandular densities. POS - [id number] Sampson Stafford MD IMG MG EXAMS Final Re sult documented in this encounter Visit Diagnoses Diagnosis Breast screening Breast screening, unspecified Breast screening Breast screening, unspecified documented in this encounter Additional Health Concerns Infection Onset Date Last Indicated Resolved Time CoV-Risk 10/03/2021 10/03/2021 10/13/2021 1:23 AM EST documented as of this encounter Care Teams Water Project Manager Relationship Specialty Start Date End Date Sampson Stafford MD [address] [place] [address] PCP - General Family Medicine 04/17/18 05/27/18 Sarah Winter MD [address] [place] [phone] PCP - General Internal Medicine 05/28/18 12/28/18 Clarissa Anaya DO [address] [place] [address] [email or web address] PCP - General Family Medicine 12/29/18 02/02/21 Stephan Amaya MD [address] [place] [address], [address] [place] [address] [email or web address] PCP - General Internal Medicine 02/03/21 03/12/23 Pcp, Unknown PCP - General 03/13/23 documented as of this encounter Additional Source Comments The information contained in this document represents components of the legal health record. It is not the complete legal health record.[facility]
--- OUTSIDE RECORDS SUMMARY | 2025-06-14 14:11 | XMS_ITS | Encounter Summary ---
Author Organization [facility] Address [address] [place] [address] Phone Care Team Providers Care Inside Sales Director Name Role Phone Britta Osei MD Primary Care Provider [phone] Sampson Stafford MD Primary Care Provider + Sarah Winter MD Primary Care Provider Clarissa Anaya DO Primary Care Provider [phone]- [phone] Stephan Amaya MD Primary Care Provider [phone]- [phone] Pcp, Unknown Primary Care Provider Unavailabl e Encounter Details Date Type Department Care Team (Late st Contact Info) Description 01/07/2018 Procedure Pass [address] [place] [address] Social History Tobacco Use Types Packs/Day Years [...] documented as of this encounter Care Teams Inside Sales Director Relationship Specialty Start Date End Date Britta Osei MD PCP - General 10/03/17 04/16/18 Sampson Stafford MD [address] [place] [address] PCP - General Family Medicine 04/17/18 05/27/18 Sarah Winter MD [address] [place] [phone] PCP - General Internal Medicine 05/28/18 12/28/18 Clarissa Anaya DO [address] [place] [address] [email or web address] PCP - General Family Medicine 12/29/18 02/02/21 Stephan Amaya MD [address] [place] [address], [address] [place] [address] [email or web address] PCP - General Internal Medicine 02/03/21 03/12/23 Pcp, Unknown PCP - General 03/13/23 documented as of this encounter Additional Source Comments The information contained in this document represents components of the legal health record. It is not the complete legal health record.[facility]
--- OUTSIDE RECORDS SUMMARY | 2025-06-14 14:11 | XMS_ITS | Encounter Summary ---
Author Organization [facility] Address [address] [place] [address] Phone Care Team Providers Care Superintendent Gas Distribution Name Role Phone Britta Osei MD Primary Care Provider [phone] Sampson Stafford MD Primary Care Provider + Sarah Winter MD Primary Care Provider Clarissa Anaya DO Primary Care Provider [phone] Stephan Amaya MD Primary Care Provider [phone]- [phone] Pcp, Unknown Primary Care Provider Unavailabl e Reason for Referral * Outpatient Procedure - Closed Specialty Diagnoses / Procedures Referred By Wilda gale Referred To Contact Diagnoses Acute eye pain Chronic nonintractable headache, unspecified headache type Procedures MRI Brain Britta Osei MD Phone: tel: fax: [email or web address] Referral ID Status Reason Start Date Expiration Date Visits Re quested Visits Authorized [id number] Closed 12/23/2017 02/21/2018 1 1 Encounter Details Date Type Department Care Team (Latest Contact Info) Description 01/07/2018 Ancillary Orders Virtual Department [address] [place] [address] Britta Osei MD [address] [place] [address], [address] [place] [phone] [email or web address] Acute eye pain; Chronic nonintractable headache, unspecified headache type Social History Tobacco Use Types Packs/Day Years Used Date Smoking Tobacco: Never Assessed Comments Unknown Sex and Gender Information Value Date Recorded Sex Assigned at Not on file Legal Sex Female 10:00 PM EDT Gender Identity Not on file Sexual Orientation Not on file documented as of this encounter Plan of Treatment Not on file documented as of this encounter Results * MRI BRAIN WITHOUT CONTRAST (01/16/2018 10:30 AM EDT) Anatomical Region Laterality Modality Head Magnetic Resonan ce 01/16/2018 11:1 7 AM EDT Impressions 01/16/2018 11:27 AM EDT No adrenal hemorrhage, mass, or infarction detected. Mildly progressive white matter changes without significant volume loss. No worrisome process identified clearly account for the headaches. Small area of susceptibility effect in the left cerebrum is of uncertain significance and cannot be assessed for change due to difference in technique between this and prior study. Repeat CT could be considered to look for evidence of calcification in the region but none was evident 2013. This is not likely to be an actionable finding. POS - [id number] Narrative 01/16/2018 11:27 AM EDT HISTORY: Headache, on the left. I and year pain on the left. Patient also reports tinnitus and vertigo COMPARISON: CT examination 04/27/2014 and MRI 05/03/2008 TECHNIQUE: Exam performed on a 1.5 Sarahy high-field MRI scanner. Axial T1, T2, T2*, T2 FLAIR and diffusion-weighted imaging with ADC map, sagittal T1 sequences were obtained. Posterior fossa cisternogram also obtained. FINDINGS: No abnormal intra or extra-axial blood or fluid collection, mass, or mass effect is identified. No CP angle mass in particular is seen. There appear to be preserved flow voids in the major intracranial arteries and veins. Basilar is again noted to be quite small. Multiple abnormal foci of white matter signal are again noted. A few have slightly increased in size. Some is slightly regressed and there are a few new lesions, including two on the right and one on the left. No leon hydrocephalus or prominent volume loss since prior study. No fluid in paranasal sinuses. Minor mucosal thickening in the frontal sinuses. Pituitary not enlarged and unchanged in appearance. Cerebellar tonsils not ectopic. No areas of restricted diffusion. There is a small focus of susceptibility effect noted in the left frontal region. This cannot be assessed for change as no susceptibility sequence was obtained previously and this is inapparent on other sequences. This could reflect a tiny cavernous angioma. There is no correlate on the prior CT to suggest calcification in the region on that study. Procedure Note Christy Cuevas MD - 01/16/2018 HISTORY: Headache, on the left. I and year pain on the left. Patient alsoreports tinnitus and vertigo COMPARISON: CT examination 04/27/2014 and MRI 05/03/2008 TECHNIQUE: Exam performed on a 1.5 Sarahy high-field MRI scanner. AxialT1, T2, T2*, T2 FLAIR and diffusion-weighted imaging with ADC map,sagittal T1 sequences were obtained. Posterior fossa cisternogram alsoobtained. FINDINGS: No abnormal intra or extra-axial blood or fluid collection, mass, or masseffect is identified. No CP angle mass in particular is seen. There appearto be preserved flow voids in the major intracranial arteries and veins.Basilar is again noted to be quite small. Multiple abnormal foci of whitematter signal are again noted. A few have slightly increased in size. Someis slightly regressed and there are a few new lesions, including two onthe right and one on the left. No leon hydrocephalus or prominent volumeloss since prior study. No fluid in paranasal sinuses. Minor mucosalthickening in the frontal sinuses. Pituitary not enlarged and unchanged inappearance. Cerebellar tonsils not ectopic. No areas of restricteddiffusion. There is a small focus of susceptibility effect noted in theleft frontal region. This cannot be assessed for change as nosusceptibility sequence was obtained previously and this is inapparent onother sequences. This could reflect a tiny cavernous angioma. There is nocorrelate on the prior CT to suggest calcification in the region on thatstudy. IMPRESSION: No adrenal hemorrhage, mass, or infarction detected. Mildly progressivewhite matter changes without significant volume loss. No worrisome processidentified clearly account for the headaches. Small area of susceptibilityeffect in the left cerebrum is of uncertain significance and cannot beassessed for change due to difference in technique between this and priorstudy. Repeat CT could be considered to look for evidence of calcificationin the region but none was evident 2013. This is not likely to be anactionable finding. POS - [id number] Britta Osei MD IMG MR HEAD/NECK Final Result documented in this encounter Visit Diagnoses Diagnosis Acute eye pain Chronic nonintractable headache, unspecified headache type Acute eye pain Chronic nonintractable headache, unspecified headache type documented in this encounter Additional Health Concerns Infection Onset Date Last Indicated Resolved Time CoV-Risk 10/03/2021 10/03/2021 10/13/2021 1:23 AM EST documented as of this encounter Care Teams Superintendent Gas Distribution Relationship Specialty Start Date End Date Britta Osei MD [email or web address] PCP - General 10/03/17 04/16/18 Sampson Stafford MD [address] [place] [address] PCP - General Family Medicine 04/17/18 05/27/18 Sarah Winter MD [address] [place] [phone] PCP - General Internal Medicine 05/28/18 12/28/18 Clarissa Anaya DO [address] [place] [address] [email or web address] PCP - General Family Medicine 12/29/18 02/02/21 Stephan Amaya MD [address] [place] [address], [address] [place] [address] PCP - General Internal Medicine 02/03/21 03/12/23 Pcp, Unknown PCP - General 03/13/23 documented as of this encounter Additional Source Comments The information contained in this document represents components of the legal health record. It is not the complete legal health record.[facility]
--- OUTSIDE RECORDS SUMMARY | 2025-06-14 14:11 | XMS_ITS | Encounter Summary ---
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 Not on file Not on file documented as of this encounter Plan of Treatment Not on file documented as of this encounter Visit Diagnoses Not on filedocumented in this encounter Additional Health Concerns Infection Onset Date Last Indicated Resolved Time CoV-Risk 10/03/2021 10/03/2021 10/13/2021 1:23 AM EST Assessment Noted Time PHQ-2 Depression Total Score: 0 10/06/19 9:03 AM EST documented as of this encounter Care Teams Manager Occupational Relationship Specialty Start Date End Date Clarissa Anaya DO [address] [place] [address] [email or web address] PCP - General Family Medicine 12/29/18 02/02/21 Stephan Amaya MD [address] [place] [address], [address] [place] [phone] PCP - General Internal Medicine 02/03/21 03/12/23 Pcp, Unknown PCP - General 03/13/23 documented as of this encounter Additional Source Comments The information contained in this document represents components of the legal health record. It is not the complete legal health record.[facility]
== END 2025-06-14 11:15 | disposition home or self-care (01) ==
LOC: HO.HGI 10:48
PROVIDERS: PCP Internal Medicine; Visit Provider Nurse Practitioner Family
DX: R10.84 Generalized abdominal pain (principal); K59.04 Chronic idiopathic constipation; K21.9 Gastro-esophageal reflux disease without esophagitis; R10.12 Left upper quadrant pain
CPT/HCPCS: 99213

== ENCOUNTER 2025-06-24 06:07 | Outpatient (REF) | payer MEDICARE, SELFPAY ==
--- OUTSIDE RECORDS SUMMARY | 2024-09-07 11:45 | XMS_ITS ---
Author Organization [facility] Address [address] [place] [address] Care Team Providers Care Betting Agency Counter Clerk Name Role Phone Sarah Winter Primary Care Provider Unavailab Christina Garrett [phone] Encounters Encounter Location Date Provider Diagnosis [facility] [address] [place] [address] 09/07/2024 Christina Monaco Plan Of Treatment No Information Progress Notes * Ashlie COOPEROB:1949 (75 yo F)Acc No.[id number]:09/07/2024 Progress Note Patient: Kristal HODGES Provider: Natalya Monaco DPM :1950 A ge:74 Y S ex:Female Date:09/07/2024 Address: [address] [id number] Pcp:Sarah Winter Subjective: * Chief Complaints: * [...] 11/08/2023 Generated for Asher headley/Sun/eTransmitting on: 0 06/24/2025 06:11 AM EDT
--- OUTSIDE RECORDS SUMMARY | 2024-12-03 10:45 | XMS_ITS ---
Author Organization [facility] Address [address] [place] [address] Care Team Providers Care Rotary Drill Rig Operator Name Role Phone Sarah Winter Primary Care Provider Unavailab Christina Garrett [phone] Encounters Encounter Location Date Provider Diagnosis [facility] [address] [place] [address] 12/03/2024 Christina Monaco Plan Of Treatment No Information Progress Notes * Ashlie COOPEROB:1949 (75 yo F)Acc No.[id number]:12/03/2024 Progress Note Patient: Kristal HODGES Provider: Natalya Monaco DPM :1950 A ge:74 Y S ex:Female Date:12/03/2024 Address: [address] [id number] Pcp:Sarah Winter Subjective: * Chief Complaints: * * Medical History: Objective: * Vitals: Assessment: Plan: * Treatment: * Images: * The named appointment provid er may or may not be the originator of this progress note, and it is not deemed complete until electronically signed by the appointment provider. Sign off status: Pending * Provider: Natalya Monaco DPM Date: 12/03/2024 Generated for Asher headley/Sun/Hannahransmitting on: 0 06/24/2025 06:10 AM EDT
--- OUTSIDE RECORDS SUMMARY | 2025-01-25 11:45 | XMS_ITS ---
Author Organization [facility] Address [address] [place] [address] Care Team Providers Care Evp Chief Exploration Officer Name Role Phone Sarah Winter Primary Care Provider Unavailab Christina Garrett [phone] Encounters Encounter Location Date Provider Diagnosis [facility] [address] [place] [address] 01/25/2025 Christina Monaco Plan Of Treatment No Information Progress Notes * Ashlie COOPEROB:1949 (75 yo F)Acc No.[id number]:01/25/2025 Progress Note Patient: Kristal HODGES Provider: Natalya Monaco DPM :1950 A ge:74 Y S ex:Female Date:01/25/2025 Address: [address] [id number] Pcp:Sarah Winter Subjective: * Chief Complaints: * [...] Date: 01/25/2025 Generated for Asher headley/Sun/eTransmitting on: 06/24/2025 06:10 AM EDT
--- OUTSIDE RECORDS SUMMARY | 2025-06-24 06:11 | XMS_ITS | Encounter Summary ---
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 It is not the complete legal health record.[facility]
--- OUTSIDE RECORDS SUMMARY | 2025-06-24 06:11 | XMS_ITS | Clinical Summary ---
Author Organization [facility] Address [address] [place] [address] Phone Care Team Providers Care Bag Turner Name Role Phone Pcp, Unknown Primary Care [...] LA SIBILANCIA 8 g 2 Active omega 4-slx-doe-fish oil 1,000 mg (120 mg-180 mg) Cap [...] PM EDT): Unable to review records from [facility] prior to visit. Symptoms most consistent with muscle strain though question impingement vs tendinopathy given limitations to ROM of left shoulder. Pt requesting referral to [facility] for further evaluation and management. Referral [...] on CPAP. Since 2008. Used to see manager solution. No longer. Now uses [employer] in [place] gets equipment ever 3 months. 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 us Stephan Amaya MD IMG MG EXAMS Final Resu lt * (ABNORMAL) Lipid panel (02/22/2022 12:49 PM EDT) HDL 53 mg/dL [facility] Comment: Interpretation <40 mg/dL: Low HDL cholesterol (major risk factor for CHD) Greater than or equal to 60 mg/dL: High HDL cholesterol ( negative risk factor for CHD) HDL - cholesterol is affected by a number of factors, e.g. smoking, excerise, hormones, sex and age. CHOLESTEROL 174 0 - 240 mg/dL [facility] TRIGLYCERIDES 196(H) 30 - 160 mg/dL [facility] LDL 82 50 - 129 mg/dL [facility] Comment: LDL levels in terms of risk for coronary heart disease: <100 mg/dL: Optimal 100-129 mg/dL: Near or above optimal 130-159 mg/dL: Borderline high 160-189 mg/dL: High >190 mg/dL: Very High CARDIAC RISK RATIO 3.3 3.3 - 4.4 [facility] Blood 02/22/2022 12:4 9 PM EDT 02/22/2022 12:56 PM EDT us Keila Haile MD LAB BLOOD ORDERABLES Final Result [facility] [address] [place] [address] * ENDOSCOPY, COLON (11/04/2020 2:00 PM EST) Narrative Transcriptions Elieser Smith MD - 11/04/2020 2:00 PM EST Patient Name: Kristal Colon Attending MD:: ELIESER SMITH MD Procedure Date: 11/04/2020 2:00 PM Date of : 1950 Age: 70 Admit Type: Outpatient Gender: Female Room: [place] [address] Referring MD: Clarissa Anaya Exam Type: Colonoscopy [...] monitored continuously. The Olympus adult variable colonoscope [id number] #3was introduced through the anus and advanced [...] persists a repeat ct scan daniellauld [email or web address] ELIESRE SMITH MD 11/04/2020 2:29:27 PM This report has been signed electronically. Number of Addenda: 0 Note Initiated On: 11/04/2020 2:00 PM Procedure Code(s): --- Professional --- 05408, Colonoscopy, flexible; with removal of tumor(s), polyp(s), or other lesion(s) by snare technique --- Technical --- 81667, Colonoscopy, flexible; with removal of tumor(s), polyp(s), or other lesion(s) by snare technique Diagnosis Code(s): --- Professional --- Z12.11, Encounter for screening for malignantneoplasm of colon D12.3, Benign neoplasm of transverse colon (hepatic flexure or splenic flexure) --- Technical --- Z12.11, Encounter for screening for malignantneoplasm of colon D12.3, Benign neoplasm of transverse colon (hepatic flexure or splenic flexure) CPT copyright 2018 [employer]. All rights reserved. The codes documented in this report are preliminary and upon apprentice electrician reviewmay be revised to meet current compliance requirements. Procedure Date: 11/04/2020 2:00:[address] [place] [address] Clarissa Anaya DO GI PROCEDURE ORDERABLES Fi nal Result from Last 3 Months or Most Recently Relevant to Health Maintenance Insurance [employer] RE[employer] Care Teams Bag Turner Relationship Specialty Start Date End Date Pcp, Unknown PCP - General 03/13/23 Additional Source Comments The information contained in this document represents components of the legal health record. It is not the complete legal health record.[facility]
--- OUTSIDE RECORDS SUMMARY | 2025-06-24 06:11 | XMS_ITS | Encounter Summary ---
Author Organization [facility] Address [address] [place] [address] Phone Care Team Providers Care Icd 9 Coder Name Role Phone Britta Osei MD Primary Care Provider [phone] Sampson Stafford MD Primary Care Provider + Sarah Winter MD Primary Care Provider Clarissa Anaya DO Primary Care Provider [phone]- [phone] Stephan Amaya MD Primary Care Provider [phone]- [phone] Pcp, Unknown Primary Care Provider Unavailabl e Encounter Details Date Type Department Care Team (Late st Contact Info) Description 01/07/2018 Procedure Pass [address] [place] [address] Social History Tobacco Use Types Packs/Day Years [...] documented as of this encounter Care Teams Icd 9 Coder Relationship Specialty Start Date End Date Britta Osei MD PCP - General 10/03/17 04/16/18 Sampson Stafford MD [address] [place] [address] PCP - General Family Medicine 04/17/18 05/27/18 Sarah Winter MD [address] [place] [phone] PCP - General Internal Medicine 05/28/18 12/28/18 Clarissa Anaya DO [address] [place] [address] [email or web address] PCP - General Family Medicine 12/29/18 02/02/21 Stephan Amaya MD [address] [place] [address], [address] [place] [address] [email or web address] PCP - General Internal Medicine 02/03/21 03/12/23 Pcp, Unknown PCP - General 03/13/23 documented as of this encounter Additional Source Comments The information contained in this document represents components of the legal health record. It is not the complete legal health record.[facility]
--- OUTSIDE RECORDS SUMMARY | 2025-06-24 06:11 | XMS_ITS | Encounter Summary ---
Author Organization 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 file Not on file documented as of this encounter Plan of Treatment Not on file documented as of this encounter Visit Diagnoses Not on filedocumented in this encounter Additional Health Concerns Assessment Noted Time PHQ-2 Depression Total Score: 0 03/07/20 22 2:00 PM EDT documented as of this encounter Care Teams Leather Colorer Relationship Specialty Start Date End Date Stephan Amaya MD [address] [place] [address], [address] [place] [address] PCP - General Internal Medicine 02/03/21 03/12/23 Pcp, Unknown PCP - General 03/13/23 documented as of this encounter Additional Source Comments The information contained in this document represents components of the legal health record. It is not the complete legal health record.[facility]
--- OUTSIDE RECORDS SUMMARY | 2025-06-24 06:11 | XMS_ITS | Encounter Summary ---
Author Organization [facility] Address [address] [place] [address] Phone Care Team Providers Care Baker Laboratory Name Role Phone Clarissa Anaya DO Primary Care Provider +1- [phone] Stephan Amaya MD Primary Care Provider +1- [phone] Pcp, Unknown Primary Care Provider Unavailabl e Encounter Details Date Type Department Care Team (Late st Contact Info) Description 03/02/2019 Ancillary Orders [facility] [address] [place] [address] Clarissa Anaya DO [address] [place] [address] [email or web address] Social History Tobacco Use Types Packs/Day [...] documented as of this encounter Care Teams Baker Laboratory Relationship Specialty Start Date End Date Clarissa Aanya DO [address] [place] [address] [email or web address] PCP - General Family Medicine 12/29/18 02/02/21 Stephan Amaya MD [address] [place] [address], [address] [place] [address] [email or web address] PCP - General Internal Medicine 02/03/21 03/12/23 Pcp, Unknown PCP - General 03/13/23 documented as of this encounter Additional Source Comments The information contained in this document represents components of the legal health record. It is not the complete legal health record.[facility]
--- OUTSIDE RECORDS SUMMARY | 2025-06-24 06:11 | XMS_ITS | Encounter Summary ---
Author Organization [facility] Address [address] [place] [address] Phone Care Team Providers Care Customer Experience Intern Name Role Phone Clarissa Anaya DO Primary Care Provider +1- [phone] Stephan Amaya MD Primary Care Provider +1- [phone] Pcp, Unknown Primary Care Provider Unavailabl e Encounter Details Date Type Department Care Team (Late st Contact Info) Description 11/04/2020 Procedure Pass [facility] Admitting Dept Virtual Department [address] [place] [address] Social History Tobacco Use Types Packs/Day Years [...] 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 Not [...] documented as of this encounter Care Teams Customer Experience Intern Relationship Specialty Start Date End Date Clarissa Anaya DO [address] [place] [address] [email or web address] PCP - General Family Medicine 12/29/18 02/02/21 Stephan Amaya MD [address] [place] [address], [address] [place] [id number] PCP - General Internal Medicine 02/03/21 03/12/23 Pcp, Unknown PCP - General 03/13/23 documented as of this encounter Additional Source Comments The information contained in this document represents components of the legal health record. It is not the complete legal health record.[facility]
--- OUTSIDE RECORDS SUMMARY | 2025-06-24 06:11 | XMS_ITS | Encounter Summary ---
Author Organization [facility] Address [address] [place] [address] [place] [address] Phone Care Team Providers Care Green House Manager Name Role Phone Stephan Amaya MD Primary Care Provider +1- [phone] Pcp, Unknown Primary Care Provider Unavailabl e Encounter Details Date Type Department Care Team (Late st Contact Info) Description 03/15/2021 Ancillary Orders [facility] Medicine [address] [place] [address] [place] [address] Stephan Amaya MD 22 [facility], [address] [place] [address] [email or web address] Social History Tobacco Use Types Packs/Day Years [...] 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 It is not the complete legal health record.[facility]
--- OUTSIDE RECORDS SUMMARY | 2025-06-24 06:11 | XMS_ITS | Encounter Summary ---
Author Organization [facility] Address [address] [place] [address] [place] [address] Phone Care Team Providers Care Juvenile Court Liaison Name Role Phone Stephan Amaya MD Primary Care Provider +1- [phone] Pcp, Unknown Primary Care Provider Unavailabl e Encounter Details Date Type Department Care Team (Late st Contact Info) Description 03/15/2021 Ancillary Orders Virtual Department [address] [place] [address] Stephan Amaya MD 22 [facility], [address] [place] [address] [email or web address] Breast screening Social History Tobacco Use Types [...] 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 It is not the complete legal health record.[facility]
--- OUTSIDE RECORDS SUMMARY | 2025-06-24 06:11 | XMS_ITS | Encounter Summary ---
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 Not on [...] documented as of this encounter Care Teams It Teacher Relationship Specialty Start Date End Date Clarissa Anaya DO [address] [place] [address] [email or web address] PCP - General Family Medicine 12/29/18 02/02/21 Stephan Amaya MD [address] [place] [address], [address] [place] [address] [email or web address] PCP - General Internal Medicine 02/03/21 03/12/23 Pcp, Unknown PCP - General 03/13/23 documented as of this encounter Additional Source Comments The information contained in this document represents components of the legal health record. It is not the complete legal health record.[facility]
--- OUTSIDE RECORDS SUMMARY | 2025-06-24 06:11 | XMS_ITS | Encounter Summary ---
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 Not on file Not on file documented as of this encounter Plan of Treatment Not on file documented as of this encounter Visit Diagnoses Not on filedocumented in this encounter Additional Health Concerns Assessment Noted Time PHQ-2 Depression Total Score: 0 03/07/20 22 2:00 PM EDT documented as of this encounter Care Teams Instructor Kindergarten Relationship Specialty Start Date End Date Stephan Amaya MD [address] [place] [address], [address] [place] [address] PCP - General Internal Medicine 02/03/21 03/12/23 Pcp, Unknown PCP - General 03/13/23 documented as of this encounter Additional Source Comments The information contained in this document represents components of the legal health record. It is not the complete legal health record.[facility]
--- OUTSIDE RECORDS SUMMARY | 2025-06-24 06:11 | XMS_ITS | Encounter Summary ---
Author Organization [facility] Address [address] [place] [address] Phone Care Team Providers Care Web Production Artist Name Role Phone Clarissa Anaya DO Primary Care Provider +1- [phone] Stephan Amaya MD Primary Care Provider +1- [phone] Pcp, Unknown Primary Care Provider Unavailabl e Encounter Details Date Type Department Care Team (Late st Contact Info) Description 03/03/2020 Ancillary Orders [employer] [facility] [address] [place] [address] Clarissa Anaya DO [address] [place] [address] Breast screening Social History Tobacco Use Types [...] 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 The breasts [...] documented as of this encounter Care Teams Web Production Artist Relationship Specialty Start Date End Date Clarissa Anaya DO [address] [place] [address] [email or web address] PCP - General Family Medicine 12/29/18 02/02/21 Stephan Amaya MD [address] [place] [address], [address] [place] [address] [email or web address] PCP - General Internal Medicine 02/03/21 03/12/23 Pcp, Unknown PCP - General 03/13/23 documented as of this encounter Additional Source Comments The information contained in this document represents components of the legal health record. It is not the complete legal health record.[facility]
--- OUTSIDE RECORDS SUMMARY | 2025-06-24 06:11 | XMS_ITS | Patient Health Record ---
Author Organization [facility] Address [address] [place] [address] Care Team Providers Care Herb Grower Name Role Phone Anushkakiran Sarah Primary Care Provider Unavailab Christina Garrett Unavailable [phone] Allergies No Known Allergies Reason For Referral No Information Medications Medication [...] Are you an other tobacco user? No Encounters Encounter Location Date Provider Diagnosis [facility] [place] [address] [facility] [address] [place] [address] 09/07/2024 Christina Monaco [facility] [address] [place] [address] 01/21/2025 Christina Monaco Plan Of Treatment Pending Test Test Name Order Date [id number] NAIL, 6 OR MORE 06/15/2024 Insurance Providers Payer Name Payer Address Payer Phone Subscriber Number Group Number Insured Name Patient Relationship to Insured Coverage Start Date Coverage End Date Blue[employer] 65 Medicare Preferred [address] [place] [address] [id number] Kristal Ingram Self - patient is the insured Medical (General) History Medical History History ICD Code Back,Hip,and Knee pain High blood pressure C PAP Surgical History Surgery Date(Month/Year) 1989
--- OUTSIDE RECORDS SUMMARY | 2025-06-24 06:11 | XMS_ITS | Encounter Summary ---
Author Organization [facility] Address [address] [place] [address] Phone Care Team Providers Care Community Pharmacist Name Role Phone Clarissa Anaya DO Primary Care Provider +1- [phone] Stephan Amaya MD Primary Care Provider +1- [phone] Pcp, Unknown Primary Care Provider Unavailabl e Encounter Details Date Type Department Care Team (Late st Contact Info) Description 03/02/2019 Ancillary Orders [facility] [address] [place] [address] Clarissa Anaya DO [address] [place] [address] [email or web address] Social History Tobacco Use Types Packs/Day [...] documented as of this encounter Care Teams Community Pharmacist Relationship Specialty Start Date End Date Clarissa Anaya DO [address] [place] [address] [email or web address] PCP - General Family Medicine 12/29/18 02/02/21 Stephan Amaya MD [address] [place] [address], [address] [place] [address] [email or web address] PCP - General Internal Medicine 02/03/21 03/12/23 Pcp, Unknown PCP - General 03/13/23 documented as of this encounter Additional Source Comments The information contained in this document represents components of the legal health record. It is not the complete legal health record.[facility]
--- OUTSIDE RECORDS SUMMARY | 2025-06-24 06:11 | XMS_ITS | Encounter Summary ---
Author Organization [facility] Address [address] [place] [address] Phone Care Team Providers Care Table Inspector Name Role Phone Sampson Stafford MD Primary Care Provider + Sarah Winter MD Primary Care Provider Clarissa Anaya DO Primary Care Provider +1- [phone] Stephan Amaya MD Primary Care Provider +1- [phone] Pcp, Unknown Primary Care Provider Unavailabl e Encounter Details Date Type Department Care Team (Late st Contact Info) Description 04/17/2018 Ancillary Orders Virtual Department [address] [place], [place] [phone] Sampson Stafford MD [address] [place] [phone] Breast screening Social History Tobacco Use Types [...] There are scattered fibroglandular densities. POS - [id number] Narrative 05/28/2018 10:08 AM EDT BI MAMMOGRAM SCREENING WITH TOMOSYNTHESIS WITH CAD (BILATERAL), HISTORY: Screening. COMPARISON: Prior studies dating back to 2011, most recently 05/24/2017. TECHNIQUE: Digital breast tomosynthesis was performed in craniocaudal and mediolateral oblique projections. Right lateral exaggerated CC view. Reconstructed screening 2-D views were generated from the tomosynthesis images. Images were interpreted in conjunction with R-2 Image Change Director computer-aided detection. FINDINGS: Breast density: There are [...] There are scattered fibroglandular densities. POS - [id number] Sampson Stafford MD IMG MG EXAMS Final Re sult documented in this encounter Visit Diagnoses Diagnosis Breast screening Breast screening, unspecified Breast screening Breast screening, unspecified documented in this encounter Additional Health Concerns Infection Onset Date Last Indicated Resolved Time CoV-Risk 10/03/2021 10/03/2021 10/13/2021 1:23 AM EST documented as of this encounter Care Teams Table Inspector Relationship Specialty Start Date End Date Sampson Stafford MD [address] [place] [address] PCP - General Family Medicine 04/17/18 05/27/18 Sarah Winter MD [address] [place] [phone] PCP - General Internal Medicine 05/28/18 12/28/18 Clarissa Anaya DO [address] [place] [address] [email or web address] PCP - General Family Medicine 12/29/18 02/02/21 Stephan Amaya MD [address] [place] [address], [address] [place] [address] [email or web address] PCP - General Internal Medicine 02/03/21 03/12/23 Pcp, Unknown PCP - General 03/13/23 documented as of this encounter Additional Source Comments The information contained in this document represents components of the legal health record. It is not the complete legal health record.[facility]
--- OUTSIDE RECORDS SUMMARY | 2025-06-24 06:11 | XMS_ITS | Encounter Summary ---
Author Organization [facility] Address [address] [place] [address] Phone Care Team Providers Care Rn Iv Therapy Name Role Phone Clarissa Anaya DO Primary Care Provider +1- [phone] Stephan Amaya MD Primary Care Provider +1- [phone] Pcp, Unknown Primary Care Provider Unavailabl e Encounter Details Date Type Department Care Team (Late st Contact Info) Description 03/02/2019 Ancillary Orders Virtual Department [address] [place] [address] Clarissa Anaya DO [address] [place] [address] [email or web address] Breast screening Social History Tobacco Use Types [...] tissue is almost entirely fat. POS - [id number] Narrative 05/29/2019 2:03 PM EDT Full-field digital [...] tissue is almost entirely fat. POS - [id number] Clarissa Anaya DO IMG MG EXAMS Final Resu lt documented in this encounter Visit Diagnoses Diagnosis Breast screening Breast screening, unspecified Breast screening Breast screening, unspecified documented in this encounter Additional Health Concerns Infection Onset Date Last Indicated Resolved Time CoV-Risk 10/03/2021 10/03/2021 10/13/2021 1:23 AM EST documented as of this encounter Care Teams Rn Iv Therapy Relationship Specialty Start Date End Date Clarissa Anaya DO [address] [place] [address] [email or web address] PCP - General Family Medicine 12/29/18 02/02/21 Stephan Amaya MD [address] [place] [address], [address] [place] [address] [email or web address] PCP - General Internal Medicine 02/03/21 03/12/23 Pcp, Unknown PCP - General 03/13/23 documented as of this encounter Additional Source Comments The information contained in this document represents components of the legal health record. It is not the complete legal health record.[facility]
--- OUTSIDE RECORDS SUMMARY | 2025-06-24 06:11 | XMS_ITS | Encounter Summary ---
Author Organization [facility] Address [address] [place] [address] Phone Care Team Providers Care Logistics Operations Director Name Role Phone Britta Osei MD Primary Care Provider Sampson Stafford MD Primary Care Provider + Sarah Winter MD Primary Care Provider Clarissa Anaya DO Primary Care Provider +1- [phone] Stephan Amaya MD Primary Care Provider +1- [phone] Pcp, Unknown Primary Care Provider Unavailabl e Reason for Referral * Outpatient Procedure - Closed Specialty Diagnoses / Procedures Referred By Wilda gale Referred To Contact Diagnoses Acute eye pain Chronic nonintractable headache, unspecified headache type Procedures MRI Brain Britta Osei MD Phone: tel: fax: [email or web address] Referral ID Status Reason Start Date Expiration Date Visits Re quested Visits Authorized [id number] Closed 12/23/2017 02/21/2018 1 1 Encounter Details Date Type Department Care Team (Latest Contact Info) Description 01/07/2018 Ancillary Orders Virtual Department [address] [place] [address] Britta Osei MD [address] [place] [address], [address] [place] [phone] [email or web address] Acute eye pain; Chronic nonintractable [...] to be an actionable finding. POS - [id number] Narrative 01/16/2018 11:27 AM EDT HISTORY: Headache, [...] likely to be anactionable finding. POS - [id number] Britta Osei MD IMG MR HEAD/NECK Final Result documented in this encounter Visit Diagnoses Diagnosis Acute eye pain Chronic nonintractable headache, unspecified headache type Acute eye pain Chronic nonintractable headache, unspecified headache type documented in this encounter Additional Health Concerns Infection Onset Date Last Indicated Resolved Time CoV-Risk 10/03/2021 10/03/2021 10/13/2021 1:23 AM EST documented as of this encounter Care Teams Logistics Operations Director Relationship Specialty Start Date End Date Britta Osei MD [email or web address] PCP - General 10/03/17 04/16/18 Sampson Stafford MD [address] [place] [address] PCP - General Family Medicine 04/17/18 05/27/18 Sarah Winter MD [address] [place] [phone] PCP - General Internal Medicine 05/28/18 12/28/18 Clarissa Anaya DO [address] [place] [address] PCP - General Family Medicine 12/29/18 02/02/21 Stephan Amaya MD [address] [place] [address], [address] [place] [address] PCP - General Internal Medicine 02/03/21 03/12/23 Pcp, Unknown PCP - General 03/13/23 documented as of this encounter Additional Source Comments The information contained in this document represents components of the legal health record. It is not the complete legal health record.[facility]
--- OUTSIDE RECORDS SUMMARY | 2025-06-24 06:11 | XMS_ITS | Clinical Summary ---
Author Organization [employer] Address [address] [facility] 7[address] [place] [address] Care Team Providers Care Shingle Inspector Name Role Phone Unavailable Primary Care Provider Unavailabl e Allergies No known active allergies Medications albuterol 108 (90 Base) MCG/ACT inhaler TOME DOS INHALACIONES POR VIA ORAL CADA CUATRO HORAS CUANDO SEA NECESARIO PARA LA SIBILANCIA 10/02/19 Active atorvastatin (Lipitor) 20 MG tablet Take [...] ORALLY ONCE DIRECTED BY [facility]OLOGY DEPARTMENT AT [facility] 12/17/19 25 Active solifenacin (VESIcare) 5 MG tablet Take 1 tablet by mouth Once per day. 12/15/19 25 Active Active Problems Problem Noted Date Diagnosed [...] on CPAP. Since 2008. 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 No longer. Now uses [facility] in [place] gets equipment ever 3 months. Encounters Date Type Department Care Team Description 05/19/2025 3:00 PM EDT Office Visit [facility] [address] [place] [address] Cristobal Lopez 05/18/2025 Telephone [facility] [address] [place] [address] Shlomo Ortez DDS 05/12/2025 1:00 PM EDT Office Visit [facility] [address] [place] [address] Radha Collins DDS Dental caries (Primary Dx); Symptomatic irreversible [...] Tdap) 10/07/2020 10/06/2020, 03/13/2009 Mammogram 06/05/2024 06/05/2022, 09/0 02/2022, 06/02/2021, Additional history exists COVID-19 Vaccine [...]
[2025-06-24 08:18] LABS: Alanine Aminotransferase 15 U/L (0-31); Albumin Level 4.3 g/dL (3.5-5.0); Alkaline Phosphatase 70 U/L (39-117); Anion Gap 10 (12-20); Aspartate Amino Transferase 23 U/L (5-31); Blood Urea Nitrogen 11 mg/dL (9-16); Calcium 9.6 mg/dL (8.4-10.2); Carbon Dioxide 27 mmol/L (22-29); Chloride 110 mmol/L (96-108); Cholesterol 240 mg/dL (<200); Estimated Glomerular Filt Rate > 60; HDL Cholesterol 52 mg/dL (>40); Potassium 4.4 mmol/L (3.3-5.1); Sodium 143 mmol/L (135-145); Total Protein 6.8 g/dL (6.5-8.0); Triglycerides 146 mg/dL (<150)
== END 2025-06-24 06:08 | disposition home or self-care (01) ==
LOC: HO.LAB 06:07
PROVIDERS: PCP Internal Medicine; Visit Provider Internal Medicine
DX: G47.33 Obstructive sleep apnea (adult) (pediatric) (principal); E78.00 Pure hypercholesterolemia, unspecified; I10 Essential (primary) hypertension; Z68.42 Body mass index [BMI] 45.0-49.9, adult
CPT/HCPCS: 36415; 80053; 80061

== ENCOUNTER 2025-06-28 10:51 | Outpatient (REF) | payer MEDICARE, SELFPAY ==
--- OUTSIDE RECORDS SUMMARY | 2024-09-07 11:45 | XMS_ITS ---
Author Organization [facility] Address [address] [place] [address] Care Team Providers Care Hand Box Coverer Name Role Phone Sarah Winter Primary Care Provider Unavailab Christina Garrett [phone] Encounters Encounter Location Date Provider Diagnosis [facility] [address] [place] [address] 09/07/2024 Christina Monaco Plan Of Treatment No Information Progress Notes * Ashlie COOPEROB:1949 (75 yo F)Acc No.[id number]:09/07/2024 Progress Note Patient: Kristal HODGES Provider: Natalya Monaco DPM :1950 A ge:74 Y S ex:Female Date:09/07/2024 Address: [address] [id number] Pcp:Sarah Winter Subjective: * Chief Complaints: * * Medical History: Objective: * Vitals: Assessment: Plan: * Treatment: * Images: * The named appointment provid er may or may not be the originator of this progress note, and it is not deemed complete until electronically signed by the appointment provider. Sign off status: Pending * Provider: Natalya Monaco DPM Date: 1 11/08/2023 Generated for Asher headley/Sun/eTransmitting on: 0 06/28/2025 12:23 PM EDT
--- OUTSIDE RECORDS SUMMARY | 2024-12-03 10:45 | XMS_ITS ---
Author Organization [facility] Address [address] [place] [address] Care Team Providers Care Rn Peritoneal Dialysis Name Role Phone Sarah Winter Primary Care Provider Unavailab Christina Garrett [phone] Encounters Encounter Location Date Provider Diagnosis [facility] [address] [place] [address] 12/03/2024 Christina Monaco Plan Of Treatment No Information Progress Notes * Ashlie COOPEROB:1949 (75 yo F)Acc No.[id number]:12/03/2024 Progress Note Patient: Kristal HODGES Provider: Natalya Monaco DPM :1950 A ge:74 Y S ex:Female Date:12/03/2024 Address: [address] [id number] Pcp:Sarah Winter Subjective: * Chief Complaints: * [...] 0 12/03/2024 Generated for Asher headley/Sun/Hannahransmitting on: 06/28/2025 12:22 PM EDT
--- OUTSIDE RECORDS SUMMARY | 2025-01-25 11:45 | XMS_ITS ---
Author Organization [facility] Address [address] [place] [address] Care Team Providers Care Wood Heel Fitter Machine Name Role Phone Sarah Winter Primary Care Provider Unavailab Christina Garrett [phone] Encounters Encounter Location Date Provider Diagnosis [facility] [address] [place] [address] 01/25/2025 Christina Monaco Plan Of Treatment No Information Progress Notes * Ashlie COOPEROB:1949 (75 yo F)Acc No.[id number]:01/25/2025 Progress Note Patient: Kristal HODGES Provider: Natalya Monaco DPM :1950 A ge:74 Y S ex:Female Date:01/25/2025 Address: [address] [id number] Pcp:Sarah Winter Subjective: * Chief Complaints: * [...] Date: 01/25/2025 Generated for Asher headley/Sun/eTransmitting on: 06/28/2025 12:22 PM EDT
--- NOTE | ~2025-06-28 | MM_ITS ---
EXAMINATION: MM SCREENING DIGITAL BREAST TOMOSYNTHESIS, BILATERAL CLINICAL INFORMATION: Screening. Asymptomatic. COMPARISON: Mammography: Comparison is made with available priors TECHNIQUE: Digital breast mammography with tomosynthesis is performed in both the craniocaudal and mediolateral oblique views along with computer-aided detection (CAD). FINDINGS: There are scattered areas of fibroglandular density. There are no significant masses, abnormal calcifications, or other abnormalities. MM/MM tomosynthesis screening BI IMPRESSION: No mammographic evidence of malignancy. ASSESSMENT: BI-RADS Category 1: Negative RECOMMENDATION: Routine annual mammography screening. 1 year F/U This examination should not preclude the clinical evaluation of a suspicious palpable abnormality. This patient's information was entered into a reminder system with a target due date for their next mammogram. Electronically signed by: Monique Cardenas DO 06/29/2025 05:01 PM EDT
--- OUTSIDE RECORDS SUMMARY | 2025-06-28 12:22 | XMS_ITS | Encounter Summary ---
Author Organization [facility] Address [address] [place] [address] Phone Care Team Providers Care Home Health Attendant Name Role Phone Clarissa Anaya DO Primary Care Provider +1- [phone] Stephan Amaya MD Primary Care Provider +1- [phone] Pcp, Unknown Primary Care Provider Unavailabl e Encounter Details Date Type Department Care Team (Late st Contact Info) Description 03/02/2019 Ancillary Orders [facility] [address] [place] [address] Clarissa Anaya DO [address] [place] [address] [email or web address] Social History Tobacco Use Types Packs/Day [...] documented as of this encounter Care Teams Home Health Attendant Relationship Specialty Start Date End Date Clarissa Anaya DO [address] [place] [address] [email or web address] PCP - General Family Medicine 12/29/18 02/02/21 Stephan Amaya MD [address] [place] [address], [address] [place] [address] PCP - General Internal Medicine 02/03/21 03/12/23 Pcp, Unknown PCP - General 03/13/23 documented as of this encounter Additional Source Comments The information contained in this document represents components of the legal health record. It is not the complete legal health record.[facility]
--- OUTSIDE RECORDS SUMMARY | 2025-06-28 12:22 | XMS_ITS | Encounter Summary ---
Author Organization [facility] Address [address] [place] [address] Phone Care Team Providers Care It Infrastructure Architect Name Role Phone Clarissa Anaya DO Primary Care Provider +1- [phone] Stephan Amaya MD Primary Care Provider +1- [phone] Pcp, Unknown Primary Care Provider Unavailabl e Encounter Details Date Type Department Care Team (Late st Contact Info) Description 03/03/2020 Ancillary Orders [employer] [facility] Medicine [address] [place] [address] Clarissa Anaya DO [address] [place] [address] [email or web address] Breast screening Social History Tobacco Use Types [...] 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 The breasts [...] as of this encounter Care Teams It Infrastructure Architect Relationship Specialty Start Date End Date Clarissa Anaya DO [address] [place] [address] [email or web address] PCP - General Family Medicine 12/29/18 02/02/21 Stephan Amaya MD [address] [place] [address], [address] [place] [address] PCP - General Internal Medicine 02/03/21 03/12/23 Pcp, Unknown PCP - General 03/13/23 documented as of this encounter Additional Source Comments The information contained in this document represents components of the legal health record. It is not the complete legal health record.[facility]
--- OUTSIDE RECORDS SUMMARY | 2025-06-28 12:22 | XMS_ITS | Encounter Summary ---
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 It is not the complete legal health record.[facility]
--- OUTSIDE RECORDS SUMMARY | 2025-06-28 12:22 | XMS_ITS | Encounter Summary ---
Author Organization [facility] Address [address] [place] [address] [place] [address] Phone Care Team Providers Care Machine Joiner Cementer Name Role Phone Stephan Amaya MD Primary Care Provider +1- [phone] Pcp, Unknown Primary Care Provider Unavailabl e Encounter Details Date Type Department Care Team (Late st Contact Info) Description 03/15/2021 Ancillary Orders [facility] Medicine [address] [place] [address] [place] [address] Stephan Amaya MD [address] 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 It is not the complete legal health record.[facility]
--- OUTSIDE RECORDS SUMMARY | 2025-06-28 12:22 | XMS_ITS | Patient Health Record ---
Author Organization [facility] Address [address] [place] [address] Care Team Providers Care Occ Therapy Asst Name Role Phone Anushkakiran Sarah Primary Care Provider Unavailab Christina Garrett Unavailable [phone] Allergies No Known Allergies Reason For Referral [...] No Encounters Encounter Location Date Provider Diagnosis Only Podiatry [place] [address] [facility] [address] [place] [address] 09/07/2024 [facility] [address] [place] [address] 01/21/2025 Christina Monaco Plan Of Treatment Pending Test Test Name Order Date [id number] NAIL, 6 OR MORE 06/15/2024 Insurance Providers Payer Name Payer Address Payer Phone Subscriber Number Group Number Insured Name Patient Relationship to Insured Coverage Start Date Coverage End Date Blue[employer] 65 Medicare Preferred [address] [place] [address] [phone] [id number] Kristal Ingram Self - patient is the insured Medical (General) History Medical History History ICD Code Back,Hip,and Knee pain High blood pressure C PAP Surgical History Surgery Date(Month/Year) 1989
--- OUTSIDE RECORDS SUMMARY | 2025-06-28 12:22 | XMS_ITS | Encounter Summary ---
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 file Not on file documented as of this encounter Plan of Treatment Not on file documented as of this encounter Visit Diagnoses Not on filedocumented in this encounter Additional Health Concerns Assessment Noted Time PHQ-2 Depression Total Score: 0 03/07/20 22 2:00 PM EDT documented as of this encounter Care Teams Drilling Engineer Relationship Specialty Start Date End Date Stephan Amaya MD [address] [place] [address], [address] [place] [address] PCP - General Internal Medicine 02/03/21 03/12/23 Pcp, Unknown PCP - General 03/13/23 documented as of this encounter Additional Source Comments The information contained in this document represents components of the legal health record. It is not the complete legal health record.[facility]
--- OUTSIDE RECORDS SUMMARY | 2025-06-28 12:22 | XMS_ITS | Clinical Summary ---
Author Organization [employer] Address [address] [facility] 7t [place] [address] Care Team Providers Care It Technical Architect Name Role Phone Unavailable Primary Care Provider [...] ORALLY ONCE DIRECTED BY [facility] AT [facility] 12/17/19 25 Active solifenacin (VESIcare) 5 MG [...] on CPAP. Since 2008. Used to see senior it business analyst. No longer. Now uses [facility] in [place] gets equipment ever 3 months. Encounters Date Type Department Care Team Description 05/19/2025 3:00 PM EDT Office Visit [facility] [address] [place] [address] Cristobal Lopez 05/18/[address] [facility] [address] [place] [address] Shlomo Ortez DDS 05/12/2025 1:00 PM EDT Office Visit [facility] [address] [place] [address] Radha Collins DDS Dental caries (Primary Dx); [...]
--- OUTSIDE RECORDS SUMMARY | 2025-06-28 12:22 | XMS_ITS | Encounter Summary ---
Author Organization [facility] Address [address] [place] [address] [place] [address] Phone Care Team Providers Care Unit Control Clerk Name Role Phone Stephan Amaya MD Primary Care Provider +1- [phone] Pcp, Unknown Primary Care Provider Unavailabl e Encounter Details Date Type Department Care Team (Late st Contact Info) Description 03/15/2021 Ancillary Orders Virtual Department [address] [place] [address] Stephan Amaya MD [address] [facility], [address] [place] [address] 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 PCP - General Internal Medicine 02/03/21 03/12/23 Pcp, Unknown PCP - General 03/13/23 documented as of this encounter Additional Source Comments The information contained in this document represents components of the legal health record. It is not the complete legal health record.[facility]
--- OUTSIDE RECORDS SUMMARY | 2025-06-28 12:23 | XMS_ITS | Encounter Summary ---
Author Organization [facility] Address [address] [place] [address] Phone Care Team Providers Care Manager Camp Name Role Phone Clarissa Anaya DO Primary Care Provider +1- [phone] Stephan Amaya MD Primary Care Provider +1- [phone] Pcp, Unknown Primary Care Provider Unavailabl e Encounter Details Date Type Department Care Team (Late st Contact Info) Description 03/02/2019 Ancillary Orders [facility] [address] [place] [address] Clarissa Anaya DO [address] [place] [address] [email or web address] Social History Tobacco Use Types Packs/Day [...] as of this encounter Care Teams Manager Camp Relationship Specialty Start Date End Date Clarissa Anaya DO [address] [place] [address] [email or web address] PCP - General Family Medicine 12/29/18 02/02/21 Stephan Amaya MD [address] [place] [address], [address] [place] [address] PCP - General Internal Medicine 02/03/21 03/12/23 Pcp, Unknown PCP - General 03/13/23 documented as of this encounter Additional Source Comments The information contained in this document represents components of the legal health record. It is not the complete legal health record.[facility]
--- OUTSIDE RECORDS SUMMARY | 2025-06-28 12:23 | XMS_ITS | Encounter Summary ---
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 Not [...] documented as of this encounter Care Teams District Representative Relationship Specialty Start Date End Date Clarsisa Anaya DO [address] [place] [address] [email or web address] PCP - General Family Medicine 12/29/18 02/02/21 Stephan Amaya MD [address] [place] [address], [address] [place] [id number] [email or web address] PCP - General Internal Medicine 02/03/21 03/12/23 Pcp, Unknown PCP - General 03/13/23 documented as of this encounter Additional Source Comments The information contained in this document represents components of the legal health record. It is not the complete legal health record.[facility]
--- OUTSIDE RECORDS SUMMARY | 2025-06-28 12:23 | XMS_ITS | Encounter Summary ---
Author Organization [facility] Address [address] [place] [address] Phone Care Team Providers Care Router Tender Name Role Phone Sampson Stafford MD Primary Care Provider + Sarah Winter MD Primary Care Provider Clarissa Anaya DO Primary Care Provider +1- [phone] Stephan Amaya MD Primary Care Provider +1- [phone] Pcp, Unknown Primary Care Provider Unavailabl e Encounter Details Date Type Department Care Team (Late st Contact Info) Description 04/17/2018 Ancillary Orders Virtual Department [address] [place], [place] [id number] Sampson Stafford MD [address] [place] [address] [id number] Breast screening Social History Tobacco Use Types [...] There are scattered fibroglandular densities. POS - [id number] Narrative 05/28/2018 10:08 AM EDT BI MAMMOGRAM SCREENING WITH TOMOSYNTHESIS WITH CAD (BILATERAL), HISTORY: Screening. COMPARISON: Prior studies dating back to 2011, most recently 05/24/2017. TECHNIQUE: Digital breast tomosynthesis was performed in craniocaudal and mediolateral oblique projections. Right lateral exaggerated CC view. Reconstructed screening 2-D views were generated from the tomosynthesis images. Images were interpreted in conjunction with R-2 Image Technical Support Technician computer-aided detection. FINDINGS: Breast density: There are [...] There are scattered fibroglandular densities. POS - [id number] Sampson Stafford MD IMG MG EXAMS Final Re sult documented in this encounter Visit Diagnoses Diagnosis Breast screening Breast screening, unspecified Breast screening Breast screening, unspecified documented in this encounter Additional Health Concerns Infection Onset Date Last Indicated Resolved Time CoV-Risk 10/03/2021 10/03/2021 10/13/2021 1:23 AM EST documented as of this encounter Care Teams Router Tender Relationship Specialty Start Date End Date Samspon Stafford MD [address] [place] [address] PCP - General Family Medicine 04/17/18 05/27/18 Sarah Winter MD [address] [place] [phone] PCP - General Internal Medicine 05/28/18 12/28/18 Clarissa Anaya DO [address] [place] [address] [email or web address] PCP - General Family Medicine 12/29/18 02/02/21 Stephan Amaya MD [address] [place] [address], [address] [place] [address] PCP - General Internal Medicine 02/03/21 03/12/23 Pcp, Unknown PCP - General 03/13/23 documented as of this encounter Additional Source Comments The information contained in this document represents components of the legal health record. It is not the complete legal health record.[facility]
--- OUTSIDE RECORDS SUMMARY | 2025-06-28 12:23 | XMS_ITS | Encounter Summary ---
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 on file Not on file documented as of this encounter Plan of Treatment Not on file documented as of this encounter Visit Diagnoses Not on filedocumented in this encounter Additional Health Concerns Assessment Noted Time PHQ-2 Depression Total Score: 0 03/07/20 22 2:00 PM EDT documented as of this encounter Care Teams Bartender Manager Relationship Specialty Start Date End Date Stephan Amaya MD [address] [place] [address], [address] [place] [address] PCP - General Internal Medicine 02/03/21 03/12/23 Pcp, Unknown PCP - General 03/13/23 documented as of this encounter Additional Source Comments The information contained in this document represents components of the legal health record. It is not the complete legal health record.[facility]
--- OUTSIDE RECORDS SUMMARY | 2025-06-28 12:23 | XMS_ITS | Clinical Summary ---
Author Organization [facility] Address [address] [place] [address] Phone Care Team Providers Care Surveying Or Spatial Science Technician Name Role Phone Pcp, Unknown Primary [...] LA SIBILANCIA 8 g 2 Active omega 0-ozf-mhu-fish oil 1,000 mg (120 mg-180 mg) Cap [...] PM EDT): Unable to review records from [facility] prior to visit. Symptoms most consistent with muscle strain though question impingement vs tendinopathy given limitations to ROM of left shoulder. Pt requesting referral to [facility] for further evaluation and management. Referral [...] on CPAP. Since 2008. Used to see personal lines advisor. No longer. Now uses [facility] in [place] gets equipment ever 3 months. 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 smoking, excerise, hormones, sex and age. CHOLESTEROL 174 0 - 240 mg/dL [facility] TRIGLYCERIDES 196(H) 30 - 160 mg/dL [facility] LDL 82 50 - 129 mg/dL [facility] Comment: LDL levels in terms of risk for coronary heart disease: <100 mg/dL: Optimal 100-129 mg/dL: Near or above optimal 130-159 mg/dL: Borderline high 160-189 mg/dL: High >190 mg/dL: Very High CARDIAC RISK RATIO 3.3 3.3 - 4.4 [facility] Blood 02/22/2022 12:4 9 PM EDT 02/22/2022 12:56 PM EDT us Keila Haile MD LAB BLOOD ORDERABLES Final Result [facility] [address] [place] [address] * ENDOSCOPY, COLON (11/04/2020 2:00 PM EST) Narrative Transcriptions Elieser Smith MD - 11/04/2020 2:00 PM EST Patient Name: Kristal Colon Attending MD:: ELIESER SMITH MD Procedure Date: 11/04/2020 2:00 PM Date of : 1950 Age: 70 Admit Type: Outpatient Gender: Female Room: [place] [address] Referring MD: Clarissa Anaya Exam Type: Colonoscopy [...] monitored continuously. The Olympus adult variable colonoscope [id number] #3was introduced through the anus and advanced [...] 2:00 PM Procedure Code(s): --- Professional --- 22222, Colonoscopy, flexible; with removal of tumor(s), polyp(s), or other lesion(s) by snare technique --- Technical --- 58954, Colonoscopy, flexible; with removal of tumor(s), polyp(s), or other lesion(s) by snare technique Diagnosis Code(s): --- Professional --- Z12.11, Encounter for screening for malignantneoplasm of colon D12.3, Benign neoplasm of transverse colon (hepatic flexure or splenic flexure) --- Technical --- Z12.11, Encounter for screening for malignantneoplasm of colon D12.3, Benign neoplasm of transverse colon (hepatic flexure or splenic flexure) CPT copyright 2018 [employer]. All rights reserved. The codes documented in this report are preliminary and upon vocational horticulture instructor reviewmay be revised to meet current compliance requirements. Procedure Date: 11/04/2020 2:00:[address] [place] [address] Clarissa Anaya DO GI PROCEDURE ORDERABLES Fi nal Result from Last 3 Months or Most Recently Relevant to Health Maintenance Insurance [employer] RE[employer] Care Teams Surveying Or Spatial Science Technician Relationship Specialty Start Date End Date Pcp, Unknown PCP - General 03/13/23 Additional Source Comments The information contained in this document represents components of the legal health record. It is not the complete legal health record.[facility]
--- OUTSIDE RECORDS SUMMARY | 2025-06-28 12:23 | XMS_ITS | Encounter Summary ---
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 Not on [...] documented as of this encounter Care Teams Rental Counter Clerk Relationship Specialty Start Date End Date Clarissa Anaya DO [address] [place] [address] [email or web address] PCP - General Family Medicine 12/29/18 02/02/21 Stephan Amaya MD [address] [place] [address], [address] [place] [address] [email or web address] PCP - General Internal Medicine 02/03/21 03/12/23 Pcp, Unknown PCP - General 03/13/23 documented as of this encounter Additional Source Comments The information contained in this document represents components of the legal health record. It is not the complete legal health record.[facility]
--- OUTSIDE RECORDS SUMMARY | 2025-06-28 12:23 | XMS_ITS | Encounter Summary ---
Author Organization [facility] Address [address] [place] [id number] Phone Care Team Providers Care Gristmiller Name Role Phone Clarissa Anaya DO Primary Care Provider [phone] Stephan Amaya MD Primary Care Provider [phone] Pcp, Unknown Primary Care Provider Unavailabl e Encounter Details Date Type Department Care Team (Late st Contact Info) Description 03/02/2019 Ancillary Orders Virtual Department [address] [place] [address] Clarissa Anaya DO [address] [place] [address] [email or web address] Breast screening Social History Tobacco Use Types [...] tissue is almost entirely fat. POS - [id number] Narrative 05/29/2019 2:03 PM EDT Full-field digital [...] tissue is almost entirely fat. POS - [id number] Clarissa Anaya DO IMG MG EXAMS Final Resu lt documented in this encounter Visit Diagnoses Diagnosis Breast screening Breast screening, unspecified Breast screening Breast screening, unspecified documented in this encounter Additional Health Concerns Infection Onset Date Last Indicated Resolved Time CoV-Risk 10/03/2021 10/03/2021 10/13/2021 1:23 AM EST documented as of this encounter Care Teams Gristmiller Relationship Specialty Start Date End Date Clarissa Anaya DO [address] [place] [address] [email or web address] PCP - General Family Medicine 12/29/18 02/02/21 Stephan Amaya MD [address] [place] [address], [address] [place] [address] [email or web address] PCP - General Internal Medicine 02/03/21 03/12/23 Pcp, Unknown PCP - General 03/13/23 documented as of this encounter Additional Source Comments The information contained in this document represents components of the legal health record. It is not the complete legal health record.[facility]
--- OUTSIDE RECORDS SUMMARY | 2025-06-28 12:23 | XMS_ITS | Encounter Summary ---
Author Organization [facility] Address [address] [place] [address] Phone Care Team Providers Care Crime Victim Specialist Name Role Phone Britta Osei MD Primary Care Provider [phone] Sampson Stafford MD Primary Care Provider + Sarah Winter MD Primary Care Provider Clarissa Anaya DO Primary Care Provider [phone] Stephan Amaya MD Primary Care Provider [phone] Pcp, Unknown Primary Care Provider Unavailabl e Encounter Details Date Type Department Care Team (Late st Contact Info) Description 01/07/2018 Procedure Pass [address] [place] [address] Social History Tobacco Use Types Packs/Day Years [...] documented as of this encounter Care Teams Crime Victim Specialist Relationship Specialty Start Date End Date Britta Osei MD PCP - General 10/03/17 04/16/18 Sampson Stafford MD [address] [place] [id number] PCP - General Family Medicine 04/17/18 05/27/18 Sarah Winter MD [address] [place] [phone] PCP - General Internal Medicine 05/28/18 12/28/18 Clarissa Anaya DO [address] [place] [id number] [email or web address] PCP - General Family Medicine 12/29/18 02/02/21 tSephan Amaya MD [address] [place] [address], [address] [place] [address] [email or web address] PCP - General Internal Medicine 02/03/21 03/12/23 Pcp, Unknown PCP - General 03/13/23 documented as of this encounter Additional Source Comments The information contained in this document represents components of the legal health record. It is not the complete legal health record.[facility]
== END 2025-06-28 10:52 | disposition home or self-care (01) ==
LOC: HO.MAMMO 10:51
PROVIDERS: PCP Internal Medicine; Visit Provider Internal Medicine
DX: Z12.31 Encounter for screening mammogram for malignant neoplasm of breast (principal)
CPT/HCPCS: 77063; 77067

== ENCOUNTER → 2025-06-28 11:15 | Outpatient (BNV) | payer MEDICARE, SELFPAY | PROVIDERS: PCP Internal Medicine; Visit Provider Internal Medicine | DX: Z12.31 Encounter for screening mammogram for malignant neoplasm of breast (principal) | CPT/HCPCS: 77063; 77067 ==